=== PATIENT | male | born 1955 | race Caucasian/White ===

== ENCOUNTER 2018-06-26 08:13 | Inpatient (IN) | payer OTHER ==
[~2018-06-26] VITALS: Ht 182.9 cm; Wt 109.0 kg
[2018-06-26] MEDS ORDERED: SOD CHLORIDE 0.9% 500 ML IV STA (08:44)
[2018-06-26] MEDS ORDERED: KETOROLAC 15 MG INJ IV STA (08:44)
--- NOTE | 2018-06-26 08:55 | ERD ---
ER Documentation Chief Complaint Chief Complaint Right leg pain,redness, swelling, oozing x 1 week HPI This is a 62-year-old man with a history of chronic right lower leg ulceration presenting with increased pain, swelling, redness to the right lateral leg despite using cephalexin x10 days. He states he also has a history of right lower extremity DVT and uses rivaroxaban daily for anticoagulation. Patient denies fevers or chills, no chest pain or shortness of breath, no vomiting or diarrhea, no recent trauma ROS All systems reviewed and are negative except as per history of present illness. Medications Home Meds Reported Medications Metformin Hcl* (Metformin Hcl*) 500 Mg Tablet, 500 MG PO WITH BREAKFAST DINNE, #60 TAB 06/26/18 Hydrochlorothiazide* (Hydrochlorothiazide*) 12.5 Mg Tablet, 12.5 MG PO DAILY, #30 TAB 06/26/18 Rivaroxaban* (Xarelto*) 20 Mg Tablet, 20 MG PO WITH DINNER, TAB 06/26/18 Cephalexin* (Cephalexin*) 500 Mg Capsule, 500 MG PO BID, #28 CAP 06/26/18 Allergies Allergies: Coded Allergies: No Known Allergy (Unverified , 06/26/18) PMhx/Soc Obesity, hypertension, diabetes mellitus, right lower extremity DVT, right lower extremity ulcer FmHx Family History: No diabetes Physical Exam Vitals Vital Signs Date Temp Pulse Resp B/P (MAP) Pulse Ox O2 O2 Flow FiO2 Time Delivery Rate 06/26/18 80 16 112/76 99 Room Air 10:45 (88) 06/26/18 97.8 75 18 125/78 95 08:14 (94) Physical Exam GENERAL: Well-developed, well-nourished, well-hydrated, in no apparent distress, looks nontoxic in appearance CARDIAC: Regular rate and rhythm, no murmurs rubs or gallops LUNGS: Clear bilaterally no wheezing crackles or stridor ABDOMEN: Soft nontender, protuberant, no rigidity or rebound SKIN: Warm and dry to touch, large suppurative ulceration to the right lateral lower extremity with surrounding induration and erythema EXTREMITIES: No clubbing cyanosis, bilateral lower extremity edema worse on the right leg compared to the left, chronic erythematous skin changes to the right lower extremity with large suppurative ulceration to the right lateral leg Result Diagram: 5/13 06/26/18 0913 Results 24 hrs Laboratory Tests Test 06/26/18 09:13 White Blood Count 7.9 10^3/ul Red Blood Count 4.98 10^6/ul Hemoglobin 14.0 g/dl Hematocrit 42.7 % Mean Corpuscular Volume 85.7 fl Mean Corpuscular Hemoglobin 28.1 pg Mean Corpuscular Hemoglobin Concent 32.8 g/dl Red Cell Distribution Width 13.4 % Platelet Count 217 10^3/UL Mean Platelet Volume 9.6 fl Immature Granulocytes % 0.800 % Neutrophils % 70.1 % Lymphocytes % 18.7 % Monocytes % 7.6 % Eosinophils % 1.9 % Basophils % 0.9 % Nucleated Red Blood Cells % 0.0 /100WBC Immature Granulocytes # 0.060 10^3/ul Neutrophils # 5.5 10^3/ul Lymphocytes # 1.5 10^3/ul Monocytes # 0.6 10^3/ul Eosinophils # 0.2 10^3/ul Basophils # 0.1 10^3/ul Nucleated Red Blood Cells # 0.0 10^3/ul Prothrombin Time 21.8 Sec Prothrombin Time Ratio 1.7 INR International Normalized Ratio 1.89 Activated Partial Thromboplast Time 40.3 Sec Sodium Level 142 mmol/L Potassium Level 4.0 mmol/L Chloride Level 106 mmol/L Carbon Dioxide Level 24 mmol/L Anion Gap 12 Blood Urea Nitrogen 36 mg/dl Creatinine 1.28 mg/dl Est Glomerular Filtrat Rate mL/min 57 mL/min Glucose Level 160 mg/dl Calcium Level 9.8 mg/dl Total Bilirubin 0.4 mg/dl Direct Bilirubin 0.00 mg/dl Indirect Bilirubin 0.4 mg/dl Aspartate Amino Transf (AST/SGOT) 23 IU/L Alanine Aminotransferase (ALT/SGPT) 30 IU/L Alkaline Phosphatase 75 IU/L Total Protein 7.7 g/dl Albumin 4.5 g/dl Globulin 3.20 g/dl Albumin/Globulin Ratio 1.40 Lipase 138 U/L Current Medications Medications Dose Sig/Miquel Start Time Status Last (Trade) Ordered Route PRN Stop Time Admin Dose Reason Admin Vancomycin 250 ml @ ONCE ONCE 06/26/18 06/26/18 HCl 125 mls/hr IVPB 09:00 10:30 06/26/18 10:59 Piperacillin 100 ml @ ONCE ONCE 06/26/18 DC 06/26/18 Sod/ 200 mls/hr IVPB 09:00 09:22 Tazobactam 06/26/18 09:29 Sod Sodium 500 ml @ Q1H STAT 06/26/18 DC 06/26/18 Chloride 500 mls/hr IV 08:44 09:22 06/26/18 09:43 Ketorolac 15 mg ONCE STAT 06/26/18 DC 06/26/18 Tromethamine IV 08:44 09:22 (Toradol) 06/26/18 08:48 Procedures/MDM IV line was established patient was placed on purification director rhythm strip revealed a sinus rhythm at about 80 bpm with upright P and T waves. Patient was afebrile X-ray right tib/Fib 2V Interpreted by me: Bones: No fracture Joints: No dislocation Foreign body: None Chest X-ray 1V Interpreted by me: Soft Tissue: No acute abnormalities Bones: No acute abnormalities Mediastinum/Cardiac Silhouette/Lungs: No acute abnormalities I administered 500 cc normal saline IV, Toradol 15 mg IV, vancomycin 1 g IV, Zosyn 3.375 g IV CBC and electrolytes were normal, liver functions CBC was normal, electrolytes revealed a BUN/creatinine of 36/1.3, liver function tests were normal, coagulation profile was therapeutic Patient will be admitted to [facility] for continued medical management and IV antibiotics. Further evaluations/imaging deferred to admitting team Patient admitted to [facility] for continued IV antibiotics Departure Diagnosis: Primary Impression: Ulcer of right leg Non-pressure ulcer stage: unspecified non-pressure ulcer stage Qualified Codes: L97.919 - Non-pressure chronic ulcer of unspecified part of right lower leg with unspecified severity Condition: ROBERT Zamorano MD June 26, 2018 08:55
[2018-06-26] MEDS ORDERED: PIPER-TAZO 3.375 GM IV (PMX) 100 ML IVPB ONE (09:00)
[2018-06-26] MEDS ORDERED: VANCOMYCIN 1 GM (PMX) 250 ML IVPB ONE (09:00)
[2018-06-26] MEDS ORDERED: RIVA20TA5 PO (09:43)
[2018-06-26] MEDS ORDERED: CEPH500C PO (09:43)
[2018-06-26] MEDS ORDERED: HYDR12.58 PO (09:44)
[2018-06-26] MEDS ORDERED: METF500T24 PO (09:45)
--- NOTE | 2018-06-26 15:14 | CONS ---
Assessment/Plan Assessment/Plan Hospital Course (Demo Recall) 1. RLE cellulitis: -abx iv -elevate -local wound care 2. RLE pain: -pain mgt 3. Diabetes: -glucose optimization 4. Obesity: bmi 32 -diet and exercise optimization -encourage weight loss 5. Homelessness: -ss consult Thank you. Patient seen and examined in collaboration with Dr. Darrell Ledezma. Consultation Date/Type/Reason Admit Date/Time Date of Consultation: June 26, 2018 Type of Consult surgical Reason for Consultation rle cellulitis Date/Time of Note DATE: 06/26/18 TIME: 15:05 Hx of Present Illness Matthieu Park is a 62 yo man with pmh of diabtese, right lower extremity dvt, currently on anticoagulation, who presented with complaints of right lower extremity pain, swelling, discoloration. Associated symptoms include erythema, some drainage an limitation in rom due to pain. Reportedly he was given taking oral abx but rle has not improved. He denies fevers, chills, congested cough, numbness, tingling of extremity. Notably, he reports that he has recently become homeless and has been living in his car. General surgery was asked to evaluate. 12 point ros was reviewed and is negative except as stated in hpi. Past Medical History as above Home Meds Reported Medications Metformin Hcl* (Metformin Hcl*) 500 Mg Tablet, 500 MG PO WITH BREAKFAST DINNE, #60 TAB 06/26/18 Hydrochlorothiazide* (Hydrochlorothiazide*) 12.5 Mg Tablet, 12.5 MG PO DAILY, #30 TAB 06/26/18 Rivaroxaban* (Xarelto*) 20 Mg Tablet, 20 MG PO WITH DINNER, TAB 06/26/18 Cephalexin* (Cephalexin*) 500 Mg Capsule, 500 MG PO BID, #28 CAP 06/26/18 Allergies: Coded Allergies: No Known Allergy (Unverified , 06/26/18) Past Surgical History Past Surgical Hx: no surgical history Family History Significant Family History: no pertinent family hx Social History Alcohol Use: none Smoking Status: Never smoker Drug Use: none Exam/Review of Systems Exam Vitals Vital Signs Date Temp Pulse Resp B/P (MAP) Pulse Ox O2 O2 Flow FiO2 Time Delivery Rate 06/26/18 78 16 133/85 99 Room Air 15:00 (101) 06/26/18 97.8 08:14 Constitutional: alert, oriented, well developed Psych: nl mood/affect; No anxiety Eyes: nl conjunctiva, EOMI, nl lids, nl sclera ENMT: nl external ears & nose, nl lips & teeth, nl nasal mucosa & septum, mucos a pink and moist Neck: supple, non-tender; No jvd Respiratory: normal air movement; No congested cough Cardiovascular: regular rate and rhythm, nl pulses Gastrointestinal: soft, non-tender; No distended Musculoskeletal: nl extremities to inspection, nl gait and stance Extremities: normal pulses, other (rle: edema, discoloration, erythema, 2 open areas, tenderness) Neurological: nl mental status, nl speech, nl strength Skin: No rash or lesions Results Result Diagram: 06/26/1891206/26/18912 Results 24hrs Laboratory Tests Test 06/26/18 09:13 White Blood Count 7.9 Red Blood Count 4.98 Hemoglobin 14.0 Hematocrit 42.7 Mean Corpuscular Volume 85.7 Mean Corpuscular Hemoglobin 28.1 L Mean Corpuscular Hemoglobin Concent 32.8 Red Cell Distribution Width 13.4 Platelet Count 217 Mean Platelet Volume 9.6 Immature Granulocytes % 0.800 H Neutrophils % 70.1 Lymphocytes % 18.7 Monocytes % 7.6 Eosinophils % 1.9 Basophils % 0.9 Nucleated Red Blood Cells % 0.0 Immature Granulocytes # 0.060 H Neutrophils # 5.5 Lymphocytes # 1.5 Monocytes # 0.6 Eosinophils # 0.2 Basophils # 0.1 Nucleated Red Blood Cells # 0.0 Prothrombin Time 21.8 H Prothrombin Time Ratio 1.7 INR International Normalized Ratio 1.89 Activated Partial Thromboplast Time 40.3 H Sodium Level 142 Potassium Level 4.0 Chloride Level 106 Carbon Dioxide Level 24 Anion Gap 12 Blood Urea Nitrogen 36 H Creatinine 1.28 H Est Glomerular Filtrat Rate mL/min 57 L Glucose Level 160 Calcium Level 9.8 Total Bilirubin 0.4 Direct Bilirubin 0.00 Indirect Bilirubin 0.4 Aspartate Amino Transf (AST/SGOT) 23 Alanine Aminotransferase (ALT/SGPT) 30 Alkaline Phosphatase 75 Total Protein 7.7 Albumin 4.5 Globulin 3.20 Albumin/Globulin Ratio 1.40 Lipase 138 ZAY GASCA NP June 26, 2018 15:14
[2018-06-26 16:30] VITALS: BP 138/68; PULSE 60; RESP 17
[2018-06-26] MEDS ORDERED: ACETAMINOPHEN 325 MG TAB PO PRN (16:30)
[2018-06-26] MEDS ORDERED: VANCOMYCIN IV PER PHARMACY XX SCH (16:30)
[2018-06-26] MEDS ORDERED: NACL 0.9% 3 ML SYG IV SCH (16:30)
[2018-06-26] MEDS ORDERED: ONDANSETRON 4 MG INJ IV PRN (16:30)
[2018-06-26] MEDS ORDERED: DOCUSATE SODIUM 100 MG CAP PO PRN (16:30)
[2018-06-26] MEDS ORDERED: HYDROCODONE/APAP (5/325) TAB PO PRN (16:30)
[2018-06-26] MEDS ORDERED: ZOLPIDEM 5 MG TAB PO PRN (16:30)
[2018-06-26] MEDS ORDERED: PIPER-TAZO 3.375 GM IV (PMX) 100 ML IVPB SCH (17:00)
[2018-06-26] MEDS ORDERED: VANCOMYCIN 1 GM 250 ML IVPB ONE (17:00)
--- NOTE | 2018-06-26 17:05 | HP ---
Date/Time of Note Date/Time of Note DATE: 06/26/18 TIME: 17:00 Assessment/Plan VTE Prophylaxis Pharmacological prophylaxis: rivaroxaban Lines/Catheters IV [facility] Assessment/Plan Hospital Course 1. Right lower extremity cellulitis Patient with history of phimosis in this extremity, diagnosed 1 year ago and has been on Xarelto since with no improvement in baseline swelling Patient now reports progressive erythema and swelling Broad-spectrum antibiotics with vancomycin and Zosyn ID and wound care consultations obtained Resume home Xarelto X-ray with no evidence of fracture Follow-up on ultrasound 2. 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 Prophylaxis: On Xarelto Result Diagram: 06/26/1813 06/26/18 0913 Results 24hrs Laboratory Tests Test 06/26/18 09:13 White Blood Count 7.9 Red Blood Count 4.98 Hemoglobin 14.0 Hematocrit 42.7 Mean Corpuscular Volume 85.7 Mean Corpuscular Hemoglobin 28.1 L Mean Corpuscular Hemoglobin Concent 32.8 Red Cell Distribution Width 13.4 Platelet Count 217 Mean Platelet Volume 9.6 Immature Granulocytes % 0.800 H Neutrophils % 70.1 Lymphocytes % 18.7 Monocytes % 7.6 Eosinophils % 1.9 Basophils % 0.9 Nucleated Red Blood Cells % 0.0 Immature Granulocytes # 0.060 H Neutrophils # 5.5 Lymphocytes # 1.5 Monocytes # 0.6 Eosinophils # 0.2 Basophils # 0.1 Nucleated Red Blood Cells # 0.0 Prothrombin Time 21.8 H Prothrombin Time Ratio 1.7 INR International Normalized Ratio 1.89 Activated Partial Thromboplast Time 40.3 H Sodium Level 142 Potassium Level 4.0 Chloride Level 106 Carbon Dioxide Level 24 Anion Gap 12 Blood Urea Nitrogen 36 H Creatinine 1.28 H Est Glomerular Filtrat Rate mL/min 57 L Glucose Level 160 Calcium Level 9.8 Total Bilirubin 0.4 Direct Bilirubin 0.00 Indirect Bilirubin 0.4 Aspartate Amino Transf (AST/SGOT) 23 Alanine Aminotransferase (ALT/SGPT) 30 Alkaline Phosphatase 75 Total Protein 7.7 Albumin 4.5 Globulin 3.20 Albumin/Globulin Ratio 1.40 Lipase 138 HPI/ROS Admit Date/Time Admit Date/Time June 26, 2018 Hx of Present Illness Patient is a 62-year-old male with history of diabetes as well as right lower extremity thrombosis diagnosed 1 year ago and has been on Xarelto for the past year. Patient is also currently homeless and lives in his car. Patient p resents with worsening swelling and erythema in his right lower extremity as well as abrasion. Patient reports compliance with his Xarelto and states that he continues to have swelling at baseline and his right lower extremity. Patient has no other complaints at this time. ROS Constitutional: no complaints, improved Eyes: no complaints ENT: no complaints Respiratory: no complaints Cardiovascular: no complaints Gastrointestinal: no complaints Genitourinary: no complaints Musculoskeletal: no complaints Skin: erythema Neurologic: no complaints Endocrine: no complaints Lymphatic: no complaints Psychological: no complaints, nl mood/affect Immunologic: no complaints PMH/Family/Social Past Medical History Diabetes, right lower extremity thrombosis Medications Current Medications IV Flush (NS 3 ml) 3 ml PER PROTOCOL IV ; Start 06/26/18 at 16:30 Ondansetron HCl (Zofran Inj) 4 mg Q6H PRN IV NAUSEA/VOMITING; Start 06/26/18 at 16:30 Acetaminophen (Tylenol Tab) 650 mg Q6H PRN PO .PAIN 1-3 OR TEMP; Start 06/26/18 at 16:30 Acetaminophen/ Hydrocodone Bitart ([place] (5/325)) 1 tab Q6H PRN PO .MOD PAIN 4- 6; Start 06/26/18 at 16:30 Morphine Sulfate (morphine) 2 mg Q4H PRN IV .SEVERE PAIN 7-10; Start 06/26/18 at 16:30 Docusate Sodium (Colace) 100 mg Q12H PRN PO .CONSTIPATION; Start 06/26/18 at 16 :30 Zolpidem Tartrate (Ambien) 5 mg QHS PRN PO .INSOMNIA; Start 06/26/18 at 16:30 Hydrochlorothiazide (Hydrochlorothiazide) 12.5 mg DAILY@0600 PO ; Start 06/27/18 at 06:00 Rivaroxaban (Xarelto) 20 mg WITH DINNER PO ; Start 06/26/18 at 18:05 Diagnostic Test (Pha) (Accu-Chek) 1 ea 02 XX ; Start 06/27/18 at 02:00 Insulin Glargine (Lantus) 14 units DAILY@2000 SC ; Start 06/26/18 at 20:00 Insulin Aspart (Novolog Insulin Pen) NOVOLOG *MILD* ALGORITHM WITH MEALS BEDTIME SC ; Start 06/26/18 at 18:05 Vancomycin HCl (Vanco Iv Per Pharmacy) VANCOMYCIN PER PHARMACY PER PROTOCOL XX ; Start 06/26/18 at 16:30 Piperacillin Sod/ Tazobactam Sod 100 ml @ 200 mls/hr Q6 IVPB ; Start 06/26/18 at 17:00 Vancomycin HCl 250 ml @ 125 mls/hr ONCE ONCE IVPB ; Start 06/26/18 at 17:00; Stop 06/26/18 at 18:59 Vancomycin HCl 250 ml @ 125 mls/hr Q12H IVPB ; Start 06/27/18 at 05:00 Coded Allergies: No Known Allergy (Unverified , 06/26/18) Past Surgical History Past Surgical Hx: no surgical history Family History Significant Family History: no pertinent family hx Social History Alcohol Use: none Smoking Status: Never smoker Drug Use: none Exam/Review of Systems Vital Signs Vitals Vital Signs Date Temp Pulse Resp B/P (MAP) Pulse Ox O2 O2 Flow FiO2 Time Delivery Rate 06/26/18 78 16 133/85 99 Room Air 15:00 (101) 06/26/18 97.8 08:14 Exam Constitutional: alert, oriented Respiratory: clear to auscultation Cardiovascular: regular rate and rhythm Gastrointestinal: soft; No distended Musculoskeletal: other (Right lower extremity with severe erythema, swelling and laceration) SULEIMAN VÁZQUEZ June 26, 2018 17:05
[2018-06-26] MEDS: morphine 2 MG INJ IV PRN (17:11)
[2018-06-26] MEDS: INSULIN ASPART [NOVOLOG] 3 ML PEN SC SCH ×2 (18:05→20:21)
[2018-06-26 18:26] VITALS: Ht 182.9 cm; Wt 109.0 kg
[2018-06-26] MEDS: RIVAROXABAN 20 MG TABLET PO SCH (18:59)
[2018-06-26 20:00] VITALS: BP 120/64; PULSE 63; RESP 18
[2018-06-26] MEDS: CEFTRIAXONE 1 GM/50 ML (PMX) 50 ML IVPB SCH (20:06)
--- NOTE | 2018-06-26 20:08 | CONS ---
DATE OF ADMISSION: 06/26/2018 DATE OF CONSULTATION: 06/26/2018 REQUESTING PHYSICIAN: Dr. Suleiman Munoz Thank you, Dr. Munoz, for this consultation HISTORY OF PRESENT ILLNESS: This is a very pleasant, obese, elderly white man with a history of diabetes and chronic bilateral lower extremity venous stasis, right lower extremity chronic cellulitis. The patient was admitted with worsening pain, swelling and erythema of his right lower extremity. Per report, he is homeless and lives in his car. He denies fevers, chills, nausea, vomiting, diarrhea. No chest pain. No shortness of breath. Temperature on admission 97.8, pulse 75, respirations 18, blood pressure 125/78, saturation 95 on room air. WBC 7.9, H and H 14 and 42.7, platelets 217. No shift, no bands. Normal lytes. BUN 36, creatinine 1.28. Chest x-ray on admission revealed no CHF, bilateral atelectasis and scarring. X-ray of right lower extremity revealed no bone lesions or evidence of fracture, moderate osteoarthritis of the ankle. THE PATIENT HAS NO ALLERGIES. He was started on vanco and Zosyn. PAST MEDICAL HISTORY: As per History of Present Illness. SOCIAL HISTORY: The patient denies smoking, alcohol, illicits. REVIEW OF SYSTEMS: As per history. PHYSICAL EXAMINATION: GENERAL: This is obese, well-developed, elderly man who is alert, in no distress. HEENT: Head atraumatic, normocephalic. Sclerae anicteric. Buccal mucosa pink. NECK: Supple. CHEST: Rise symmetrical. Breath sounds clear. HEART: S1, S2. ABDOMEN: Obese, soft. Bowel tones present. EXTREMITIES: With bilateral lower extremity chronic discoloration below knees. Right lower extremity with significant edema, erythema, some old crusting and foul odor. DIAGNOSTIC IMPRESSION: A 62-year-old man admitted with [id number] right lower extremity cellulitis. The patient with bilateral lower extremity venous stasis. PLAN: We are going to change Zosyn to cefepime, add Silvadene topical to right lower extremity. Order venous ultrasound and arterial study and consider podiatry evaluation. We will also do an MRSA surveillance and try to obtain wound culture if able. Discussed with Dr. eJff who is covering for Dr. Soliz. Dictated By: NERA ISMAIL-REN ELIZALDE/NTS Conf#: [id number] DID#: [id number] CC: SULEIMAN MUNOZ MD;*EndCC* MTDD
[2018-06-26] MEDS: SILVER SULFADIAZINE 1% 25 GM CR TOP SCH (20:22)
[2018-06-26] MEDS: INSULIN GLARGINE [LANTus] (100 UNITS/ML) SYG SC SCH (20:42)
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
[2018-06-27 01:51] VITALS: BP 116/67; PULSE 65; RESP 18
[2018-06-27] MEDS: ACCU-CHEK XX SCH (02:45)
[2018-06-27] MEDS: HYDROCHLOROTHIAZIDE 12.5 MG CAP PO SCH (05:17)
[2018-06-27] MEDS: VANCOMYCIN 1 GM 250 ML IVPB SCH ×2 (05:20→18:07)
[2018-06-27] MEDS: morphine 2 MG INJ IV PRN ×3 (05:35→22:14)
[2018-06-27] MEDS: INSULIN ASPART [NOVOLOG] 3 ML PEN SC SCH ×4 (07:50→20:43)
[2018-06-27 08:00] VITALS: BP 118/71; PULSE 56; RESP 18
[2018-06-27] MEDS ORDERED: DAKINS 0.0125%(1/40) 473 ML SOLUTION TP SCH (09:00)
--- NOTE | 2018-06-27 13:48 | PN ---
Date/Time of Note Date/Time of Note DATE: 06/27/18 TIME: 13:46 Assessment/Plan Lines/Catheters IV Catheter Type (from Nrs): Peripheral IV Flores in Place (from Nrs): No Assessment/Plan Chief Complaint/Hosp Course 1. RLE cellulitis: -abx iv -elevate -local wound care -podiatry on board, will defer to podiatry at this time. will sign off. Thank you for allowing us to participate in the care of this patient. 2. RLE pain: -pain mgt 3. Diabetes: -glucose optimization 4. Obesity: bmi 32 -diet and exercise optimization -encourage weight loss 5. Homelessness: -ss consult Thank you. Patient seen and examined in collaboration with Dr. Darrell Ledezma. Subjective 24 Hr Interval Summary No fevers, chills, sob, congested cough, cp, palpitations, mitchell, dizziness, n/v/d/dysuria. Exam/Review of Systems Vital Signs Vitals Vital Signs Date Temp Pulse Resp B/P (MAP) Pulse Ox O2 O2 Flow FiO2 Time Delivery Rate 06/27/18 97.9 56 18 118/71 94 Room Air 08:00 (87) Intake and Output 06/26/18 06/26/18 06/27/18 1515:00 23:00 07:00 IntakeIntake Total 850 ml 450 ml 320 ml BalanceBalance 850 ml 450 ml 320 ml Exam Free Text/Dictation Constitutional: alert, oriented, well developed Psych: nl mood/affect; No anxiety Eyes: nl conjunctiva, EOMI, nl lids, nl sclera ENMT: nl external ears & nose, nl lips & teeth, nl nasal mucosa & septum, mucosa pink and moist Neck: supple, non-tender; No jvd Respiratory: normal air movement; No congested cough Cardiovascular: regular rate and rhythm, nl pulses Gastrointestinal: soft, non-tender; No distended Musculoskeletal: nl extremities to inspection, nl gait and stance Extremities: normal pulses, other (rle: edema (min improvement), discoloration, erythema, 2 open areas, tenderness) Neurological: nl mental status, nl speech, nl strength Skin: No rash or lesions Results Result Diagram: 06/27/18 0609 06/27/18 0609 ZAY GASCA NP June 27, 2018 13:48
[2018-06-27 14:00] VITALS: BP 102/53; PULSE 62; RESP 17
--- NOTE | 2018-06-27 16:27 | CONS ---
Assessment/Plan Assessment/Plan Hospital Course (Demo Recall) Alert feels okay looks comfortable no fevers overnight WBC 6.3 no shift no bands BUN 26 creatinine 1.12 Antimicrobials: Vancomycin and Rocephin Microbiology: Cultures pending PHYSICAL EXAMINATION: GENERAL: This is obese, well-developed, elderly man who is alert, in no distress. HEENT: Head atraumatic, normocephalic. Sclerae anicteric. Buccal mucosa pink. NECK: Supple. CHEST: Rise symmetrical. Breath sounds clear. HEART: S1, S2. ABDOMEN: Obese, soft. Bowel tones present. EXTREMITIES: With bilateral lower extremity chronic discoloration below knees. Right lower extremity [place] wrapped Assessment: 1. Right lower extremity acute on chronic cellulitis 2. Bilateral lower extremities chronic venous stasis 3. Diabetes 4. Homelessness Plan: Remains stable, continue present care and antibiotics, follow podiatry recommendations Consultation Date/Type/Reason Admit Date/Time June 26, 2018 at 10:23 Initial Consult Date 06/26/18 Type of Consult id Date/Time of Note DATE: 06/27/18 TIME: 16:27 Exam/Review of Systems Exam Vitals Vital Signs Date Temp Pulse Resp B/P (MAP) Pulse Ox O2 O2 Flow FiO2 Time Delivery Rate 06/27/18 97.9 62 17 102/53 94 Room Air 14:00 (69) Intake and Output 06/26/18 06/26/18 06/27/18 1515:00 23:00 07:00 IntakeIntake Total 850 ml 450 ml 320 ml BalanceBalance 850 ml 450 ml 320 ml Results Result Diagram: 06/27/18 0609 06/27/18 0609 Results 24hrs Laboratory Tests Test 06/26/18 17:54 06/26/18 20:12 06/26/18 20:38 06/27/18 02:06 Bedside Glucose 109 232 H 120 Erythrocyte 32 H Sedimentation Rate C-Reactive Protein 1.5 H Procalcitonin 0.07 Test 06/27/18 06:09 06/27/18 07:45 06/27/18 12:24 White Blood Count 6.3 # Red Blood Count 3.96 #L Hemoglobin 11.3 L Hematocrit 34.7 L Mean Corpuscular 87.6 Volume Mean Corpuscular 28.5 L Hemoglobin Mean Corpuscular 32.6 Hemoglobin Concent Red Cell 13.2 Distribution Width Platelet Count 173 # Mean Platelet Volume 9.5 Immature 1.000 H Granulocytes % Neutrophils % 63.3 Lymphocytes % 20.8 Monocytes % 11.4 H Eosinophils % 2.7 Basophils % 0.8 Nucleated Red Blood 0.0 Cells % Immature 0.060 H Granulocytes # Neutrophils # 4.0 Lymphocytes # 1.3 Monocytes # 0.7 Eosinophils # 0.2 Basophils # 0.1 Nucleated Red Blood 0.0 Cells # Sodium Level 141 Potassium Level 4.0 Chloride Level 111 H Carbon Dioxide Level 26 Anion Gap 4 #L Blood Urea Nitrogen 26 H Creatinine 1.12 Est Glomerular > 60 Filtrat Rate mL/min Glucose Level 122 Hemoglobin A1c 6.6 H Calcium Level 8.6 Phosphorus Level 3.7 Magnesium Level 2.0 Bedside Glucose 141 170 Medications Medication Current Medications IV Flush (NS 3 ml) 3 ml PER PROTOCOL IV ; Start 06/26/18 at 16:30 Ondansetron HCl (Zofran Inj) 4 mg Q6H PRN IV NAUSEA/VOMITING; Start 06/26/18 at 16:30 Acetaminophen (Tylenol Tab) 650 mg Q6H PRN PO .PAIN 1-3 OR TEMP; Start 06/26/18 at 16:30 Acetaminophen/ Hydrocodone Bitart ([place] (5/325)) 1 tab Q6H PRN PO .MOD PAIN 4- 6; Start 06/26/18 at 16:30 Morphine Sulfate (morphine) 2 mg Q4H PRN IV .SEVERE PAIN 7-10 Last administered on 06/27/18at 05:35; Admin Dose 2 MG; Start 06/26/18 at 16:30 Docusate Sodium (Colace) 100 mg Q12H PRN PO .CONSTIPATION; Start 06/26/18 at 16:30 Zolpidem Tartrate (Ambien) 5 mg QHS PRN PO .INSOMNIA; Start 06/26/18 at 16:30 Hydrochlorothiazide (Hydrochlorothiazide) 12.5 mg DAILY@0600 PO Last administered on 06/27/18at 05:17; Admin Dose 12.5 MG; Start 06/27/18 at 06:00 Rivaroxaban (Xarelto) 20 mg WITH DINNER PO Last administered on 06/26/18at 18:59; Admin Dose 20 MG; Start 06/26/18 at 18:05 Diagnostic Test (Pha) (Accu-Chek) 1 02 XX Last administered on 06/27/18 02:45; Admin Dose 1 EA; Start 06/27/18 at 02:00 Insulin Glargine (Lantus) 14 units DAILY@2000 SC Last administered on 06/26/18 20:42; Admin Dose 14 UNITS; Start 06/26/18 at 20:00 Insulin Aspart (Novolog Insulin Pen) NOVOLOG *MILD* ALGORITHM WITH MEALS BEDTIME SC Last administered on 06/27/18 12:27; Admin Dose 1 UNIT; Start 06/26/18 at 18:05 Vancomycin HCl (Vanco Iv Per Pharmacy) VANCOMYCIN PER PHARMACY PER PROTOCOL XX ; Start 06/26/18 at 16:30 Vancomycin HCl 250 ml @ 125 mls/hr Q12H IVPB Last administered on 06/27/18 05:20; Admin Dose 125 MLS/HR; Start 06/27/18 at 05:00 Ceftriaxone Sodium 50 ml @ 100 mls/hr Q24H IVPB Last administered on 06/26/18 20:06; Admin Dose 100 MLS/HR; Start 06/26/18 at 17:30 Silver Sulfadiazine (Thermazene 1% 25 Gm) 1 applic TID TOP Last administered on 06/26/18 20:22; Admin Dose 1 APPLIC; Start 06/26/18 at 21:00 Sodium Hypochlorite (Dakins Diluted (40)) 1 applic DAILY TP ; Start 06/27/18 at 09:00 GREGORY BAPTISTE NP June 27, 2018 16:27
[2018-06-27] MEDS: SILVER SULFADIAZINE 1% 25 GM CR TOP SCH ×3 (16:58→20:44)
[2018-06-27] MEDS: DAKINS 0.0125%(1/40) 473 ML SOLUTION TP SCH (16:58)
[2018-06-27] MEDS: CEFTRIAXONE 1 GM/50 ML (PMX) 50 ML IVPB SCH (18:06)
[2018-06-27] MEDS: RIVAROXABAN 20 MG TABLET PO SCH (18:07)
--- NOTE | 2018-06-27 19:03 | PN ---
Date/Time of Note Date/Time of Note DATE: 06/27/18 TIME: 19:01 Assessment/Plan VTE Prophylaxis Risk score (from Nsg)>0 risk: 7 Pharmacological prophylaxis: rivaroxaban Lines/Catheters IV Catheter Type (from Nrsg): Peripheral IV Urinary Cath still in place: No Assessment/Plan Hospital Course 1. Right lower extremity cellulitis Patient with history of thrombosis in this extremity, diagnosed 1 year ago and has been on Xarelto since with no improvement in baseline swelling Patient now reports progressive erythema and swelling Broad-spectrum antibiotics with vancomycin and Zosyn ID and wound care consultations Continue home Xarelto X-ray with no evidence of fracture Ultrasound of the extremity shows a possible chronic deep venous thrombus involving the right femoral vein and right popliteal vein Vascular surgery consultation obtained for evaluation of persistent venous thrombosis 2. Diabetes-sugars currently stable Hold home metformin Schedule Lantus and sliding scale A1c at 6.6 3. 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 Prophylaxis: On Xarelto Result Diagram: 06/27/18 0609 06/27/18 0609 Results 24hrs Laboratory Tests Test 06/26/18 20:12 06/26/18 20:38 06/27/18 02:06 06/27/18 06:09 Bedside Glucose 232 H 120 Erythrocyte 32 H Sedimentation Rate C-Reactive Protein 1.5 H Procalcitonin 0.07 White Blood Count 6.3 # Red Blood Count 3.96 #L Hemoglobin 11.3 L Hematocrit 34.7 L Mean Corpuscular 87.6 Volume Mean Corpuscular 28.5 L Hemoglobin Mean Corpuscular 32.6 Hemoglobin Concent Red Cell 13.2 Distribution Width Platelet Count 173 # Mean Platelet Volume 9.5 Immature 1.000 H Granulocytes % Neutrophils % 63.3 Lymphocytes % 20.8 Monocytes % 11.4 H Eosinophils % 2.7 Basophils % 0.8 Nucleated Red Blood 0.0 Cells % Immature 0.060 H Granulocytes # Neutrophils # 4.0 Lymphocytes # 1.3 Monocytes # 0.7 Eosinophils # 0.2 Basophils # 0.1 Nucleated Red Blood 0.0 Cells # Sodium Level 141 Potassium Level 4.0 Chloride Level 111 H Carbon Dioxide Level 26 Anion Gap 4 #L Blood Urea Nitrogen 26 H Creatinine 1.12 Est Glomerular > 60 Filtrat Rate mL/min Glucose Level 122 Hemoglobin A1c 6.6 H Calcium Level 8.6 Phosphorus Level 3.7 Magnesium Level 2.0 Test 06/27/18 07:45 06/27/18 12:24 06/27/18 16:57 Bedside Glucose 141 170 100 Subjective 24 Hr Interval Summary Constitutional: no complaints Exam/Review of Systems Exam Vitals Vital Signs Date Temp Pulse Resp B/P (MAP) Pulse Ox O2 O2 Flow FiO2 Time Delivery Rate 06/27/18 97.9 62 17 102/53 94 Room Air 14:00 (69) Intake and Output 06/26/18 06/26/18 06/27/18 1515:00 23:00 07:00 IntakeIntake Total 850 ml 450 ml 320 ml BalanceBalance 850 ml 450 ml 320 ml Constitutional: alert, oriented Respiratory: clear to auscultation Cardiovascular: regular rate and rhythm Gastrointestinal: soft; No distended Musculoskeletal: No nl extremities to inspection Results Results 24hrs Laboratory Tests Test 06/26/18 20:12 06/26/18 20:38 06/27/18 02:06 06/27/18 06:09 Bedside Glucose 232 H 120 Erythrocyte 32 H Sedimentation Rate C-Reactive Protein 1.5 H Procalcitonin 0.07 White Blood Count 6.3 # Red Blood Count 3.96 #L Hemoglobin 11.3 L Hematocrit 34.7 L Mean Corpuscular 87.6 Volume Mean Corpuscular 28.5 L Hemoglobin Mean Corpuscular 32.6 Hemoglobin Concent Red Cell 13.2 Distribution Width Platelet Count 173 # Mean Platelet Volume 9.5 Immature 1.000 H Granulocytes % Neutrophils % 63.3 Lymphocytes % 20.8 Monocytes % 11.4 H Eosinophils % 2.7 Basophils % 0.8 Nucleated Red Blood 0.0 Cells % Immature 0.060 H Granulocytes # Neutrophils # 4.0 Lymphocytes # 1.3 Monocytes # 0.7 Eosinophils # 0.2 Basophils # 0.1 Nucleated Red Blood 0.0 Cells # Sodium Level 141 Potassium Level 4.0 Chloride Level 111 H Carbon Dioxide Level 26 Anion Gap 4 #L Blood Urea Nitrogen 26 H Creatinine 1.12 Est Glomerular > 60 Filtrat Rate mL/min Glucose Level 122 Hemoglobin A1c 6.6 H Calcium Level 8.6 Phosphorus Level 3.7 Magnesium Level 2.0 Test 06/27/18 07:45 06/27/18 12:24 06/27/18 16:57 Bedside Glucose 141 170 100 Medications Medication Current Medications IV Flush (NS 3 ml) 3 ml PER PROTOCOL IV ; Start 06/26/18 at 16:30 Ondansetron HCl (Zofran Inj) 4 mg Q6H PRN IV NAUSEA/VOMITING; Start 06/26/18 at 16:30 Acetaminophen (Tylenol Tab) 650 mg Q6H PRN PO .PAIN 1-3 OR TEMP; Start 06/26/18 at 16:30 Acetaminophen/ Hydrocodone Bitart ([place] (5/325)) 1 tab Q6H PRN PO .MOD PAIN 4- 6; Start 06/26/18 at 16:30 Morphine Sulfate (morphine) 2 mg Q4H PRN IV .SEVERE PAIN 7-10 Last administered on 06/27/18at 18:14; Admin Dose 2 MG; Start 06/26/18 at 16:30 Docusate Sodium (Colace) 100 mg Q12H PRN PO .CONSTIPATION; Start 06/26/18 at 16:30 Zolpidem Tartrate (Ambien) 5 mg QHS PRN PO .INSOMNIA; Start 06/26/18 at 16:30 Hydrochlorothiazide (Hydrochlorothiazide) 12.5 mg DAILY@0600 PO Last administered on 06/27/18 05:17; Admin Dose 12.5 MG; Start 06/27/18 at 06:00 Rivaroxaban (Xarelto) 20 mg WITH DINNER PO Last administered on 06/27/18 18:07; Admin Dose 20 MG; Start 06/26/18 at 18:05 Diagnostic Test (Pha) (Accu-Chek) 1 ea 02 XX Last administered on 06/27/18at 02:45; Admin Dose 1 EA; Start 06/27/18 at 02:00 Insulin Glargine (Lantus) 14 units DAILY@2000 SC Last administered on 06/26/18 20:42; Admin Dose 14 UNITS; Start 06/26/18 at 20:00 Insulin Aspart (Novolog Insulin Pen) NOVOLOG *MILD* ALGORITHM WITH MEALS BEDTIME SC Last administered on 06/27/18 12:27; Admin Dose 1 UNIT; Start 06/26/18 at 18:05 Vancomycin HCl (Vanco Iv Per Pharmacy) VANCOMYCIN PER PHARMACY PER PROTOCOL XX ; Start 06/26/18 at 16:30 Vancomycin HCl 250 ml @ 125 mls/hr Q12H IVPB Last administered on 5/23/19at 18:07; Admin Dose 125 MLS/HR; Start 06/27/18 at 05:00 Ceftriaxone Sodium 50 ml @ 100 mls/hr Q24H IVPB Last administered on 06/27/18at 18:06; Admin Dose 100 MLS/HR; Start 06/26/18 at 17:30 Silver Sulfadiazine (Thermazene 1% 25 Gm) 1 applic TID TOP Last administered on 06/27/18at 18:15; Admin Dose 1 APPLIC; Start 06/26/18 at 21:00 Sodium Hypochlorite (Dakins Diluted ()) 1 applic DAILY TP Last administered on 06/27/18at 16:58; Admin Dose 1 APPLIC; Start 06/27/18 at 09:00 Miscellaneous Information (*Rx Drug Level Order Reminder*) VANCOMYCIN TROUGH AT 0400 0400 ONCE XX ; Start 06/28/18 at 04:00; Stop 06/28/18 at 04:01 SULEIMAN VÁZQUEZ June 27, 2018 19:03
[2018-06-27] MEDS: INSULIN GLARGINE [LANTus] (100 UNITS/ML) SYG SC SCH (20:42)
[2018-06-27 20:46] VITALS: BP 133/65; PULSE 63; RESP 16
[2018-06-28] MEDS: ACCU-CHEK XX SCH (02:12)
[2018-06-28 02:41] VITALS: BP 98/55; PULSE 55; RESP 16
[2018-06-28] MEDS: morphine 2 MG INJ IV PRN ×3 (04:39→19:01)
[2018-06-28] MEDS: VANCOMYCIN 1 GM 250 ML IVPB SCH ×2 (05:01→17:37)
[2018-06-28] MEDS: HYDROCHLOROTHIAZIDE 12.5 MG CAP PO SCH (06:00)
[2018-06-28 07:50] VITALS: BP 109/59; PULSE 53; RESP 16
[2018-06-28] MEDS: INSULIN ASPART [NOVOLOG] 3 ML PEN SC SCH ×4 (07:51→21:00)
[2018-06-28] MEDS: SILVER SULFADIAZINE 1% 25 GM CR TOP SCH ×3 (07:55→21:15)
[2018-06-28] MEDS: DAKINS 0.0125%(1/40) 473 ML SOLUTION TP SCH (07:56)
[2018-06-28 14:07] VITALS: BP 144/84; PULSE 52; RESP 16
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
--- NOTE | 2018-06-28 14:59 | CONS ---
Assessment/Plan Assessment/Plan Hospital Course (Demo Recall) No acute changes, patient looks comfortable, no fevers Antimicrobials: Vancomycin and Rocephin Microbiology: Cultures pending PHYSICAL EXAMINATION: GENERAL: This is obese, well-developed, elderly man who is alert, in no distress. HEENT: Head atraumatic, normocephalic. Sclerae anicteric. Buccal mucosa pink. NECK: Supple. CHEST: Rise symmetrical. Breath sounds clear. HEART: S1, S2. ABDOMEN: Obese, soft. Bowel tones present. EXTREMITIES: With bilateral lower extremity chronic discoloration below knees. Right lower extremity [place] wrapped Assessment: 1. Right lower extremity acute on chronic cellulitis 2. Bilateral lower extremities chronic venous stasis 3. Diabetes 4. Homelessness Plan: Remains stable, continue present care and antibiotics, vascular surgery and podiatry recommendations noted, continue compression dressings Consultation Date/Type/Reason Admit Date/Time June 26, 2018 at 10:23 Initial Consult Date 06/26/18 Type of Consult id Date/Time of Note DATE: 06/28/18 TIME: 14:58 Exam/Review of Systems Exam Vitals Vital Signs Date Temp Pulse Resp B/P (MAP) Pulse Ox O2 O2 Flow FiO2 Time Delivery Rate 06/28/18 97.9 52 16 144/84 97 Room Air 14:07 (104) Intake and Output 06/27/18 06/27/18 06/28/18 1515:00 23:00 07:00 IntakeIntake Total 1070 ml 900 ml BalanceBalance 1070 ml 900 ml Results Result Diagram: 06/27/18 0609 06/28/18 0405 Results 24hrs Laboratory Tests Test 06/27/18 16:57 06/27/18 20:39 06/28/18 02:15 06/28/18 04:05 Bedside Glucose 100 234 H 168 Blood Urea Nitrogen 23 H Creatinine 1.15 Vancomycin Level 12.1 Trough Test 06/28/18 07:50 06/28/18 12:03 Bedside Glucose 129 158 Medications Medication Current Medications IV Flush (NS 3 ml) 3 ml PER PROTOCOL IV ; Start 06/26/18 at 16:30 Ondansetron HCl (Zofran Inj) 4 mg Q6H PRN IV NAUSEA/VOMITING; Start 06/26/18 at 16:30 Acetaminophen (Tylenol Tab) 650 mg Q6H PRN PO .PAIN 1-3 OR TEMP; Start 06/26/18 at 16:30 Acetaminophen/ Hydrocodone Bitart ([place] (5/325)) 1 tab Q6H PRN PO .MOD PAIN 4- 6; Start 06/26/18 at 16:30 Morphine Sulfate (morphine) 2 mg Q4H PRN IV .SEVERE PAIN 7-10 Last administered on 06/28/18 13:12; Admin Dose 2 MG; Start 06/26/18 at 16:30 Docusate Sodium (Colace) 100 mg Q12H PRN PO .CONSTIPATION; Start 06/26/18 at 16 :30 Zolpidem Tartrate (Ambien) 5 mg QHS PRN PO .INSOMNIA; Start 06/26/18 at 16:30 Hydrochlorothiazide (Hydrochlorothiazide) 12.5 mg DAILY@0600 PO Last administered on 06/28/18 06:00; Admin Dose 12.5 MG; Start 06/27/18 at 06:00 Rivaroxaban (Xarelto) 20 mg WITH DINNER PO Last administered on 06/27/18 18:07; Admin Dose 20 MG; Start 06/26/18 at 18:05 Diagnostic Test (Pha) (Accu-Chek) 1 ea 02 XX Last administered on 06/28/18 02:12; Admin Dose 1 EA; Start 06/27/18 at 02:00 Insulin Glargine (Lantus) 14 units DAILY@2000 SC Last administered on 06/27/18 20:42; Admin Dose 14 UNITS; Start 06/26/18 at 20:00 Insulin Aspart (Novolog Insulin Pen) NOVOLOG *MILD* ALGORITHM WITH MEALS BEDTIME SC Last administered on 06/28/18 12:06; Admin Dose 1 UNIT; Start 06/26/18 at 18:05 Vancomycin HCl (Vanco Iv Per Pharmacy) VANCOMYCIN PER PHARMACY PER PROTOCOL XX ; Start 06/26/18 at 16:30 Vancomycin HCl 250 ml @ 125 mls/hr Q12H IVPB Last administered on 06/28/18 05:01; Admin Dose 125 MLS/HR; Start 06/27/18 at 05:00 Ceftriaxone Sodium 50 ml @ 100 mls/hr Q24H IVPB Last administered on 06/27/18at 18:06; Admin Dose 100 MLS/HR; Start 06/26/18 at 17:30 Silver Sulfadiazine (Thermazene 1% 25 Gm) 1 applic TID TOP Last administered on 06/28/18at 12:08; Admin Dose 1 APPLIC; Start 06/26/18 at 21:00 Sodium Hypochlorite (Dakins Diluted ()) 1 applic DAILY TP Last administered on 06/28/18at 07:56; Admin Dose 1 APPLIC; Start 06/27/18 at 09:00 GREGORY BAPTISTE NP June 28, 2018 14:58
--- NOTE | 2018-06-28 16:33 | PN ---
Date/Time of Note Date/Time of Note DATE: 06/28/18 TIME: 16:26 Assessment/Plan VTE Prophylaxis Risk score (from Nsg)>0 risk: 8 SCD applied (from Ns): No SCD contraindicated: other (PAD) Pharmacological prophylaxis: other (xarelto) Lines/Catheters IV Catheter Type (from Nrs): Peripheral IV Urinary Cath still in place: No Assessment/Plan Hospital Course Assessment and plan 1. Right lower extremity cellulitis - ID consult is following. - Continue antibiotics. - Podiatry consult is following 2. History of thrombosis roughly 1 year ago on right lower extremity. - Patient was placed on Xarelto again. - Vascular surgeon is following. - Follow-up with recommendations 3. Diabetes. - Continue on insulin regimen. 4. History of homelessness. - director of social work is following. - Patient reports that he wants to go back to his car after being discharged. - Continues supportive care. Disposition and plan. Continue wound care. Continue antibiotics. Plan for follow-up at wound care center upon discharge. Will consult with catalytic case operator for discharge planning. Discussed plan of care with Dr. Robles Result Diagram: 06/27/18 0609 06/28/18 0405 Results 24hrs Laboratory Tests Test 06/27/18 16:57 06/27/18 20:39 06/28/18 02:15 06/28/18 04:05 Bedside Glucose 100 234 H 168 Blood Urea Nitrogen 23 H Creatinine 1.15 Vancomycin Level 12.1 Trough Test 06/28/18 07:50 06/28/18 12:03 Bedside Glucose 129 158 Subjective 24 Hr Interval Summary Free Text/Dictation still reports pain on RLE Exam/Review of Systems Exam Vitals Vital Signs Date Temp Pulse Resp B/P (MAP) Pulse Ox O2 O2 Flow FiO2 Time Delivery Rate 06/28/18 97.9 52 16 144/84 97 Room Air 14:07 (104) Intake and Output 06/27/18 06/27/18 06/28/18 1515:00 23:00 07:00 IntakeIntake Total 1070 ml 900 ml BalanceBalance 1070 ml 900 ml Constitutional: alert, oriented Psych: nl mood/affect Head: normocephalic Neck: supple, non-tender Respiratory: clear to auscultation Cardiovascular: other (regular rate ) Gastrointestinal: soft, non-tender Musculoskeletal: swelling (BLE, more on RLE ) Skin: other (ulceration RLE with dressing in place ) Results Results 24hrs Laboratory Tests Test 06/27/18 16:57 06/27/18 20:39 06/28/18 02:15 06/28/18 04:05 Bedside Glucose 100 234 H 168 Blood Urea Nitrogen 23 H Creatinine 1.15 Vancomycin Level 12.1 Trough Test 06/28/18 07:50 06/28/18 12:03 Bedside Glucose 129 158 Medications Medication Current Medications IV Flush (NS 3 ml) 3 ml PER PROTOCOL IV ; Start 06/26/18 at 16:30 Ondansetron HCl (Zofran Inj) 4 mg Q6H PRN IV NAUSEA/VOMITING; Start 06/26/18 at 16:30 Acetaminophen (Tylenol Tab) 650 mg Q6H PRN PO .PAIN 1-3 OR TEMP; Start 06/26/18 at 16:30 Acetaminophen/ Hydrocodone Bitart ([place] (5/325)) 1 tab Q6H PRN PO .MOD PAIN 4- 6; Start 06/26/18 at 16:30 Morphine Sulfate (morphine) 2 mg Q4H PRN IV .SEVERE PAIN 7-10 Last administered on 06/28/18at 13:12; Admin Dose 2 MG; Start 06/26/18 at 16:30 Docusate Sodium (Colace) 100 mg Q12H PRN PO .CONSTIPATION; Start 06/26/18 at 16:30 Zolpidem Tartrate (Ambien) 5 mg QHS PRN PO .INSOMNIA; Start 06/26/18 at 16:30 Hydrochlorothiazide (Hydrochlorothiazide) 12.5 mg DAILY@0600 PO Last administered on 06/28/18at 06:00; Admin Dose 12.5 MG; Start 06/27/18 at 06:00 Rivaroxaban (Xarelto) 20 mg WITH DINNER PO Last administered on 06/27/18at 18:07; Admin Dose 20 MG; Start 06/26/18 at 18:05 Diagnostic Test (Pha) (Accu-Chek) 1 ea 02 XX Last administered on 06/28/18at 02:12; Admin Dose 1 EA; Start 06/27/18 at 02:00 Insulin Glargine (Lantus) 14 units DAILY@2000 SC Last administered on 06/27/18at 20:42; Admin Dose 14 UNITS; Start 06/26/18 at 20:00 Insulin Aspart (Novolog Insulin Pen) NOVOLOG *MILD* ALGORITHM WITH MEALS BEDTIME SC Last administered on 06/28/18at 12:06; Admin Dose 1 UNIT; Start 06/26/18 at 18:05 Vancomycin HCl (Vanco Iv Per Pharmacy) VANCOMYCIN PER PHARMACY PER PROTOCOL XX ; Start 06/26/18 at 16:30 Vancomycin HCl 250 ml @ 125 mls/hr Q12H IVPB Last administered on 06/28/18at 05:01; Admin Dose 125 MLS/HR; Start 06/27/18 at 05:00 Ceftriaxone Sodium 50 ml @ 100 mls/hr Q24H IVPB Last administered on 06/27/18at 18:06; Admin Dose 100 MLS/HR; Start 06/26/18 at 17:30 Silver Sulfadiazine (Thermazene 1% 25 Gm) 1 applic TID TOP Last administered on 06/28/18at 12:08; Admin Dose 1 APPLIC; Start 06/26/18 at 21:00 Sodium Hypochlorite (Dakins Diluted (/40)) 1 applic DAILY TP Last administered on 06/28/18at 07:56; Admin Dose 1 APPLIC; Start 06/27/18 at 09:00 ESTELA ESCOTO NP June 28, 2018 16:33
[2018-06-28] MEDS: CEFTRIAXONE 1 GM/50 ML (PMX) 50 ML IVPB SCH (17:37)
[2018-06-28] MEDS: RIVAROXABAN 20 MG TABLET PO SCH (17:37)
[2018-06-28] MEDS: INSULIN GLARGINE [LANTus] (100 UNITS/ML) SYG SC SCH (19:59)
[2018-06-28 20:00] VITALS: BP 125/79; PULSE 55; RESP 18
[2018-06-29 02:00] VITALS: BP 111/60; PULSE 68; RESP 18
[2018-06-29] MEDS: ACCU-CHEK XX SCH (02:00)
[2018-06-29] MEDS: VANCOMYCIN 1 GM 250 ML IVPB SCH ×2 (05:30→17:24)
[2018-06-29] MEDS: HYDROCHLOROTHIAZIDE 12.5 MG CAP PO SCH (05:37)
[2018-06-29] MEDS: morphine 2 MG INJ IV PRN ×3 (05:37→21:40)
[2018-06-29 05:42] VITALS: BP 132/75; PULSE 65
[2018-06-29 07:35] VITALS: BP 126/75; PULSE 56; RESP 16
[2018-06-29] MEDS: INSULIN ASPART [NOVOLOG] 3 ML PEN SC SCH ×4 (08:00→21:00)
[2018-06-29] MEDS: SILVER SULFADIAZINE 1% 25 GM CR TOP SCH ×3 (08:56→21:44)
[2018-06-29] MEDS: DAKINS 0.0125%(1/40) 473 ML SOLUTION TP SCH (08:56)
--- NOTE | 2018-06-29 14:06 | CONS ---
Assessment/Plan Assessment/Plan Hospital Course (Demo Recall) ID PROGRESS NOTE CURRENT ABX: DAY # 4=>Ceftriaxone --> Change to Ertapenem today + Vanco IV 06/29/18 1055 06/29/18 1055 24H INTERVAL SUMMARY * A/A/O -- good historian, no fevers, VSS, NAD, reports improvement in RLEXT edema * We discussed PO ABX -- He failed PO Keflex as Enterobacter develops resistance to ALL CEPHALOSPORINS despite "In vitro" sensitivity -- "In-Vivo" will not work against Enterobacter * He can have either Cipro or Levaquin PO for Enterobacter IMAGING * 06/26/18 CXR: IMPRESSION: 1. No congestive heart failure. 2. Vague increased density at the lung bases may all be due to atelectasis and scarring. Basilar infiltrates felt to be less likely cannot be excluded. * 06/26/18 R-ankle/foot XR: Generalized soft tissue swelling. No bone lesions or evidence of fracture. Moderate osteoarthritis of the ankle. * 06/26/18 RLEXT US: Possibly chronic deep venous thrombus involving the right femoral vein and right popliteal vein. MICRO/OTHER * 06/26/18 (-)MRSA Nares * 06/26/18 Wound Cx WOUND CULTURE Final Organism 1 ENTEROBACTER CLOACAE QUANTITY SCANT GROWTH Organism 2 COAGULASE NEGATIVE STAPH QUANTITY 1+ Organism 3 CORYNEBACTERIUM SPECIES QUANTITY 3+ RE: CORYNEBACTERIUM SPECIE Clinical susceptibiltiy testing standard for this organism have not been established. However, this organism has demonstrated in vitro growth inhibition to the following chemotherapeutic agents listed as susceptible. E CLOACAE E CLOACAE COAG NEG M.I.C. RX M.I.C. RX M.I.C. RX --------- --- --------- --- --------- --- CEFAZOLIN R CEFEPIME <=1 S CEFOTAXIME R CIPROFLOXACIN <=0.25 S 2 I CLINDAMYCIN >=8 R DOXYCYCLINE S ERYTHROMYCIN >=8 R GENTAMICIN <=1 S LEVOFLOXACIN <=0.12 S 2 I MEROPENEM 0.047 S OXACILLIN >=4 R PENICILLIN-G >=0.5 R RIFAMPIN <=0.5 S VANCOMYCIN <=0.5 S TOBRAMYCIN <=1 S TRIMETHOPRIM/SULFAMETHOXAZOLE <=20 S <=10 S PIPERACILLIN/TAZOBACTAM >=128 R CORYN SPS Zone Size RX --------- --- * AMPICILLIN S * AMPICILLIN/SULBACTAM S * CEFAZOLIN S * CEFOTAXIME S * CEFUROXIME S * CIPROFLOXACIN R * CLINDAMYCIN R * ERYTHROMYCIN R * PENICILLIN S * VANCOMYCIN S PHYSICAL EXAMINATION: GENERAL: VSS, NAD, HEENT: AT, NC, NECK: WNL CHEST: Equal chest rise bilaterally without dyspnea on observation ABD: Soft, ND EXTREMITIES: Warm, dry SKIN: No rash, no diaphoresis ID ASSESSMENT 62 yo M admit with: SIRS w/ESR 32, CRP 1.5 R lower extremity cellulitis Right lower extremity venous ulceration Right lower extremity DVT R lower extremity lymphedema DM2 with peripheral neuropathy HTN (?)MRSA Nares ABX ALLERGIES: NKDA INVASIVES: PIV CURRENT ABX: DAY # 4=Ceftriaxone --> Change to Ertapenem today + Vanco IV ID RECOMMENDATIONS/PLAN: 1. Organism 1 ENTEROBACTER CLOACAE develops resistance immediately to Cephalosporins which are not recommended - hence, will change to Ertapenem. 2. Continue IV ABX while in house. 3. When cleared for DC home - may DC home of the following ABX * Levaquin 500mg po daily x 14 days = PO ABX of choice for Enterobacter [place] * Doxycycline 100mg po daily x 14 days = Will cover staph + possibly will cover opportunistic corynebacterium * NOTE: Doxy is costly -- he says his insurance should pay; however if it doesn't a reasonable alternative to Doxy is Bactrim DS 1 tab po BID x 14 days . Consultation Date/Type/Reason Admit Date/Time June 26, 2018 at 10:23 Initial Consult Date 06/26/18 Date/Time of Note DATE: 06/29/18 TIME: 14:05 Exam/Review of Systems Exam Vitals Vital Signs Date Temp Pulse Resp B/P (MAP) Pulse Ox O2 O2 Flow FiO2 Time Delivery Rate 06/29/18 97.7 56 16 126/75 97 Room Air 07:35 (92) Intake and Output 06/28/18 06/28/18 06/29/18 1414:59 22:59 06:59 IntakeIntake Total 910 ml 600 ml BalanceBalance 910 ml 600 ml Results Result Diagram: 06/29/18 1055 06/29/18 1055 Results 24hrs Laboratory Tests Test 06/28/18 17:35 06/28/18 19:56 06/28/18 21:12 06/29/18 08:24 Bedside Glucose 129 199 141 116 Test 06/29/18 10:55 06/29/18 12:09 White Blood Count 6.1 Red Blood Count 4.57 L Hemoglobin 13.0 L Hematocrit 39.6 L Mean Corpuscular 86.7 Volume Mean Corpuscular 28.4 L Hemoglobin Mean Corpuscular 32.8 Hemoglobin Concent Red Cell 13.3 Distribution Width Platelet Count 204 Mean Platelet Volume 9.7 Immature 1.200 H Granulocytes % Neutrophils % 57.9 Lymphocytes % 28.2 Monocytes % 8.6 Eosinophils % 2.8 Basophils % 1.3 Nucleated Red Blood 0.0 Cells % Immature 0.070 H Granulocytes # Neutrophils # 3.5 Lymphocytes # 1.7 Monocytes # 0.5 Eosinophils # 0.2 Basophils # 0.1 Nucleated Red Blood 0.0 Cells # Sodium Level 141 Potassium Level 3.9 Chloride Level 105 Carbon Dioxide Level 28 Anion Gap 8 Blood Urea Nitrogen 24 H Creatinine 1.16 Est Glomerular > 60 Filtrat Rate mL/min Glucose Level 138 Calcium Level 9.7 Bedside Glucose 128 Medications Medication Current Medications IV Flush (NS 3 ml) 3 ml PER PROTOCOL IV ; Start 06/26/18 at 16:30 Ondansetron HCl (Zofran Inj) 4 mg Q6H PRN IV NAUSEA/VOMITING; Start 06/26/18 at 16:30 Acetaminophen (Tylenol Tab) 650 mg Q6H PRN PO .PAIN 1-3 OR TEMP; Start 06/26/18 at 16:30 Acetaminophen/ Hydrocodone Bitart ([place] (5/325)) 1 tab Q6H PRN PO .MOD PAIN 4- 6; Start 06/26/18 at 16:30 Morphine Sulfate (morphine) 2 mg Q4H PRN IV .SEVERE PAIN 7-10 Last administered on 06/29/18 05:37; Admin Dose 2 MG; Start 06/26/18 at 16:30 Docusate Sodium (Colace) 100 mg Q12H PRN PO .CONSTIPATION; Start 06/26/18 at 16:30 Zolpidem Tartrate (Ambien) 5 mg QHS PRN PO .INSOMNIA; Start 06/26/18 at 16:30 Hydrochlorothiazide (Hydrochlorothiazide) 12.5 mg DAILY@0600 PO Last administered on 06/29/18 05:37; Admin Dose 12.5 MG; Start 06/27/18 at 06:00 Rivaroxaban (Xarelto) 20 mg WITH DINNER PO Last administered on 06/28/18 17:37; Admin Dose 20 MG; Start 06/26/18 at 18:05 Diagnostic Test (Pha) (Accu-Chek) 1 ea 02 XX Last administered on 06/28/18 02:12; Admin Dose 1 EA; Start 06/27/18 at 02:00 Insulin Glargine (Lantus) 14 units DAILY@2000 SC Last administered on 06/28/18 19:59; Admin Dose 14 UNITS; Start 06/26/18 at 20:00 Insulin Aspart (Novolog Insulin Pen) NOVOLOG *MILD* ALGORITHM WITH MEALS BEDTI ME SC Last administered on 06/28/18 12:06; Admin Dose 1 UNIT; Start 06/26/18 at 18:05 Vancomycin HCl (Vanco Iv Per Pharmacy) VANCOMYCIN PER PHARMACY PER PROTOCOL XX ; Start 06/26/18 at 16:30 Vancomycin HCl 250 ml @ 125 mls/hr Q12H IVPB Last administered on 06/29/18 05:30; Admin Dose 125 MLS/HR; Start 06/27/18 at 05:00 Ceftriaxone Sodium 50 ml @ 100 mls/hr Q24H IVPB Last administered on 06/28/18 17:37; Admin Dose 100 MLS/HR; Start 06/26/18 at 17:30 Silver Sulfadiazine (Thermazene 1% 25 Gm) 1 applic TID TOP Last administered on 06/29/18 12:11; Admin Dose 1 APPLIC; Start 06/26/18 at 21:00 Sodium Hypochlorite (Dakins Diluted ()) 1 applic DAILY TP Last administered on 06/29/18at 08:56; Admin Dose 1 APPLIC; Start 06/27/18 at 09:00 VINICIUS IBRAHIM NP June 29, 2018 14:06
[2018-06-29 14:15] VITALS: BP 134/79; PULSE 57; RESP 16
[2018-06-29] MEDS ORDERED: ERTAPENEM SODIUM 0.5 GM in SOD CHLORIDE 0.9% 100 ML IVPB SCH (16:00)
[2018-06-29] MEDS: ERTAPENEM SODIUM 1 GM in SOD CHLORIDE 0.9% 100 ML IVPB SCH (16:02)
--- NOTE | 2018-06-29 16:38 | PN ---
Date/Time of Note Date/Time of Note DATE: 06/29/18 TIME: 16:34 Assessment/Plan VTE Prophylaxis Risk score (from [facility])>0 risk: 7 SCD applied (from [facility]): No SCD contraindicated: other (wound lower extremity) Pharmacological prophylaxis: rivaroxaban Lines/Catheters IV Catheter Type (from [facility]): Peripheral IV Urinary Cath still in place: No Assessment/Plan Hospital Course Assessment and plan 1. Right lower extremity cellulitis - ID consult is following. - culture showing: Organism 1 ENTEROBACTER CLOACAE QUANTITY SCANT GROWTH Organism 2 COAGULASE NEGATIVE STAPH QUANTITY 1+ Organism 3 CORYNEBACTERIUM SPECIES QUANTITY 3+ - Continue antibiotics. - Podiatry consult is following 2. History of thrombosis roughly 1 year ago on right lower extremity. - Patient was placed on Xarelto again. - Vascular surgeon is following. - Follow-up with recommendations 3. Diabetes. - Continue on insulin regimen. 4. History of homelessness. - social science teacher is following. -Patient would like to reconsider possible alf options. Will follow up social science teacher - Continues supportive care. Disposition and plan. Continue ABX regimen. Will follow up social science teacher and lining caser for d/c planning. Will need appropriate resources prior to d/c Discussed plan of care with Dr. Robles Result Diagram: 06/29/18 1055 06/29/18 1055 Results 24hrs Laboratory Tests Test 06/28/18 17:35 06/28/18 19:56 06/28/18 21:12 06/29/18 08:24 Bedside Glucose 129 199 141 116 Test 06/29/18 10:55 06/29/18 12:09 White Blood Count 6.1 Red Blood Count 4.57 L Hemoglobin 13.0 L Hematocrit 39.6 L Mean Corpuscular 86.7 Volume Mean Corpuscular 28.4 L Hemoglobin Mean Corpuscular 32.8 Hemoglobin Concent Red Cell 13.3 Distribution Width Platelet Count 204 Mean Platelet Volume 9.7 Immature 1.200 H Granulocytes % Neutrophils % 57.9 Lymphocytes % 28.2 Monocytes % 8.6 Eosinophils % 2.8 Basophils % 1.3 Nucleated Red Blood 0.0 Cells % Immature 0.070 H Granulocytes # Neutrophils # 3.5 Lymphocytes # 1.7 Monocytes # 0.5 Eosinophils # 0.2 Basophils # 0.1 Nucleated Red Blood 0.0 Cells # Sodium Level 141 Potassium Level 3.9 Chloride Level 105 Carbon Dioxide Level 28 Anion Gap 8 Blood Urea Nitrogen 24 H Creatinine 1.16 Est Glomerular > 60 Filtrat Rate mL/min Glucose Level 138 Calcium Level 9.7 Bedside Glucose 128 Subjective 24 Hr Interval Summary Free Text/Dictation no s/s of distress. comfortable at present . Exam/Review of Systems Exam Vitals Vital Signs Date Temp Pulse Resp B/P (MAP) Pulse Ox O2 O2 Flow FiO2 Time Delivery Rate 06/29/18 97.5 57 16 134/79 96 Room Air 14:15 (97) Intake and Output 06/28/18 06/28/18 06/29/18 1515:00 23:00 07:00 IntakeIntake Total 910 ml 600 ml BalanceBalance 910 ml 600 ml Exam Constitutional: alert, oriented Psych: nl mood/affect Head: normocephalic Neck: supple, non-tender Respiratory: clear to auscultation Cardiovascular: other (regular rate ) Gastrointestinal: soft, non-tender Musculoskeletal: swelling (BLE, more on RLE ) Skin: other (ulceration RLE with dressing in place ) Results Results 24hrs Laboratory Tests Test 06/28/18 17:35 06/28/18 19:56 06/28/18 21:12 06/29/18 08:24 Bedside Glucose 129 199 141 116 Test 06/29/18 10:55 06/29/18 12:09 White Blood Count 6.1 Red Blood Count 4.57 L Hemoglobin 13.0 L Hematocrit 39.6 L Mean Corpuscular 86.7 Volume Mean Corpuscular 28.4 L Hemoglobin Mean Corpuscular 32.8 Hemoglobin Concent Red Cell 13.3 Distribution Width Platelet Count 204 Mean Platelet Volume 9.7 Immature 1.200 H Granulocytes % Neutrophils % 57.9 Lymphocytes % 28.2 Monocytes % 8.6 Eosinophils % 2.8 Basophils % 1.3 Nucleated Red Blood 0.0 Cells % Immature 0.070 H Granulocytes # Neutrophils # 3.5 Lymphocytes # 1.7 Monocytes # 0.5 Eosinophils # 0.2 Basophils # 0.1 Nucleated Red Blood 0.0 Cells # Sodium Level 141 Potassium Level 3.9 Chloride Level 105 Carbon Dioxide Level 28 Anion Gap 8 Blood Urea Nitrogen 24 H Creatinine 1.16 Est Glomerular > 60 Filtrat Rate mL/min Glucose Level 138 Calcium Level 9.7 Bedside Glucose 128 Medications Medication Current Medications IV Flush (NS 3 ml) 3 ml PER PROTOCOL IV ; Start 06/26/18 at 16:30 Ondansetron HCl (Zofran Inj) 4 mg Q6H PRN IV NAUSEA/VOMITING; Start 06/26/18 at 16:30 Acetaminophen (Tylenol Tab) 650 mg Q6H PRN PO .PAIN 1-3 OR TEMP; Start 06/26/18 at 16:30 Acetaminophen/ Hydrocodone Bitart ([place] (5/325)) 1 tab Q6H PRN PO .MOD PAIN 4- 6; Start 06/26/18 at 16:30 Morphine Sulfate (morphine) 2 mg Q4H PRN IV .SEVERE PAIN 7-10 Last administered on 06/29/18at 16:15; Admin Dose 2 MG; Start 06/26/18 at 16:30 Docusate Sodium (Colace) 100 mg Q12H PRN PO .CONSTIPATION; Start 06/26/18 at 16:30 Zolpidem Tartrate (Ambien) 5 mg QHS PRN PO .INSOMNIA; Start 06/26/18 at 16:30 Hydrochlorothiazide (Hydrochlorothiazide) 12.5 mg DAILY@0600 PO Last administ ered on 06/29/18at 05:37; Admin Dose 12.5 MG; Start 06/27/18 at 06:00 Rivaroxaban (Xarelto) 20 mg WITH DINNER PO Last administered on 06/28/18 17:37; Admin Dose 20 MG; Start 06/26/18 at 18:05 Diagnostic Test (Pha) (Accu-Chek) 1 ea 02 XX Last administered on 06/28/18at 02:12; Admin Dose 1 EA; Start 06/27/18 at 02:00 Insulin Glargine (Lantus) 14 units DAILY@2000 SC Last administered on 06/28/18at 19:59; Admin Dose 14 UNITS; Start 06/26/18 at 20:00 Insulin Aspart (Novolog Insulin Pen) NOVOLOG *MILD* ALGORITHM WITH MEALS BEDTIME SC Last administered on 06/28/18 12:06; Admin Dose 1 UNIT; Start 06/26/18 at 18:05 Vancomycin HCl (Vanco Iv Per Pharmacy) VANCOMYCIN PER PHARMACY PER PROTOCOL XX ; Start 06/26/18 at 16:30 Vancomycin HCl 250 ml @ 125 mls/hr Q12H IVPB Last administered on 06/29/18 05:30; Admin Dose 125 MLS/HR; Start 06/27/18 at 05:00 Silver Sulfadiazine (Thermazene 1% 25 Gm) 1 applic TID TOP Last administered on 06/29/18 12:11; Admin Dose 1 APPLIC; Start 06/26/18 at 21:00 Sodium Hypochlorite (Dakins Diluted (40)) 1 applic DAILY TP Last administered on 06/29/18 08:56; Admin Dose 1 APPLIC; Start 06/27/18 at 09:00 Ertapenem 1 gm/ Sodium Chloride 100 ml @ 200 mls/hr Q24H IVPB Last administered on 06/29/18 16:02; Admin Dose 200 MLS/HR; Start 06/29/18 at 16:00 ESTELA ESCOTO NP June 29, 2018 16:38
[2018-06-29] MEDS: RIVAROXABAN 20 MG TABLET PO SCH (17:25)
[2018-06-29 19:58] VITALS: BP 122/79; PULSE 58; RESP 17
[2018-06-29] MEDS: INSULIN GLARGINE [LANTus] (100 UNITS/ML) SYG SC SCH (20:22)
[2018-06-30] MEDS: ACCU-CHEK XX SCH (02:00)
[2018-06-30 02:18] VITALS: BP 126/77; PULSE 58; RESP 18
[2018-06-30] MEDS: HYDROCHLOROTHIAZIDE 12.5 MG CAP PO SCH (05:25)
[2018-06-30] MEDS: VANCOMYCIN 1 GM 250 ML IVPB SCH ×2 (05:54→17:29)
[2018-06-30] MEDS: morphine 2 MG INJ IV PRN ×2 (06:58→18:26)
[2018-06-30 07:34] VITALS: BP 129/74; PULSE 54; RESP 16
[2018-06-30] MEDS: INSULIN ASPART [NOVOLOG] 3 ML PEN SC SCH ×4 (08:00→20:47)
[2018-06-30] MEDS: SILVER SULFADIAZINE 1% 25 GM CR TOP SCH ×3 (09:00→20:52)
[2018-06-30] MEDS: DAKINS 0.0125%(1/40) 473 ML SOLUTION TP SCH (09:00)
--- NOTE | 2018-06-30 14:00 | CONS ---
Assessment/Plan Assessment/Plan Assessment/Plan (Daily) R lower extremity cellulitis Right lower extremity venous ulceration Right lower extremity DVT R lower extremity lymphedema DM2 with peripheral neuropathy Plan Wound cultures showing e.cloacae, staph coag neg, corynebacterium. Emphasized to patient to continue compression therapy and elevation of the right lower extremity. Instructions on dressing changes provided. Continue with IV abx per ID recommendations. Patient can likely continue with PO abx for 7-10 days. Positive findings of chronic deep venous thrombus involving the right femoral vein and right popliteal vein. Continue with anticoagulation. Patient may weight bear as tolerated. Consultation Date/Type/Reason Admit Date/Time June 26, 2018 at 10:23 Initial Consult Date 06/26/18 Date/Time of Note DATE: 06/30/18 TIME: 13:59 24 HR Interval Summary Free Text/Dictation No acute events overnight. Exam/Review of Systems Exam Vitals Vital Signs Date Temp Pulse Resp B/P (MAP) Pulse Ox O2 O2 Flow FiO2 Time Delivery Rate 06/30/18 97.8 54 16 129/74 95 Room Air 07:34 (92) Intake and Output 06/29/18 06/29/18 06/30/18 1515:00 23:00 07:00 IntakeIntake Total 910 ml 750 ml 400 ml BalanceBalance 910 ml 750 ml 400 ml Exam DP/PT and popliteal pulses palpable Absent protective sensations. Cobblestoning noted to the right lower extremity Diffuse erythema to the right lower extremity Right lateral leg ulceration partial thickness in nature 5 x 1.3 x 0.1cm granular no probing to bone, no purulence noted, surrounding erythema 2+ pitting edema Pain on palpation to the right lower extremity calf Muscle strength 5/5 in all compartments of the foot Results Result Diagram: 06/29/18 1055 06/29/18 1055 Results 24hrs Laboratory Tests Test 06/29/18 17:23 06/29/18 20:20 06/29/18 21:38 06/30/18 08:05 Bedside Glucose 122 180 141 117 Test 06/30/18 12:24 Bedside Glucose 122 Medications Medication Current Medications IV Flush (NS 3 ml) 3 ml PER PROTOCOL IV ; Start 06/26/18 at 16:30 Ondansetron HCl (Zofran Inj) 4 mg Q6H PRN IV NAUSEA/VOMITING; Start 06/26/18 at 16:30 Acetaminophen (Tylenol Tab) 650 mg Q6H PRN PO .PAIN 1-3 OR TEMP; Start 06/26/18 at 16:30 Acetaminophen/ Hydrocodone Bitart ([place] (5/325)) 1 tab Q6H PRN PO .MOD PAIN 4-6; Start 06/26/18 at 16:30 Morphine Sulfate (morphine) 2 mg Q4H PRN IV .SEVERE PAIN 7-10 Last administered on 06/30/18at 06:58; Admin Dose 2 MG; Start 06/26/18 at 16:30 Docusate Sodium (Colace) 100 mg Q12H PRN PO .CONSTIPATION; Start 06/26/18 at 16:30 Zolpidem Tartrate (Ambien) 5 mg QHS PRN PO .INSOMNIA; Start 06/26/18 at 16:30 Hydrochlorothiazide (Hydrochlorothiazide) 12.5 mg DAILY@0600 PO Last administered on 06/30/18at 05:25; Admin Dose 12.5 MG; Start 06/27/18 at 06:00 Rivaroxaban (Xarelto) 20 mg WITH DINNER PO Last administered on 06/29/18at 17:25; Admin Dose 20 MG; Start 06/26/18 at 18:05 Diagnostic Test (Pha) (Accu-Chek) 1 ea 02 XX Last administered on 06/28/18at 02:12; Admin Dose 1 EA; Start 06/27/18 at 02:00 Insulin Glargine (Lantus) 14 units DAILY@2000 SC Last administered on 06/29/18at 20:22; Admin Dose 14 UNITS; Start 06/26/18 at 20:00 Insulin Aspart (Novolog Insulin Pen) NOVOLOG *MILD* ALGORITHM WITH MEALS BEDTIME SC Last administered on 06/28/18at 12:06; Admin Dose 1 UNIT; Start 06/26/18 at 18:05 Vancomycin HCl (Vanco Iv Per Pharmacy) VANCOMYCIN PER PHARMACY PER PROTOCOL XX ; Start 06/26/18 at 16:30 Vancomycin HCl 250 ml @ 125 mls/hr Q12H IVPB Last administered on 06/30/18at 05:54; Admin Dose 125 MLS/HR; Start 06/27/18 at 05:00 Silver Sulfadiazine (Thermazene 1% 25 Gm) 1 applic TID TOP Last administered on 06/29/18 21:44; Admin Dose 1 APPLIC; Start 06/26/18 at 21:00 Sodium Hypochlorite (Dakins Diluted ()) 1 applic DAILY TP Last administered on 06/29/18at 08:56; Admin Dose 1 APPLIC; Start 06/27/18 at 09:00 Ertapenem 1 gm/ Sodium Chloride 100 ml @ 200 mls/hr Q24H IVPB Last administered on 06/29/18 16:02; Admin Dose 200 MLS/HR; Start 06/29/18 at 16:00 KELLI TREADWELL DPM June 30, 2018 14:00
[2018-06-30 14:25] VITALS: BP 115/70; PULSE 55; RESP 16
--- NOTE | 2018-06-30 15:04 | PN ---
Date/Time of Note Date/Time of Note DATE: 06/30/18 TIME: 15:00 Assessment/Plan VTE Prophylaxis Risk score (from [facility])>0 risk: 7 SCD applied (from [facility]): No SCD contraindicated: other (wound rle ) Pharmacological prophylaxis: rivaroxaban Lines/Catheters [facility] (from [facility] Peripheral IV Urinary Cath still in place: No Assessment/Plan Hospital Course Assessment and plan 1. Right lower extremity cellulitis - ID consult is following. - culture showing: Organism 1 ENTEROBACTER CLOACAE QUANTITY SCANT GROWTH Organism 2 COAGULASE NEGATIVE STAPH QUANTITY 1+ Organism 3 CORYNEBACTERIUM SPECIES QUANTITY 3+ - Continue antibiotics. - Podiatry consult is following - continue wound care per podiatry 2. History of thrombosis roughly 1 year ago on right lower extremity. - Patient was placed on Xarelto again. - Vascular surgeon is following. - Follow-up with recommendations 3. Diabetes. - Continue on insulin regimen. 4. History of homelessness. - social service assistant is following. -Patient would like to reconsider possible nursing home options. Will follow up social service assistant - Continues supportive care. Disposition and plan. Continue ABX regimen. Spoke with patient after he stated he spoke with social service assistant. Patient states he wants to find nursing home near [place]. Will f/u supervisor case loading. Discussed plan of care with Dr. Robles Result Diagram: 06/29/18 1055 06/29/18 1055 Results 24hrs Laboratory Tests Test 06/29/18 17:23 06/29/18 20:20 06/29/18 21:38 06/30/18 08:05 Bedside Glucose 122 180 141 117 Test 06/30/18 12:24 Bedside Glucose 122 Subjective 24 Hr Interval Summary Free Text/Dictation no s/s of distress. comfortable at present Exam/Review of Systems Exam Vitals Vital Signs Date Temp Pulse Resp B/P (MAP) Pulse Ox O2 O2 Flow FiO2 Time Delivery Rate 06/30/18 97.8 55 16 115/70 95 Room Air 14:25 (85) Intake and Output 06/29/18 06/29/18 06/30/18 1515:00 23:00 07:00 IntakeIntake Total 910 ml 750 ml 400 ml BalanceBalance 910 ml 750 ml 400 ml Exam Constitutional: alert, oriented Psych: nl mood/affect Head: normocephalic Neck: supple, non-tender Respiratory: clear to auscultation Cardiovascular: other (regular rate ) Gastrointestinal: soft, non-tender Musculoskeletal: swelling (BLE, more on RLE ) Skin: other (ulceration RLE with dressing in place ) Results Results 24hrs Laboratory Tests Test 06/29/18 17:23 06/29/18 20:20 06/29/18 21:38 06/30/18 08:05 Bedside Glucose 122 180 141 117 Test 06/30/18 12:24 Bedside Glucose 122 Medications Medication Current Medications IV Flush (NS 3 ml) 3 ml PER PROTOCOL IV ; Start 06/26/18 at 16:30 Ondansetron HCl (Zofran Inj) 4 mg Q6H PRN IV NAUSEA/VOMITING; Start 06/26/18 at 16:30 Acetaminophen (Tylenol Tab) 650 mg Q6H PRN PO .PAIN 1-3 OR TEMP; Start 06/26/18 at 16:30 Acetaminophen/ Hydrocodone Bitart ([place] (5/325)) 1 tab Q6H PRN PO .MOD PAIN 4- 6; Start 06/26/18 at 16:30 Morphine Sulfate (morphine) 2 mg Q4H PRN IV .SEVERE PAIN 7-10 Last administered on 06/30/18at 06:58; Admin Dose 2 MG; Start 06/26/18 at 16:30 Docusate Sodium (Colace) 100 mg Q12H PRN PO .CONSTIPATION; Start 06/26/18 at 16:30 Zolpidem Tartrate (Ambien) 5 mg QHS PRN PO .INSOMNIA; Start 06/26/18 at 16:30 Hydrochlorothiazide (Hydrochlorothiazide) 12.5 mg DAILY@0600 PO Last administered on 06/30/18at 05:25; Admin Dose 12.5 MG; Start 06/27/18 at 06:00 Rivaroxaban (Xarelto) 20 mg WITH DINNER PO Last administered on 06/29/18at 17:25; Admin Dose 20 MG; Start 06/26/18 at 18:05 Diagnostic Test (Pha) (Accu-Chek) 1 ea 02 XX Last administered on 06/28/18at 02:12; Admin Dose 1 EA; Start 06/27/18 at 02:00 Insulin Glargine (Lantus) 14 units DAILY@2000 SC Last administered on 06/29/18 20:22; Admin Dose 14 UNITS; Start 06/26/18 at 20:00 Insulin Aspart (Novolog Insulin Pen) NOVOLOG *MILD* ALGORITHM WITH MEALS BEDTIME SC Last administered on 06/28/18 12:06; Admin Dose 1 UNIT; Start 06/26/18 at 18:05 Vancomycin HCl (Vanco Iv Per Pharmacy) VANCOMYCIN PER PHARMACY PER PROTOCOL XX ; Start 06/26/18 at 16:30 Vancomycin HCl 250 ml @ 125 mls/hr Q12H IVPB Last administered on 06/30/18 05:54; Admin Dose 125 MLS/HR; Start 06/27/18 at 05:00 Silver Sulfadiazine (Thermazene 1% 25 Gm) 1 applic TID TOP Last administered on 06/29/18 21:44; Admin Dose 1 APPLIC; Start 06/26/18 at 21:00 Sodium Hypochlorite (Dakins Diluted (1/40)) 1 applic DAILY TP Last administered on 06/29/18 08:56; Admin Dose 1 APPLIC; Start 06/27/18 at 09:00 Ertapenem 1 gm/ Sodium Chloride 100 ml @ 200 mls/hr Q24H IVPB Last administered on 06/29/18 16:02; Admin Dose 200 MLS/HR; Start 06/29/18 at 16:00 ESTELA ESCOTO NP June 30, 2018 15:04
[2018-06-30] MEDS: ERTAPENEM SODIUM 1 GM in SOD CHLORIDE 0.9% 100 ML IVPB SCH (15:57)
[2018-06-30] MEDS: RIVAROXABAN 20 MG TABLET PO SCH (17:28)
--- NOTE | 2018-06-30 18:42 | CONS ---
Assessment/Plan Assessment/Plan Hospital Course (Demo Recall) ID PROGRESS NOTE CURRENT ABX: DAY # 4=>Ertapnem + Vanco IV 24H INTERVAL SUMMARY * No fevers, VSS, NAD - doing well, no complaints * We discussed PO ABX -- He failed PO Keflex as Enterobacter develops resistance to ALL CEPHALOSPORINS despite "In vitro" sensitivity -- "In-Vivo" will not work against Enterobacter * He can have either Cipro or Levaquin PO for Enterobacter IMAGING * 06/26/18 CXR: IMPRESSION: 1. No congestive heart failure. 2. Vague increased density at the lung bases may all be due to atelectasis and scarring. Basilar infiltrates felt to be less likely cannot be excluded. * 06/26/18 R-ankle/foot XR: Generalized soft tissue swelling. No bone lesions or evidence of fracture. Moderate osteoarthritis of the ankle. * 06/26/18 RLEXT US: Possibly chronic deep venous thrombus involving the right femoral vein and right popliteal vein. MICRO/OTHER * 06/26/18 (-)MRSA Nares * 06/26/18 Wound Cx WOUND CULTURE Final Organism 1 ENTEROBACTER CLOACAE QUANTITY SCANT GROWTH Organism 2 COAGULASE NEGATIVE STAPH QUANTITY 1+ Organism 3 CORYNEBACTERIUM SPECIES QUANTITY 3+ RE: CORYNEBACTERIUM SPECIE Clinical susceptibiltiy testing standard for this organism have not been established. However, this organism has demonstrated in vitro growth inhibition to the following chemotherapeutic agents listed as susceptible. E CLOACAE E CLOACAE COAG NEG M.I.C. RX M.I.C. RX M.I.C. RX --------- --- --------- --- --------- --- CEFAZOLIN R CEFEPIME <=1 S CEFOTAXIME R CIPROFLOXACIN <=0.25 S 2 I CLINDAMYCIN >=8 R DOXYCYCLINE S ERYTHROMYCIN >=8 R GENTAMICIN <=1 S LEVOFLOXACIN <=0.12 S 2 I MEROPENEM 0.047 S OXACILLIN >=4 R PENICILLIN-G >=0.5 R RIFAMPIN <=0.5 S VANCOMYCIN <=0.5 S TOBRAMYCIN <=1 S TRIMETHOPRIM/SULFAMETHOXAZOLE <=20 S <=10 S PIPERACILLIN/TAZOBACTAM >=128 R CORYN SPS Zone Size RX --------- --- * AMPICILLIN S * AMPICILLIN/SULBACTAM S * CEFAZOLIN S * CEFOTAXIME S * CEFUROXIME S * CIPROFLOXACIN R * CLINDAMYCIN R * ERYTHROMYCIN R * PENICILLIN S * VANCOMYCIN S PHYSICAL EXAMINATION: GENERAL: VSS, NAD, HEENT: AT, NC, NECK: WNL CHEST: Equal chest rise bilaterally without dyspnea on observation ABD: Soft, ND EXTREMITIES: Warm, dry SKIN: No rash, no diaphoresis ID ASSESSMENT 62 yo M admit with: SIRS w/ESR 32, CRP 1.5 R lower extremity cellulitis Right lower extremity venous ulceration Right lower extremity DVT R lower extremity lymphedema DM2 with peripheral neuropathy HTN (?)MRSA Nares ABX ALLERGIES: NKDA INVASIVES: PIV CURRENT ABX: DAY # 4=Ertapnem + Vanco IV ID RECOMMENDATIONS/PLAN: 1. Organism 1 ENTEROBACTER CLOACAE develops resistance immediately to Cephalosporins which are not recommended - hence, will change to Ertapenem. 2. Continue IV ABX while in house. 3. May DC home of the following ABX x14 days = RATIONALE -- He spent 4 days on Ceftriaxone that does not cover Enterobacter & failed Keflex Tx prior * Levaquin 750 mg po daily x 10-14 days = PO ABX of choice for Enterobacter Clo[place]ae * Doxycycline 100mg po daily x 10-14 days = Will cover staph + possibly will cover opportunistic corynebacterium * NOTE: Doxy is costly -- he says his insurance should pay; however if it doesn't a reasonable alternative to Doxy is Bactrim DS 1 tab po BID x 14 days . Consultation Date/Type/Reason Admit Date/Time June 26, 2018 at 10:23 Initial Consult Date 06/26/18 Date/Time of Note DATE: 06/30/18 TIME: 18:39 Exam/Review of Systems Exam Vitals Vital Signs Date Temp Pulse Resp B/P (MAP) Pulse Ox O2 O2 Flow FiO2 Time Delivery Rate 06/30/18 97.8 55 16 115/70 95 Room Air 14:25 (85) Intake and Output 06/29/18 06/29/18 06/30/18 1515:00 23:00 07:00 IntakeIntake Total 910 ml 750 ml 400 ml BalanceBalance 910 ml 750 ml 400 ml Results Result Diagram: 06/29/18 1055 06/29/18 1055 Results 24hrs Laboratory Tests Test 06/29/18 20:20 06/29/18 21:38 06/30/18 08:05 06/30/18 12:24 Bedside Glucose 180 141 117 122 Test 06/30/18 17:28 Bedside Glucose 124 Medications Medication Current Medications IV Flush (NS 3 ml) 3 ml PER PROTOCOL IV ; Start 06/26/18 at 16:30 Ondansetron HCl (Zofran Inj) 4 mg Q6H PRN IV NAUSEA/VOMITING; Start 06/26/18 at 16:30 Acetaminophen (Tylenol Tab) 650 mg Q6H PRN PO .PAIN 1-3 OR TEMP; Start 06/26/18 at 16:30 Acetaminophen/ Hydrocodone Bitart ([place] (5/325)) 1 tab Q6H PRN PO .MOD PAIN 4- 6; Start 06/26/18 at 16:30 Morphine Sulfate (morphine) 2 mg Q4H PRN IV .SEVERE PAIN 7-10 Last administered on 06/30/18at 18:26; Admin Dose 2 MG; Start 06/26/18 at 16:30 Docusate Sodium (Colace) 100 mg Q12H PRN PO .CONSTIPATION; Start 06/26/18 at 16:30 Zolpidem Tartrate (Ambien) 5 mg QHS PRN PO .INSOMNIA; Start 06/26/18 at 16:30 Hydrochlorothiazide (Hydrochlorothiazide) 12.5 mg DAILY@0600 PO Last administered on 06/30/18at 05:25; Admin Dose 12.5 MG; Start 06/27/18 at 06:00 Rivaroxaban (Xarelto) 20 mg WITH DINNER PO Last administered on 06/30/18at 17:28; Admin Dose 20 MG; Start 06/26/18 at 18:05 Diagnostic Test (Pha) (Accu-Chek) 1 ea 02 XX Last administered on 06/28/18at 02:12; Admin Dose 1 EA; Start 06/27/18 at 02:00 Insulin Glargine (Lantus) 14 units DAILY@2000 SC Last administered on 06/29/18 20:22; Admin Dose 14 UNITS; Start 06/26/18 at 20:00 Insulin Aspart (Novolog Insulin Pen) NOVOLOG *MILD* ALGORITHM WITH MEALS BEDTIME SC Last administered on 06/28/18 12:06; Admin Dose 1 UNIT; Start 06/26/18 at 18:05 Vancomycin HCl (Vanco Iv Per Pharmacy) VANCOMYCIN PER PHARMACY PER PROTOCOL XX ; Start 06/26/18 at 16:30 Vancomycin HCl 250 ml @ 125 mls/hr Q12H IVPB Last administered on 06/30/18 17:29; Admin Dose 125 MLS/HR; Start 06/27/18 at 05:00 Silver Sulfadiazine (Thermazene 1% 25 Gm) 1 applic TID TOP Last administered on 06/29/18 21:44; Admin Dose 1 APPLIC; Start 06/26/18 at 21:00 Sodium Hypochlorite (Dakins Diluted ()) 1 applic DAILY TP Last administered on 06/29/18 08:56; Admin Dose 1 APPLIC; Start 06/27/18 at 09:00 Ertapenem 1 gm/ Sodium Chloride 100 ml @ 200 mls/hr Q24H IVPB Last administered on 06/30/18 15:57; Admin Dose 200 MLS/HR; Start 06/29/18 at 16:00 VINICIUS IBRAHIM NP June 30, 2018 18:42
[2018-06-30 20:00] VITALS: BP 124/80; PULSE 61; RESP 18
[2018-06-30] MEDS: INSULIN GLARGINE [LANTus] (100 UNITS/ML) SYG SC SCH (20:46)
[2018-07-01] MEDS: ACCU-CHEK XX SCH (01:58)
[2018-07-01 02:00] VITALS: BP 127/69; PULSE 61; RESP 19
[2018-07-01] MEDS: VANCOMYCIN 1 GM 250 ML IVPB SCH ×2 (05:04→17:25)
[2018-07-01] MEDS: HYDROCHLOROTHIAZIDE 12.5 MG CAP PO SCH (06:02)
[2018-07-01 08:00] VITALS: BP 136/87; PULSE 57; RESP 17
[2018-07-01] MEDS: INSULIN ASPART [NOVOLOG] 3 ML PEN SC SCH ×4 (08:00→20:44)
[2018-07-01] MEDS: morphine 2 MG INJ IV PRN ×3 (08:25→20:37)
[2018-07-01] MEDS: SILVER SULFADIAZINE 1% 25 GM CR TOP SCH ×3 (13:00→20:44)
[2018-07-01] MEDS: DAKINS 0.0125%(1/40) 473 ML SOLUTION TP SCH (13:42)
[2018-07-01 14:00] VITALS: BP 137/90; PULSE 72; RESP 18
--- NOTE | 2018-07-01 15:02 | PN ---
Date/Time of Note Date/Time of Note DATE: 07/01/18 TIME: 15:01 Assessment/Plan VTE Prophylaxis Risk score (from Ns)>0 risk: 7 SCD applied (from Ns): No SCD contraindicated: other Pharmacological prophylaxis: rivaroxaban Lines/Catheters IV [facility] Type [facility]from [facility]): Peripheral IV Urinary Cath still in place: No Assessment/Plan Hospital Course SUBJECTIVE: Lying in bed comfortably. No acute distress. OBJECTIVE: Vital signs-see below PHYSICAL EXAM: Constitutional: Adequately built,not in acute distress. HEENT: Head atraumatic and normocephalic. Eyes: Extraocular muscles intact. Anicteric sclerae. Pupils equal bilaterally, reactive to light. NECK: Supple without lymph node. CHEST: Clear and good breath sounds equally. No wheezing. No rhonchi. HEART: S1, S2. Regular rate and rhythm. ABDOMEN: Soft/non tender with no rebound tenderness. Bowel sounds were present. EXTREMITIES:RLE wound wrapped with [place] bandage. No oozing noted outside. With chronic venous stasis changes/hyperpigmentation bilateral lower extremities. No cyanosis, clubbing or edema. NEUROLOGIC: Alert and oriented x3. No focal deficit. No sensory deficit. PSYCHOSOCIAL: No signs of depression. INTEGUMENTARY: No open wounds. ASSESSMENT AND PLAN:62 yo homeless M w/DMII,htn, chronic DVT of right lower extremity, here with right lower extremity ulceration started off as blisters. Right lower extremity chronic venous stasis ulcers. -Appreciate podiatry follow-up. Continue wound care as directed. -Needs total 2 weeks antibiotic preferably p.o. doxycycline/Levaquin per ID History of DVT diagnosed 1 year ago RLE -As per vascular, recommended to continue anticoagulation in light of severe venous stasis. DMII -Basal/bolus insulin -Recommend metformin on discharge. Homelessness -toll transmission worker following Obesity with BMI 32.6. -Weight reduction advised DVT prophylaxis: On Xarelto. Disposition: Overall, patient is medically stable for discharge with continuation of Xarelto, p.o. doxycycline and Levaquin for a total 2 weeks duration. Patient to follow-up with [facility] wound clinic regularly. Patient is also homeless for his mental health social worker is finding appropriate [facility] placement. Patient was seen in collaboration with Dr. Doran. Result Diagram: 07/01/1847 07/01/18546 Results 24hrs Laboratory Tests Test 06/30/18 17:28 06/30/18 20:43 07/01/18 01:57 07/01/18 05:47 Bedside Glucose 124 253 H 138 White Blood Count 7.9 # Red Blood Count 5.07 Hemoglobin 14.5 Hematocrit 43.9 Mean Corpuscular 86.6 Volume Mean Corpuscular 28.6 L Hemoglobin Mean Corpuscular 33.0 Hemoglobin Concent Red Cell 13.2 Distribution Width Platelet Count 237 Mean Platelet Volume 9.7 Immature 1.400 H Granulocytes % Neutrophils % 59.2 Lymphocytes % 27.3 Monocytes % 8.6 Eosinophils % 2.5 Basophils % 1.0 Nucleated Red Blood 0.0 Cells % Immature 0.110 H Granulocytes # Neutrophils # 4.7 Lymphocytes # 2.2 Monocytes # 0.7 Eosinophils # 0.2 Basophils # 0.1 Nucleated Red Blood 0.0 Cells # Sodium Level 141 Potassium Level 4.3 Chloride Level 108 Carbon Dioxide Level 25 Anion Gap 8 Blood Urea Nitrogen 34 H Creatinine 1.19 Est Glomerular > 60 Filtrat Rate mL/min Glucose Level 133 Calcium Level 9.9 Test 07/01/18 08:18 07/01/18 12:16 Bedside Glucose 126 111 Exam/Review of Systems Exam Vitals Vital Signs Date Temp Pulse Resp B/P (MAP) Pulse Ox O2 O2 Flow FiO2 Time Delivery Rate 07/01/18 97.7 57 17 136/87 95 Room Air 08:00 (103) Intake and Output 06/30/18 06/30/18 07/01/18 1515:00 23:00 07:00 IntakeIntake Total 700 ml 750 ml 480 ml BalanceBalance 700 ml 750 ml 480 ml Results Results 24hrs Laboratory Tests Test 06/30/18 17:28 06/30/18 20:43 07/01/18 01:57 07/01/18 05:47 Bedside Glucose 124 253 H 138 White Blood Count 7.9 # Red Blood Count 5.07 Hemoglobin 14.5 Hematocrit 43.9 Mean Corpuscular 86.6 Volume Mean Corpuscular 28.6 L Hemoglobin Mean Corpuscular 33.0 Hemoglobin Concent Red Cell 13.2 Distribution Width Platelet Count 237 Mean Platelet Volume 9.7 Immature 1.400 H Granulocytes % Neutrophils % 59.2 Lymphocytes % 27.3 Monocytes % 8.6 Eosinophils % 2.5 Basophils % 1.0 Nucleated Red Blood 0.0 Cells % Immature 0.110 H Granulocytes # Neutrophils # 4.7 Lymphocytes # 2.2 Monocytes # 0.7 Eosinophils # 0.2 Basophils # 0.1 Nucleated Red Blood 0.0 Cells # Sodium Level 141 Potassium Level 4.3 Chloride Level 108 Carbon Dioxide Level 25 Anion Gap 8 Blood Urea Nitrogen 34 H Creatinine 1.19 Est Glomerular > 60 Filtrat Rate mL/min Glucose Level 133 Calcium Level 9.9 Test 07/01/18 08:18 07/01/18 12:16 Bedside Glucose 126 111 Medications Medication Current Medications IV Flush (NS 3 ml) 3 ml PER PROTOCOL IV ; Start 06/26/18 at 16:30 Ondansetron HCl (Zofran Inj) 4 mg Q6H PRN IV NAUSEA/VOMITING; Start 06/26/18 at 16:30 Acetaminophen (Tylenol Tab) 650 mg Q6H PRN PO .PAIN 1-3 OR TEMP; Start 06/26/18 at 16:30 Acetaminophen/ Hydrocodone Bitart ([place] (5/325)) 1 tab Q6H PRN PO .MOD PAIN 4- 6; Start 06/26/18 at 16:30 Morphine Sulfate (morphine) 2 mg Q4H PRN IV .SEVERE PAIN 7-10 Last administered on 07/01/18at 13:47; Admin Dose 2 MG; Start 06/26/18 at 16:30 Docusate Sodium (Colace) 100 mg Q12H PRN PO .CONSTIPATION; Start 06/26/18 at 16:30 Zolpidem Tartrate (Ambien) 5 mg QHS PRN PO .INSOMNIA; Start 06/26/18 at 16:30 Hydrochlorothiazide (Hydrochlorothiazide) 12.5 mg DAILY@0600 PO Last admini stered on 07/01/18at 06:02; Admin Dose 12.5 MG; Start 06/27/18 at 06:00 Rivaroxaban (Xarelto) 20 mg WITH DINNER PO Last administered on 06/30/18at 17:28; Admin Dose 20 MG; Start 06/26/18 at 18:05 Diagnostic Test (Pha) (Accu-Chek) 1 ea 02 XX Last administered on 07/01/18at 01:58; Admin Dose 1 EA; Start 06/27/18 at 02:00 Insulin Glargine (Lantus) 14 units DAILY@2000 SC Last administered on 06/30/18at 20:46; Admin Dose 14 UNITS; Start 06/26/18 at 20:00 Insulin Aspart (Novolog Insulin Pen) NOVOLOG *MILD* ALGORITHM WITH MEALS BEDTIME SC Last administered on 06/30/18at 20:47; Admin Dose 2 UNIT; Start 06/26/18 at 18:05 Vancomycin HCl (Vanco Iv Per Pharmacy) VANCOMYCIN PER PHARMACY PER PROTOCOL XX ; Start 06/26/18 at 16:30 Vancomycin HCl 250 ml @ 125 mls/hr Q12H IVPB Last administered on 07/01/18 05:04; Admin Dose 125 MLS/HR; Start 06/27/18 at 05:00 Silver Sulfadiazine (Thermazene 1% 25 Gm) 1 applic TID TOP Last administered on 07/01/18at 13:42; Admin Dose 1 APPLIC; Start 06/26/18 at 21:00 Sodium Hypochlorite (Dakins Diluted (40)) 1 applic DAILY TP Last administered on 07/01/18 13:42; Admin Dose 1 APPLIC; Start 06/27/18 at 09:00 Ertapenem 1 gm/ Sodium Chloride 100 ml @ 200 mls/hr Q24H IVPB Last administered on 06/30/18at 15:57; Admin Dose 200 MLS/HR; Start 06/29/18 at 16:00 Miscellaneous Information (*Rx Drug Level Order Reminder*) VANCO TROUGH @ 1,600 1600 ONCE XX ; Start 07/02/18 at 16:00; Stop 07/02/18 at 16:01 MARIALUISA JIANG NP July 01, 2018 15:02
[2018-07-01] MEDS: ERTAPENEM SODIUM 1 GM in SOD CHLORIDE 0.9% 100 ML IVPB SCH (15:54)
--- NOTE | 2018-07-01 16:51 | CONS ---
Assessment/Plan Assessment/Plan Hospital Course (Demo Recall) ID PROGRESS NOTE CURRENT ABX: DAY # 5=>Ertapnem + Vanco IV 24H INTERVAL SUMMARY * CLINICALLY MUCH IMPROVED == CONSIDER DC HOME -- CM is looking for housing as he is homeless * No fevers, VSS, NAD - doing well, no complaints * We discussed PO ABX YESTERDAY -- He failed PO Keflex as Enterobacter develops resistance to ALL CEPHALOSPORINS despite "In vitro" sensitivity -- "In-Vivo" will not work against Enterobacter * He can have either Cipro or Levaquin PO for Enterobacter IMAGING * 06/26/18 CXR: IMPRESSION: 1. No congestive heart failure. 2. Vague increased density at the lung bases may all be due to atelectasis and scarring. Basilar infiltrates felt to be less likely cannot be excluded. * 06/26/18 R-ankle/foot XR: Generalized soft tissue swelling. No bone lesions or evidence of fracture. Moderate osteoarthritis of the ankle. * 06/26/18 RLEXT US: Possibly chronic deep venous thrombus involving the right femoral vein and right popliteal vein. MICRO/OTHER * 06/26/18 (-)MRSA Nares * 06/26/18 Wound Cx WOUND CULTURE Final Organism 1 ENTEROBACTER CLOACAE QUANTITY SCANT GROWTH Organism 2 COAGULASE NEGATIVE STAPH QUANTITY 1+ Organism 3 CORYNEBACTERIUM SPECIES QUANTITY 3+ RE: CORYNEBACTERIUM SPECIE Clinical susceptibiltiy testing standard for this organism have not been established. However, this organism has demonstrated in vitro growth inhibition to the following chemotherapeutic agents listed as susceptible. E CLOACAE E CLOACAE COAG NEG M.I.C. RX M.I.C. RX M.I.C. RX --------- --- --------- --- --------- --- CEFAZOLIN R CEFEPIME <=1 S CEFOTAXIME R CIPROFLOXACIN <=0.25 S 2 I CLINDAMYCIN >=8 R DOXYCYCLINE S ERYTHROMYCIN >=8 R GENTAMICIN <=1 S LEVOFLOXACIN <=0.12 S 2 I MEROPENEM 0.047 S OXACILLIN >=4 R PENICILLIN-G >=0.5 R RIFAMPIN <=0.5 S VANCOMYCIN <=0.5 S TOBRAMYCIN <=1 S TRIMETHOPRIM/SULFAMETHOXAZOLE <=20 S <=10 S PIPERACILLIN/TAZOBACTAM >=128 R CORYN SPS Zone Size RX --------- --- * AMPICILLIN S * AMPICILLIN/SULBACTAM S * CEFAZOLIN S * CEFOTAXIME S * CEFUROXIME S * CIPROFLOXACIN R * CLINDAMYCIN R * ERYTHROMYCIN R * PENICILLIN S * VANCOMYCIN S PHYSICAL EXAMINATION: GENERAL: VSS, NAD, HEENT: AT, NC, NECK: WNL CHEST: Equal chest rise bilaterally without dyspnea on observation ABD: Soft, ND EXTREMITIES: Warm, dry SKIN: No rash, no diaphoresis ID ASSESSMENT 62 yo M admit with: SIRS w/ESR 32, CRP 1.5 R lower extremity cellulitis Right lower extremity venous ulceration Right lower extremity DVT R lower extremity lymphedema DM2 with peripheral neuropathy HTN (?)MRSA Nares ABX ALLERGIES: NKDA INVASIVES: PIV CURRENT ABX: DAY # 5=Ertapnem + Vanco IV ID RECOMMENDATIONS/PLAN: 1. Organism 1 ENTEROBACTER CLOACAE develops resistance immediately to Cephalosp orins which are not recommended - hence, changed to Ertapenem. 2. Continue IV ABX while in house -- CM is looking for housing as he is homeless 3. May DC home of the following ABX x14 days = RATIONALE -- He spent 4 days on Ceftriaxone that does not cover Enterobacter & failed Keflex Tx prior * Levaquin 750 mg po daily x 10-14 days = PO ABX of choice for Enterobacter [place] * Doxycycline 100mg po daily x 10-14 days = Will cover staph + possibly will cover opportunistic corynebacterium * NOTE: Doxy is costly -- he says his insurance should pay; however if it doesn't a reasonable alternative to Doxy is Bactrim DS 1 tab po BID x 14 days . Consultation Date/Type/Reason Admit Date/Time June 26, 2018 at 10:23 Initial Consult Date 06/26/18 Date/Time of Note DATE: 07/01/18 TIME: 16:49 Exam/Review of Systems Exam Vitals Vital Signs Date Temp Pulse Resp B/P (MAP) Pulse Ox O2 O2 Flow FiO2 Time Delivery Rate 07/01/18 97.8 72 18 137/90 95 Room Air 14:00 (106) Intake and Output 06/30/18 06/30/18 07/01/18 1515:00 23:00 07:00 IntakeIntake Total 700 ml 750 ml 480 ml BalanceBalance 700 ml 750 ml 480 ml Results Result Diagram: 07/01/18 0547 07/01/18 0547 Results 24hrs Laboratory Tests Test 06/30/18 17:28 06/30/18 20:43 07/01/18 01:57 07/01/18 05:47 Bedside Glucose 124 253 H 138 White Blood Count 7.9 # Red Blood Count 5.07 Hemoglobin 14.5 Hematocrit 43.9 Mean Corpuscular 86.6 Volume Mean Corpuscular 28.6 L Hemoglobin Mean Corpuscular 33.0 Hemoglobin Concent Red Cell 13.2 Distribution Width Platelet Count 237 Mean Platelet Volume 9.7 Immature 1.400 H Granulocytes % Neutrophils % 59.2 Lymphocytes % 27.3 Monocytes % 8.6 Eosinophils % 2.5 Basophils % 1.0 Nucleated Red Blood 0.0 Cells % Immature 0.110 H Granulocytes # Neutrophils # 4.7 Lymphocytes # 2.2 Monocytes # 0.7 Eosinophils # 0.2 Basophils # 0.1 Nucleated Red Blood 0.0 Cells # Sodium Level 141 Potassium Level 4.3 Chloride Level 108 Carbon Dioxide Level 25 Anion Gap 8 Blood Urea Nitrogen 34 H Creatinine 1.19 Est Glomerular > 60 Filtrat Rate mL/min Glucose Level 133 Calcium Level 9.9 Test 07/01/18 08:18 07/01/18 12:16 Bedside Glucose 126 111 Medications Medication Current Medications IV Flush (NS 3 ml) 3 ml PER PROTOCOL IV ; Start 06/26/18 at 16:30 Ondansetron HCl (Zofran Inj) 4 mg Q6H PRN IV NAUSEA/VOMITING; Start 06/26/18 at 16:30 Acetaminophen (Tylenol Tab) 650 mg Q6H PRN PO .PAIN 1-3 OR TEMP; Start 06/26/18 at 16:30 Acetaminophen/ Hydrocodone Bitart ([place] (5/325)) 1 tab Q6H PRN PO .MOD PAIN 4- 6; Start 06/26/18 at 16:30 Morphine Sulfate (morphine) 2 mg Q4H PRN IV .SEVERE PAIN 7-10 Last administered on 07/01/18 13:47; Admin Dose 2 MG; Start 06/26/18 at 16:30 Docusate Sodium (Colace) 100 mg Q12H PRN PO .CONSTIPATION; Start 06/26/18 at 16:30 Zolpidem Tartrate (Ambien) 5 mg QHS PRN PO .INSOMNIA; Start 06/26/18 at 16:30 Hydrochlorothiazide (Hydrochlorothiazide) 12.5 mg DAILY@0600 PO Last administered on 07/01/18 06:02; Admin Dose 12.5 MG; Start 06/27/18 at 06:00 Rivaroxaban (Xarelto) 20 mg WITH DINNER PO Last administered on 06/30/18 17:28; Admin Dose 20 MG; Start 06/26/18 at 18:05 Diagnostic Test (Pha) (Accu-Chek) 1 ea 02 XX Last administered on 07/01/18 01:58; Admin Dose 1 EA; Start 06/27/18 at 02:00 Insulin Glargine (Lantus) 14 units DAILY@2000 SC Last administered on 06/30/18 20:46; Admin Dose 14 UNITS; Start 06/26/18 at 20:00 Insulin Aspart (Novolog Insulin Pen) NOVOLOG *MILD* ALGORITHM WITH MEALS BEDTIME SC Last administered on 06/30/18 20:47; Admin Dose 2 UNIT; Start 06/26/18 at 18:05 Vancomycin HCl (Vanco Iv Per Pharmacy) VANCOMYCIN PER PHARMACY PER PROTOCOL XX ; Start 06/26/18 at 16:30 Vancomycin HCl 250 ml @ 125 mls/hr Q12H IVPB Last administered on 07/01/18 05:04; Admin Dose 125 MLS/HR; Start 06/27/18 at 05:00 Silver Sulfadiazine (Thermazene 1% 25 Gm) 1 applic TID TOP Last administered on 07/01/18 13:42; Admin Dose 1 APPLIC; Start 06/26/18 at 21:00 Sodium Hypochlorite (Dakins Diluted (40)) 1 applic DAILY TP Last administered on 07/01/18 13:42; Admin Dose 1 APPLIC; Start 06/27/18 at 09:00 Ertapenem 1 gm/ Sodium Chloride 100 ml @ 200 mls/hr Q24H IVPB Last administered on 07/01/18at 15:54; Admin Dose 200 MLS/HR; Start 06/29/18 at 16:00 Miscellaneous Information (*Rx Drug Level Order Reminder*) VANCO TROUGH @ 1,600 1600 ONCE XX ; Start 07/02/18 at 16:00; Stop 07/02/18 at 16:01 VINICIUS IBRAHIM NP July 01, 2018 16:51
[2018-07-01] MEDS: RIVAROXABAN 20 MG TABLET PO SCH (17:24)
[2018-07-01 20:37] VITALS: BP 129/81; PULSE 59; RESP 16
[2018-07-01] MEDS: INSULIN GLARGINE [LANTus] (100 UNITS/ML) SYG SC SCH (20:44)
[2018-07-02] MEDS: ACCU-CHEK XX SCH (02:00)
[2018-07-02 02:34] VITALS: BP 117/85; PULSE 54; RESP 18
[2018-07-02] MEDS: VANCOMYCIN 1 GM 250 ML IVPB SCH ×2 (04:33→17:00)
[2018-07-02] MEDS: HYDROCHLOROTHIAZIDE 12.5 MG CAP PO SCH (06:02)
[2018-07-02 07:50] VITALS: BP 122/80; PULSE 55; RESP 18
[2018-07-02] MEDS: INSULIN ASPART [NOVOLOG] 3 ML PEN SC SCH ×3 (08:00→17:32)
[2018-07-02] MEDS: SILVER SULFADIAZINE 1% 25 GM CR TOP SCH ×2 (09:00→13:00)
[2018-07-02] MEDS: DAKINS 0.0125%(1/40) 473 ML SOLUTION TP SCH (09:00)
[2018-07-02] MEDS: morphine 2 MG INJ IV PRN (12:46)
[2018-07-02] MEDS ORDERED: LEVO750T25 PO (13:41)
[2018-07-02] MEDS ORDERED: DOXY100T20 PO (13:41)
--- NOTE | 2018-07-02 13:43 | PDOCDIS ---
Discharge Instructions CONDITION [id number] Patient Condition: [id number] Stable HOME CARE INSTRUCTIONS: Patricia Your diet recommendation is: [id number] Carbiohydrate controlled/low-cholesterol diet FOLLOW UP/APPOINTMENTS Follow-up Plan Follow-up with amputation prevention clinic Center for regular wound care. follow up With primary care physician in 1 week MARIALUISA JIANG NP July 02, 2018 13:43
--- NOTE | 2018-07-02 13:52 | DS ---
Date/Time of Note Date/Time of Note DATE: 07/02/18 TIME: 13:51 Discharge Summary Admission/Discharge Info Admit Date/Time June 26, 2018 at 10:23 Discharge Date/Time Discharge Diagnosis Right lower extremity chronic venous stasis ulcers. History of DVT diagnosed 1 year ago RLE DMII Homelessness Obesity with BMI 32.6. Patient Condition: Stable Consults [facility] Course 62 yo homeless M w/DMII,htn, chronic DVT of right lower extremity, here with right lower extremity ulceration started off as blisters. Patient was being followed by [facility] desk. He was continued on anticoagulation in light of history of DVT as well as chronic venous stasis ulcers which are recurrent. Patient was continued on appropriate antimicrobials. His wound culture grew polymicrobial's. Patient did not have any evidence of sepsis. He was continued on basal/bolus insulin for underlying diabetes. Patient was also homeless for which recuperative center was recommended at [place] for which patient was not receptive to it. He decided to get discharged back to his car. Patient is alert oriented, has decision making capacity. He is well aware of his situation. Patient to follow-up with amputation prevention clinic for wound care. Patient was recommended to continue with Levaquin and doxycycline for total 14 days. Approximately 60-minute was spent on coordinating the discharge on this patient. Patient was seen in collaboration with Dr. Doran. Home Meds Active Scripts Doxycycline Hyclate* (Doxycycline Hyclate*) 100 Mg Tablet., 100 MG PO BID, #28 TAB If co-pay for doxycycline is high/insurance does not pay, substitute with Bactrim DS 1 tab twice daily x14 days Prov:MARIALUISA JIANG NP 07/02/18 Levofloxacin* (Levaquin*) 750 Mg Tablet, 750 MG PO DAILY, #14 TAB Prov:MARIALUISA JIANG V. SANITARIAN AIDE 07/02/18 Reported Medications Metformin Hcl* (Metformin Hcl*) 500 Mg Tablet, 500 MG PO WITH BREAKFAST DINNE, #60 TAB 06/26/18 Hydrochlorothiazide* (Hydrochlorothiazide*) 12.5 Mg Tablet, 12.5 MG PO DAILY, #30 TAB 06/26/18 Rivaroxaban* (Xarelto*) 20 Mg Tablet, 20 MG PO WITH DINNER, TAB 06/26/18 Discontinued Reported Medications Cephalexin* (Cephalexin*) 500 Mg Capsule, 500 MG PO BID, #28 CAP 06/26/18 Follow-up Plan Follow-up with amputation prevention clinic Center for regular wound care. follow up With primary care physician in 1 week Primary Care Provider Not On Staff Doctor Pending Labs Laboratory Tests Test 07/01/18 17:27 07/01/18 20:40 07/02/18 05:07 07/02/18 08:07 Bedside 127 150 121 Glucose mg/dL (70-220) mg/dL (70-220) mg/dL (70-220) White Blood 6.8 Count 10^3/ul (4.8-1 0.8) Red Blood 5.02 Count 10^6/ul (4.70- 6.10) Hemoglobin 14.3 g/dl (14.0-18. 0) Hematocrit 43.6 % (42.0-52.0) Mean 86.9 Corpuscular fl (82.0-101.0 Volume ) Mean 28.5 Corpuscular pg (29.0-33.0) Hemoglobin Mean 32.8 Corpuscular g/dl (32.0-37. Hemoglobin Conc 0) ent Red Cell 13.3 Distribution % (11.5-14.5) Width Platelet Count 213 10^3/UL (140-4 15) Mean Platelet 9.7 Volume fl (7.4-10.4) Immature 1.600 Granulocytes % % (0.001-0.429 ) Neutrophils % 52.0 % (39.0-77.0) Lymphocytes % 32.9 % (15.0-51.0) Monocytes % 9.0 % (0.0-11.0) Eosinophils % 3.2 % (0.0-7.0) Basophils % 1.3 % (0.0-2.0) Nucleated Red 0.0 Blood Cells % /100WBC (0.0-0 .0) Immature 0.110 Granulocytes # 10^3/ul (0.0-0 .031) Neutrophils # 3.5 10^3/ul (1.6-7 .5) Lymphocytes # 2.2 10^3/ul (0.8-2 .9) Monocytes # 0.6 10^3/ul (0.3-0 .9) Eosinophils # 0.2 10^3/ul (0.0-0 .5) Basophils # 0.1 10^3/ul (0.0-0 .1) Nucleated Red 0.0 Blood Cells # 10^3/ul (0.0-0 .0) Sodium Level 141 mmol/L (135-14 4) Potassium 4.0 Level mmol/L (3.5-5. 1) Chloride Level 108 mmol/L (97-110 ) Carbon Dioxide 24 Level mmol/L (21-31) Anion Gap 9 (5-13) Blood Urea 33 Nitrogen mg/dl (7-20) Creatinine 1.21 mg/dl (0.61-1. 24) Est Glomerular > 60 Filtrat mL/min (>60) Rate mL/min Glucose Level 128 mg/dl (70-220) Calcium Level 9.4 mg/dl (8.4-10. 2) MARIALUISA JIANG NP July 02, 2018 13:52
[2018-07-02 14:17] VITALS: BP 137/81; PULSE 59; RESP 16
--- NOTE | 2018-07-02 14:21 | CONS ---
Assessment/Plan Assessment/Plan Hospital Course (Demo Recall) Patient is alert feels good denies pain, no fevers overnight Antimicrobials: Vancomycin and Invanz Microbiology: Wound cultures grew Enterobacter and coag negative staph species PHYSICAL EXAMINATION: GENERAL: This is obese, well-developed, elderly man who is alert, in no distress. HEENT: Head atraumatic, normocephalic. Sclerae anicteric. Buccal mucosa pink. NECK: Supple. CHEST: Rise symmetrical. Breath sounds clear. HEART: S1, S2. ABDOMEN: Obese, soft. Bowel tones present. EXTREMITIES: With bilateral lower extremity chronic discoloration below knees. Right lower extremity [place] wrapped Assessment: 1. Right lower extremity acute on chronic cellulitis 2. Bilateral lower extremities chronic venous stasis 3. Diabetes 4. Homelessness Plan: Patient is doing much better, pending discharge on oral levofloxacin and doxycycline. Patient to follow with [facility] outpatient Consultation Date/Type/Reason Admit Date/Time June 26, 2018 at 10:23 Initial Consult Date 06/26/18 Type of Consult id Date/Time of Note DATE: 07/02/18 TIME: 14:19 Exam/Review of Systems Exam Vitals Vital Signs Date Temp Pulse Resp B/P (MAP) Pulse Ox O2 O2 Flow FiO2 Time Delivery Rate 07/02/18 98.4 59 16 137/81 95 Room Air 14:17 (99) Intake and Output 07/01/18 07/01/18 07/02/18 1515:00 23:00 07:00 IntakeIntake Total 1090 ml 520 ml BalanceBalance 1090 ml 520 ml Results Result Diagram: 07/02/18 0507 07/02/18 0507 Results 24hrs Laboratory Tests Test 07/01/18 17:27 07/01/18 20:40 07/02/18 05:07 07/02/18 08:07 Bedside Glucose 127 150 121 White Blood Count 6.8 Red Blood Count 5.02 Hemoglobin 14.3 Hematocrit 43.6 Mean Corpuscular 86.9 Volume Mean Corpuscular 28.5 L Hemoglobin Mean Corpuscular 32.8 Hemoglobin Concent Red Cell 13.3 Distribution Width Platelet Count 213 Mean Platelet Volume 9.7 Immature 1.600 H Granulocytes % Neutrophils % 52.0 Lymphocytes % 32.9 Monocytes % 9.0 Eosinophils % 3.2 Basophils % 1.3 Nucleated Red Blood 0.0 Cells % Immature 0.110 H Granulocytes # Neutrophils # 3.5 Lymphocytes # 2.2 Monocytes # 0.6 Eosinophils # 0.2 Basophils # 0.1 Nucleated Red Blood 0.0 Cells # Sodium Level 141 Potassium Level 4.0 Chloride Level 108 Carbon Dioxide Level 24 Anion Gap 9 Blood Urea Nitrogen 33 H Creatinine 1.21 Est Glomerular > 60 Filtrat Rate mL/min Glucose Level 128 Calcium Level 9.4 Medications Medication Current Medications IV Flush (NS 3 ml) 3 ml PER PROTOCOL IV ; Start 06/26/18 at 16:30 Ondansetron HCl (Zofran Inj) 4 mg Q6H PRN IV NAUSEA/VOMITING; Start 06/26/18 at 16:30 Acetaminophen (Tylenol Tab) 650 mg Q6H PRN PO .PAIN 1-3 OR TEMP; Start 06/26/18 at 16:30 Acetaminophen/ Hydrocodone Bitart ([place] (5/325)) 1 tab Q6H PRN PO .MOD PAIN 4- 6; Start 06/26/18 at 16:30 Morphine Sulfate (morphine) 2 mg Q4H PRN IV .SEVERE PAIN 7-10 Last administered on 07/02/18at 12:46; Admin Dose 2 MG; Start 06/26/18 at 16:30 Docusate Sodium (Colace) 100 mg Q12H PRN PO .CONSTIPATION; Start 06/26/18 at 16:30 Zolpidem Tartrate (Ambien) 5 mg QHS PRN PO .INSOMNIA; Start 06/26/18 at 16:30 Hydrochlorothiazide (Hydrochlorothiazide) 12.5 mg DAILY@0600 PO Last administered on 07/02/18at 06:02; Admin Dose 12.5 MG; Start 06/27/18 at 06:00 Rivaroxaban (Xarelto) 20 mg WITH DINNER PO Last administered on 07/01/18at 17:24; Admin Dose 20 MG; Start 06/26/18 at 18:05 Diagnostic Test (Pha) (Accu-Chek) 1 ea 02 XX Last administered on 07/01/18at 01:58; Admin Dose 1 EA; Start 06/27/18 at 02:00 Insulin Glargine (Lantus) 14 units DAILY@2000 SC Last administered on 07/01/18at 20:44; Admin Dose 14 UNITS; Start 06/26/18 at 20:00 Insulin Aspart (Novolog Insulin Pen) NOVOLOG *MILD* ALGORITHM WITH MEALS BEDTIME SC Last administered on 06/30/18at 20:47; Admin Dose 2 UNIT; Start 06/26/18 at 18:05 Vancomycin HCl (Vanco Iv Per Pharmacy) VANCOMYCIN PER PHARMACY PER PROTOCOL XX ; Start 06/26/18 at 16:30 Vancomycin HCl 250 ml @ 125 mls/hr Q12H IVPB Last administered on 07/02/18at 04:33; Admin Dose 125 MLS/HR; Start 06/27/18 at 05:00 Silver Sulfadiazine (Thermazene 1% 25 Gm) 1 applic TID TOP Last administered on 07/01/18at 20:44; Admin Dose 1 APPLIC; Start 06/26/18 at 21:00 Sodium Hypochlorite (Dakins Diluted ()) 1 applic DAILY TP Last administered on 07/01/18at 13:42; Admin Dose 1 APPLIC; Start 06/27/18 at 09:00 Ertapenem 1 gm/ Sodium Chloride 100 ml @ 200 mls/hr Q24H IVPB Last administered on 07/01/18at 15:54; Admin Dose 200 MLS/HR; Start 06/29/18 at 16:00 Miscellaneous Information (*Rx Drug Level Order Reminder*) VANCO TROUGH @ 1,600 1600 ONCE XX ; Start 07/02/18 at 16:00; Stop 07/02/18 at 16:01 GREGORY BAPTISTE NP July 02, 2018 14:21
[2018-07-02] MEDS: ERTAPENEM SODIUM 1 GM in SOD CHLORIDE 0.9% 100 ML IVPB SCH (15:59)
[2018-07-02] MEDS: RIVAROXABAN 20 MG TABLET PO SCH (17:32)
== END 2018-07-02 18:27 | disposition home or self-care (01) | DRG 300 ==
LOC: E/R 08:13 → PP2 10:23
PROVIDERS: ADMIT Internal Medicine; ATTEND Internal Medicine
DX: I87.2 Venous insufficiency (chronic) (peripheral) (principal); L03.115 Cellulitis of right lower limb; E11.42 Type 2 diabetes mellitus with diabetic polyneuropathy; Z59.0 Homelessness; E66.9 Obesity, unspecified; Z68.32 Body mass index [BMI] 32.0-32.9, adult; I10 Essential (primary) hypertension; I89.0 Lymphedema, not elsewhere classified; Z86.718 Personal history of other venous thrombosis and embolism; Z79.01 Long term (current) use of anticoagulants; Z79.84 Long term (current) use of oral hypoglycemic drugs
CPT/HCPCS: 36415; 71045; 73590; 80048; 80053; 80202; 82565; 82962; 83036; 83690; 83735; 84100; 84145; 84520; 85025; 85610; 85651; 85730; 86140; 87070; 87081; 93971; 96365; 96375; J0696; J1335; J1815; J1885; J2270; J2543; J3370; J7040

== ENCOUNTER 2018-07-20 06:38 | Inpatient (IN) | payer OTHER ==
[~2018-07-20] VITALS: Ht 182.9 cm; Wt 112.3 kg
[~2018-07-20 06:38] MED LIST: DOXY100T20 PO; HYDR12.58 PO; LEVO750T25 PO; METF500T24 PO; RIVA20TA5 PO
[2018-07-20] MEDS ORDERED: morphine 4 MG/ML VIAL IV STA (07:16)
[2018-07-20] MEDS ORDERED: PIPER-TAZO 3.375 GM IV (PMX) 100 ML IVPB STA (07:16)
[2018-07-20] MEDS ORDERED: SOD CHLORIDE 0.9% 500 ML IV STA (07:16)
[2018-07-20] MEDS ORDERED: ONDANSETRON 4 MG INJ IV STA ×2 (07:16→08:00)
[2018-07-20] MEDS ORDERED: VANCOMYCIN 1 GM (PMX) 250 ML IVPB ONE (07:30)
--- NOTE | 2018-07-20 07:39 | ERD ---
ER Documentation Chief Complaint Chief Complaint rt leg swelling /cellulitis HPI This 62-year-old male with a history of [id number] diabetes mellitus on metformin as well as Xarelto which the patient states he has been taking for the past several months due to a deep vein thrombosis in his right lower extremity. The patient indicates that he had been seen and evaluated for a venous stasis ulcer that have become infected on June 28, 2018 roughly 3 weeks ago. The patient had been sent home on Bactrim and Levaquin which she completed several days ago. The patient indicates however that he is been having a tactile fever with shaking and chills. He states that the right lower extremity has become significantly painful, 8 out of 10 in intensity. He does notice that there is been increased weeping and swelling of his right lower extremity. He has been compliant with all of his medications including his Xarelto. When he had been hospital admission he had been seen by the vascular surgeon Dr. Friedman. He is scheduled to follow-up with Dr. Garcia's clinic next week but the patient phoned and spoke with the medical unit secretary indicated he should come to the emergency department to be further evaluated given the worsening of his symptoms. The patient indicates that he unfortunately has recently become homeless and is living in his car making it difficult for him to elevate his leg. He denies any chest pain. He has no shortness of breath at rest or exertion. ROS All systems reviewed and are negative except as per history of present illness. Medications Home Meds Active Scripts Doxycycline Hyclate* (Doxycycline Hyclate*) 100 Mg Tablet., 100 MG PO BID, #28 TAB If co-pay for doxycycline is high/insurance does not pay, substitute with Bactrim DS 1 tab twice daily x14 days Prov:MARIALUISA JIANG NP 07/02/18 Levofloxacin* (Levaquin*) 750 Mg Tablet, 750 MG PO DAILY, #14 TAB Prov:MARIALUISA JIANG NP 07/02/18 Reported Medications Metformin Hcl* (Metformin Hcl*) 500 Mg Tablet, 500 MG PO WITH BREAKFAST DINNE, #60 TAB 06/26/18 Hydrochlorothiazide* (Hydrochlorothiazide*) 12.5 Mg Tablet, 12.5 MG PO DAILY, #30 TAB 06/26/18 Rivaroxaban* (Xarelto*) 20 Mg Tablet, 20 MG PO WITH DINNER, TAB 06/26/18 Allergies Allergies: Coded Allergies: No Known Allergy (Unverified , 06/26/18) PMhx/Soc History of Surgery: Yes (Craniotomy) Anesthesia Reaction: No Hx Neurological Disorder: No Hx Respiratory Disorders: No Hx Cardiac Disorders: Yes (HTN, DVT) Hx Psychiatric Problems: No Hx Miscellaneous Medical Probl: No Hx Alcohol Use: No Hx Substance Use: No Hx Tobacco Use: No Smoking Status: Never smoker Physical Exam Vitals Vital Signs Date Temp Pulse Resp B/P (MAP) Pulse Ox O2 O2 Flow FiO2 Time Delivery Rate 07/20/18 98.2 55 16 144/90 95 Room Air 09:00 (108) 07/20/18 98.4 60 16 138/85 99 Room Air 07:00 (102) 07/20/18 98.1 62 18 141/64 98 06:41 (89) Physical Exam Constitutional:Well-developed. Well-nourished. HEENT:Normocephalic. Atraumatic.Pupils were equal round reactive to light. Moist mucous membranes. Respiratory: Not using accessory muscles of respiration.Lungs were clear to auscultation bilaterally. No rhonchi. No rales. No wheezing. Cardiovascular: Regular rate regular rhythm.No murmurs. No rubs were appreciated.S1, S2 normal. Distal pulses are palpable 2+ bilaterally. Muscle skeletal: Full range of motion of both the upper and lower extremities bilaterally.Normal muscle tone.No assymetrical calf tenderness or swelling. Skin: No petechia, no purpura. Significant erythema edema and hyperpigmentation of the right lower extremity, with weeping ulcers, tenderness. No subcutaneous emphysema pain not out of proportion to physical exam. NEURO: Patient was alert, awake, orientated x3.No facial droop. Gait observed and normal with no ataxia.Speech had regular rate and rhythm. No focal neurologi alessio deficits. Result Diagram: 07/20/18 0734 07/20/18 0734 Results 24 hrs Laboratory Tests Test 07/20/18 07:34 07/20/18 09:03 White Blood Count 5.4 10^3/ul Red Blood Count 4.45 10^6/ul Hemoglobin 12.4 g/dl Hematocrit 38.9 % Mean Corpuscular Volume 87.4 fl Mean Corpuscular Hemoglobin 27.9 pg Mean Corpuscular Hemoglobin Concent 31.9 g/dl Red Cell Distribution Width 13.5 % Platelet Count 176 10^3/UL Mean Platelet Volume 9.1 fl Immature Granulocytes % 1.300 % Neutrophils % 57.2 % Lymphocytes % 27.2 % Monocytes % 10.8 % Eosinophils % 2.8 % Basophils % 0.7 % Nucleated Red Blood Cells % 0.0 /100WBC Immature Granulocytes # 0.070 10^3/ul Neutrophils # 3.1 10^3/ul Lymphocytes # 1.5 10^3/ul Monocytes # 0.6 10^3/ul Eosinophils # 0.2 10^3/ul Basophils # 0.0 10^3/ul Nucleated Red Blood Cells # 0.0 10^3/ul Prothrombin Time 18.9 Sec Prothrombin Time Ratio 1.5 INR International Normalized Ratio 1.57 Activated Partial Thromboplast Time 36.4 Sec Sodium Level 143 mmol/L Potassium Level 4.0 mmol/L Chloride Level 109 mmol/L Carbon Dioxide Level 27 mmol/L Anion Gap 7 Blood Urea Nitrogen 22 mg/dl Creatinine 1.24 mg/dl Est Glomerular Filtrat Rate mL/min 59 mL/min Glucose Level 114 mg/dl Calcium Level 8.8 mg/dl Total Bilirubin 0.4 mg/dl Direct Bilirubin 0.00 mg/dl Indirect Bilirubin 0.4 mg/dl Aspartate Amino Transf (AST/SGOT) 20 IU/L Alanine Aminotransferase (ALT/SGPT) 23 IU/L Alkaline Phosphatase 64 IU/L Troponin I < 0.012 ng/ml Total Protein 7.0 g/dl Albumin 3.8 g/dl Globulin 3.20 g/dl Albumin/Globulin Ratio 1.18 Urine Color YELLOW Urine Clarity CLEAR Urine pH 5.0 Urine Specific [place] 1.015 Urine Ketones NEGATIVE mg/dL Urine Nitrite NEGATIVE mg/dL Urine Bilirubin NEGATIVE mg/dL Urine Urobilinogen NEGATIVE mg/dL Urine Leukocyte Esterase NEGATIVE Ana/ul Urine Microscopic RBC 2 /HPF Urine Microscopic WBC 0 /HPF Urine Hemoglobin 1+ mg/dL Urine Glucose NEGATIVE mg/dL Urine Total Protein NEGATIVE mg/dl Current Medications Medications Dose Sig/Miquel Start Time Status Last (Trade) Ordered Route PRN Stop Time Admin Dose Reason Admin Sodium 500 ml @ Q1H STAT 07/20/18 DC 07/20/18 Chloride 500 mls/hr IV 07:16 07:23 07/20/18 08:15 Morphine 4 mg ONCE STAT 07/20/18 DC 07/20/18 Sulfate IV 07:16 07:22 (morphine) 07/20/18 07:18 Ondansetron 4 mg ONCE STAT 07/20/18 DC 07/20/18 HCl (Zofran IV 07:16 07:22 Inj) 07/20/18 07:18 Piperacillin 100 ml @ ONCE STAT 07/20/18 DC 07/20/18 Sod/ 200 mls/hr IVPB 07:16 07:46 Tazobactam 07/20/18 07:45 Sod Vancomycin 250 ml @ ONCE ONCE 07/20/18 DC 07/20/18 HCl 125 mls/hr IVPB 07:30 08:23 07/20/18 09:29 1 mg ONCE STAT 07/20/18 DC 07/20/18 Hydromorphone IV 08:00 08:23 HCl 07/20/18 08:02 (Dilaudid) Ondansetron 4 mg ONCE STAT 07/20/18 DC 07/20/18 HCl (Zofran IV 08:00 08:23 Inj) 07/20/18 08:02 Ondansetron 4 mg BRIDGE ORDER 07/20/18 HCl (Zofran PRN IV 10:00 Inj) NAUSEA/VOMITI 07/21/18 09:59 NG 650 mg ER BRIDGE 07/20/18 Acetaminophen PRN PO 10:00 (Tylenol .MILD PAIN 07/21/18 09:59 Tab) 1-3 OR TEMP Procedures/MDM The patient presented to the emergency department with a spreading erythematous superficial infection of the skin and subcutaneous tissues. My differential diagnosis included but was not limited to necrotizing fasciitis, lymphangitis, thrombophlebitis, deep vein thrombosis, allergic reaction, neoplasm, gout or abscess. Predisposing factors of the progressive spread of erythema, warmth, pain and tenderness was considered such as lymphedema, tinea pedis, open wounds, prior trauma or surgery, pre-existing skin lesion (furuncle), retained foreign body, injection drug use or vascular or immune compromise. The patient was placed on antibiotics to cover Staphylococcus aureus, including resistant strains such as community-acquired methicillin-resistant S. aureus which included vancomycin and Zosyn. 12 Lead EKG tracing ordered and reviewed by myself showed: Sinus bradycardia 53 bpm and no arrhythmia. ND interval normal. QRS duration normal. No ST segment elevation No ST segment depression. No changes consistent with acute ischemia. I did repeat the venous duplex ultrasounds which was persistent with a deep vein thrombosis. The patient will be admitted to the hospitalist in serious condition I did feel stable to go to the medical surgical floor. Departure Diagnosis: Primary Impression: Venous stasis ulcer Venous stasis ulcer site: other part of lower leg Varicose vein presence: without varicose veins Laterality: right Non-pressure ulcer stage: with fat layer exposed Qualified Codes: I87.2 - Venous insufficiency (chronic) (peripheral); L97.812 - Non-pressure chronic ulcer of other part of right lower leg with fat layer exposed Additional Impressions: Cellulitis Site of cellulitis: extremity Site of cellulitis of extremity: lower extremity Laterality: right Qualified Codes: L03.115 - Cellulitis of right lower limb Deep vein thrombosis DVT location: lower extremity Affected thrombotic vein of extremity: popliteal Chronicity: chronic Laterality: right Qualified Codes: I82.531 - Chronic embolism and thrombosis of right popliteal vein Condition: Serious CHRISSIE PATINO MD Jul 20, 2018 07:39
[2018-07-20] MEDS ORDERED: HYDROmorphONE 1 MG/ML SYG IV STA (08:00)
[2018-07-20] MEDS ORDERED: ACETAMINOPHEN 325 MG TAB PO PRN ×2 (10:00→11:30)
[2018-07-20] MEDS ORDERED: ONDANSETRON 4 MG INJ IV PRN ×2 (10:00→11:30)
--- NOTE | 2018-07-20 11:10 | HP ---
Date/Time of Note Date/Time of Note DATE: 07/20/18 TIME: 11:10 Assessment/Plan VTE Prophylaxis Pharmacological prophylaxis: rivaroxaban Lines/Catheters IV [facility] Type [facility]from [facility] Saline Lock Assessment/Plan Hospital Course 62-year-old male with comorbidities including hypertension, diabetes mellitus type 2, obesity, infected right leg venous stasis ulcer, RLE DVT, and homelessness who came to the emergency room with chief complaint of right lower extremity edema, erythema, and weeping wounds, who will be admitted to inpatient setting for further treatment and evaluation. 1. Infected right lower extremity venous stasis ulcer. Continue antimicrobials including coverage for MRSA. Obtain podiatry and vascular surgery consult. Elevate the right lower extremity while resting. 2. DVT of the right mid to distal superficial femoral artery and popliteal veins. The patient already on Xarelto which will be continued. Vascular surgery consult will be obtained. 3. Diabetes mellitus type 2. Hemoglobin A1c from 06/27/2018 6.6. Continue the patient on metformin. 4. Hypertension. Resume antihypertensives. 5. Obesity. BMI more than 33 kg/m. Advised weight reduction. 6. Normocytic anemia. Most probably anemia of chronic disease. Monitor H&H closely. Plan: The patient will be admitted to inpatient medical surgical floor. The patient will be started on a carbohydrate controlled diet. . The patient will remain a full code. Activities will be as tolerated. The rest of the patient's management will be based on the clinical course, inputs from consultants, and the results of diagnostic studies. Based on the patient's clinical presentation, he most probably requires at least 2 midnights' stay for further management and evaluation of his clinical presentation. The patient was seen in collaboration with Dr. Zendejas. Result Diagram: 07/20/18 0734 07/20/18 0734 Results 24hrs Laboratory Tests Test 07/20/18 07:34 07/20/18 09:03 White Blood Count 5.4 # Red Blood Count 4.45 L Hemoglobin 12.4 L Hematocrit 38.9 L Mean Corpuscular Volume 87.4 Mean Corpuscular Hemoglobin 27.9 L Mean Corpuscular Hemoglobin Concent 31.9 L Red Cell Distribution Width 13.5 Platelet Count 176 Mean Platelet Volume 9.1 Immature Granulocytes % 1.300 H Neutrophils % 57.2 Lymphocytes % 27.2 Monocytes % 10.8 Eosinophils % 2.8 Basophils % 0.7 Nucleated Red Blood Cells % 0.0 Immature Granulocytes # 0.070 H Neutrophils # 3.1 Lymphocytes # 1.5 Monocytes # 0.6 Eosinophils # 0.2 Basophils # 0.0 Nucleated Red Blood Cells # 0.0 Prothrombin Time 18.9 H Prothrombin Time Ratio 1.5 INR International Normalized Ratio 1.57 Activated Partial Thromboplast Time 36.4 H Sodium Level 143 Potassium Level 4.0 Chloride Level 109 Carbon Dioxide Level 27 Anion Gap 7 Blood Urea Nitrogen 22 H Creatinine 1.24 Est Glomerular Filtrat Rate mL/min 59 L Glucose Level 114 Calcium Level 8.8 Total Bilirubin 0.4 Direct Bilirubin 0.00 Indirect Bilirubin 0.4 Aspartate Amino Transf (AST/SGOT) 20 Alanine Aminotransferase (ALT/SGPT) 23 Alkaline Phosphatase 64 Troponin I < 0.012 Total Protein 7.0 Albumin 3.8 Globulin 3.20 Albumin/Globulin Ratio 1.18 Urine Color YELLOW Urine Clarity CLEAR Urine pH 5.0 Urine Specific [place] 1.015 Urine Ketones NEGATIVE Urine Nitrite NEGATIVE Urine Bilirubin NEGATIVE Urine Urobilinogen NEGATIVE Urine Leukocyte Esterase NEGATIVE Urine Microscopic RBC 2 Urine Microscopic WBC 0 Urine Hemoglobin 1+ H Urine Glucose NEGATIVE Urine Total Protein NEGATIVE HPI/ROS Admit Date/Time Admit Date/Time Hx of Present Illness This is a 62-year-old male with a past medical history of hypertension, diabetes mellitus type 2, right lower extremity DVT, obesity, and right lower extremity infected venous stasis ulcer. The patient was discharged from [facility] on 07/02/2018 following treatment of infected right lower extremity wound. The patient finished 2 weeks of antimicrobial therapy as outpatient. The patient was supposed to follow-up with the amputation prevention center at [facility]. However, because of insurance reasons he was unable to make a follow-up appointment in a timely fa shion. Meanwhile, the patient started having problems with his right lower extremity including edema, redness, and weeping. Therefore, the patient came to the emergency room. The patient denied any fevers or chills. The patient is homeless and lives in a car. Therefore, he has not been able to keep his leg elevated for the recommended duration. In the emergency room, the patient was afebrile. The patient underwent a bilateral lower extremity venous Doppler study that was showing deep venous thrombosis involving the right mid to distal superficial femoral and popliteal veins. There was no evidence of any DVT involving the left lower extremity. The patient was given a single dose of IV vancomycin and Zosyn in the emergency room. ROS Constitutional: no complaints Eyes: no complaints ENT: no complaints Respiratory: no complaints Cardiovascular: no complaints Gastrointestinal: no complaints Genitourinary: no complaints Musculoskeletal: swelling (Left leg) Skin: skin lesions Neurologic: no complaints Endocrine: no complaints Lymphatic: lymphadema Psychological: no complaints Immunologic: no complaints PMH/Family/Social Past Medical History 1. Hypertension. 2. Diabetes mellitus type 2. 3. Right lower extremity DVT. 4. Obesity. 5. Right lower extremity venous stasis ulcer. Medications Current Medications Ondansetron HCl (Zofran Inj) 4 mg BRIDGE ORDER PRN IV NAUSEA/VOMITING; Start 07/20/18 at 10:00; Stop 07/21/18 at 09:59 Acetaminophen (Tylenol Tab) 650 mg ER BRIDGE PRN PO .MILD PAIN 1-3 OR TEMP; Start 07/20/18 at 10:00; Stop 07/21/18 at 09:59 Coded Allergies: No Known Allergy (Unverified , 07/20/18) Past Surgical History Past Surgical Hx: no surgical history Family History Significant Family History: diabetes Social History Patient is currently homeless and lives in his car. Alcohol Use: none Smoking Status: Never smoker Drug Use: none Exam/Review of Systems Vital Signs Vitals Vital Signs Date Temp Pulse Resp B/P (MAP) Pulse Ox O2 O2 Flow FiO2 Time Delivery Rate 07/20/18 98.8 58 13 132/83 95 Room Air 11:09 (99) Exam Exam General: Obese, 62 year-old male lying in bed in no apparent distress. HEENT: Normocephalic, atraumatic. Eyes: Anicteric sclerae, conjunctivae clear. ENT: Nasal septum midline, oral mucosa moist. Neck: Short and obese. Respiratory: Bilaterally diminished breath sounds. No use of accessory muscles of respiration. No adventitious breath sounds. Cardiovascular: S1, S2 heard. Regular rate and rhythm. Abdomen: Soft, nontender, and nondistended. Bowel sounds positive in all 4 quadrants. Genitourinary: Deferred. Extremities: No cyanosis, no clubbing. Right lower extremity erythema with dry scabs with areas of serous secretion. Right lower extremity edema. Neurologic: Cranial nerves II through XII grossly intact. The patient is awake, alert, and oriented. Additional Comments B/L LE Venous Doppler IMPRESSION: 1. Deep venous thrombosis involving the right mid to distal superficial femoral and popliteal veins. 2. No evidence of deep venous thrombosis involving the left lower extremity. 12-Lead EKG Sinus bradycardia. DILCIA ABREU NP Jul 20, 2018 11:10
[2018-07-20] MEDS ORDERED: NACL 0.9% 3 ML SYG IV SCH (11:30)
[2018-07-20] MEDS ORDERED: HYDROCODONE/APAP (5/325) TAB PO PRN (11:30)
[2018-07-20] MEDS ORDERED: GLUCAGON 1 MG INJ IM PRN (12:00)
[2018-07-20] MEDS ORDERED: DEXTROSE 50% 50 ML SYRINGE IV PRN ×2 (12:00)
[2018-07-20] MEDS ORDERED: GLUCOSE GEL 15 GRAM TUBE BUCCAL PRN (12:00)
[2018-07-20] MEDS ORDERED: GLUCOSE GEL 15 GRAM TUBE PO PRN ×2 (12:00)
[2018-07-20] MEDS ORDERED: VANCOMYCIN IV PER PHARMACY XX SCH (12:30)
[2018-07-20 13:27] VITALS: Ht 182.9 cm; Wt 112.3 kg
[2018-07-20 13:30] VITALS: BP 149/90; PULSE 53; RESP 18
[2018-07-20] MEDS ORDERED: VANCOMYCIN 1 GM 250 ML IVPB ONE (13:30)
[2018-07-20 14:10] VITALS: BP 142/79; PULSE 52; RESP 16
[2018-07-20] MEDS: VANCOMYCIN 1 GM 250 ML IVPB SCH (14:24)
--- NOTE | 2018-07-20 15:02 | CONS ---
DATE OF ADMISSION: 07/20/2018 DATE OF CONSULTATION: 07/20/2018 REASON FOR CONSULTATION: Antibiotic management. HISTORY OF PRESENT ILLNESS: The patient is a 62-year-old male who comes in with right leg swelling a nd cellulitis. His past problems include: 1. Non-insulin dependent diabetes mellitus, on metformin as well as Xarelto. He is taking that for: 2. Deep vein thrombosis of the right lower extremity. He has been seen and evaluated for venous sta sis ulcers that have become infected on 06/28/2018, approximately 3 weeks ago. He was sent home on B actrim and Levaquin, which he completed several days ago. He has been having fevers, tactile fevers, with shaking chills. He has increased weeping and swelling of the right lower extremity. He has be en compliant with all his medications. He was seen by Dr. Friedman in vascular consultation. However, he came to the emergency room because of worsening symptoms. He has recently become homeless, living in his car, making it difficult for him to elevate his legs. Denies any chest pain. He has no shor tness of breath at rest or exertion. PAST MEDICAL HISTORY: Status post craniotomy. The patient has a history of hypertension, DVTs as no daniel. FAMILY HISTORY: Noncontributory. SOCIAL HISTORY: He does not smoke, drink, or abuse drugs. ALLERGIES: NONE TO PENICILLIN, SULFA, OR FOODS. MEDICATIONS: Per chart. REVIEW OF SYSTEMS: Noncontributory. PHYSICAL EXAMINATION: GENERAL: He is a well-developed, well-nourished male who is awake, responsive, in no acute distress. VITAL SIGNS: Stable. He is afebrile. SKIN: Without generalized rash. HEENT: Within normal limits. NECK: Supple. LYMPH NODES: None palpable. CHEST: Decreased breath sounds at the bases. HEART: Without murmur or gallop. ABDOMEN: Soft, nontender, without organosplenomegaly or masses. EXTREMITIES: He has significant erythema and edema and hyperpigmentation of the right lower extremit y with weeping ulcers and tenderness. No subcutaneous emphysema. RECTAL AND GENITAL: Deferred. NEUROLOGIC: No focal neurological abnormality. The patient's white count is 5.4, H and H 12.4 and 38.9, platelet count 176,000. BUN and creatinine 22/1.24. Urine is negative for leukocyte esterase and nitrites. He has 57% neutrophils with a white count of 5.4. The patient was started on vancomycin and Zosyn because of his spreading erythematous infection of his skin and subcutaneous tissues. Predisposing factors include lymphedema, tinea pedi s, open wounds, prior trauma or surgery. The patient was started on, as noted, vancomycin and Zosyn. We will continue him on this regimen. I will dictate my findings to the hospitalist. Dictated By: RHETT SMITH MD, JD/CHRISTIAN Conf#: [id number] DID#: [id number]
[2018-07-20] MEDS: PIPER-TAZO 3.375 GM IV (PMX) 100 ML IVPB SCH (17:19)
[2018-07-20] MEDS: metFORMIN 500 MG TAB PO SCH (17:20)
[2018-07-20] MEDS: RIVAROXABAN 20 MG TABLET PO SCH (17:20)
[2018-07-20] MEDS: INSULIN ASPART [NOVOLOG] 3 ML PEN SC SCH ×2 (17:21→21:00)
[2018-07-20 20:00] VITALS: BP 138/82; PULSE 63; RESP 19
[2018-07-21] MEDS: PIPER-TAZO 3.375 GM IV (PMX) 100 ML IVPB SCH ×3 (00:24→12:56)
[2018-07-21] MEDS: VANCOMYCIN 1 GM 250 ML IVPB SCH ×2 (01:26→16:42)
[2018-07-21 02:00] VITALS: BP 113/62; PULSE 63; RESP 18
[2018-07-21 07:58] VITALS: BP 98/55; PULSE 59; RESP 16
[2018-07-21] MEDS: INSULIN ASPART [NOVOLOG] 3 ML PEN SC SCH ×4 (08:00→20:34)
[2018-07-21] MEDS: metFORMIN 500 MG TAB PO SCH ×2 (08:06→17:47)
[2018-07-21] MEDS: HYDROCHLOROTHIAZIDE 12.5 MG CAP PO SCH (08:07)
[2018-07-21] MEDS ORDERED: ENOXAPARIN 40 MG/0.4 ML SYG SC SCH (09:00)
--- NOTE | 2018-07-21 09:32 | CONS ---
DATE OF ADMISSION: 07/20/2018 DATE OF CONSULTATION: 07/21/2018 REASON FOR CONSULTATION: Right lower extremity cellulitis. HISTORY OF PRESENT ILLNESS: This is a 62-year-old gentleman who is admitted for right lower extremit y cellulitis. The patient with chronic venous insufficiency, prior hospitalization. The patient cur rently lives in his car, currently making it difficult for him to comply with recommendations such as limb elevation. The patient had been on Bactrim and Levaquin, but with persistent fevers and was ad mitted through the ER. PAST MEDICAL HISTORY: Status post craniotomy, hypertension, history of DVTs. FAMILY HISTORY: Noncontributory. SOCIAL HISTORY: Homeless. ALLERGIES: NONE. MEDICATIONS: Include Zosyn and Vancomycin. PHYSICAL EXAMINATION: VITAL SIGNS: Temperature 97.9, pulse 59, respiratory rate 16, blood pressure 98/55, pulse oximetry 9 4. GENERAL: The patient alert, oriented, in no acute distress. Regular respiration. EXTREMITIES: Right lower extremity with swelling, erythema several blisters ranging from 2 to 3 cm i n diameter with serous drainage, no signs of abscess. Lower half of the leg with a crusty appearing skin. 2+ DP, PT pulse. Multiple varicosities, mycotic nails. LABORATORIES: WBC 6.6, hemoglobin 11.5, hematocrit 36.3, platelets 184. Sed rate is 20. Sodium 144 , potassium 4.2, chloride 107, CO2 30, BUN 18, creatinine 1.25, venous ultrasound, deep venous thromb osis involving the right mid to distal superficial femoral and popliteal vein. ASSESSMENT: 1. Right lower extremity venous stasis from a DVT right mid to distal superficial femoral to poplite al veins. 2. Cellulitis. 3. Edema. 4. Pain, right lower extremity. 5. Xerosis. PLAN: Then patient is seen and evaluated. No fluid available for culture. The patient currently on vancomycin and Zosyn seen by infectious disease, topical recommendations and with Dakin's and Lidex. Nursing instructions given, initiate a sequential compression device and MARIA DE JESUS hose. The patient alisson l need long-term compression management. Dictated By: ROBERTO SANDS/CHRISTIAN Conf#: [id number] DID#: [id number] CC: NYA SAHU MD;*EndCC*
--- NOTE | 2018-07-21 10:07 | PN ---
Date/Time of Note Date/Time of Note DATE: 07/21/18 TIME: 10:03 Assessment/Plan VTE Prophylaxis Risk score (from Ns)>0 risk: 4 SCD applied (from Ns): No SCD contraindicated: other Pharmacological prophylaxis: rivaroxaban Lines/Catheters IV Catheter Type (from [facility], [place]): Saline Lock Assessment/Plan Hospital Course SUBJECTIVE: Denies any pain in the RLE. OBJECTIVE: Physical Exam General: Obese, 62 year-old male lying in bed in no apparent distress. HEENT: Normocephalic, atraumatic. Eyes: Anicteric sclerae, conjunctivae clear. ENT: Nasal septum midline, oral mucosa moist. Neck: Short and obese. Respiratory: Bilaterally diminished breath sounds. No use of accessory muscles of respiration. No adventitious breath sounds. Cardiovascular: S1, S2 heard. Regular rate and rhythm. Abdomen: Soft, nontender, and nondistended. Bowel sounds positive in all 4 quadrants. Genitourinary: Deferred. Extremities: No cyanosis, no clubbing. Right lower extremity erythema with dry scabs with areas of serous secretion. Right lower extremity edema. Neurologic: Cranial nerves II through XII grossly intact. The patient is awake, alert, and oriented. Labs & Vitals per chart ASSESSMENT & PLAN 62-year-old male with comorbidities including hypertension, diabetes mellitus type 2, obesity, infected right leg venous stasis ulcer, RLE DVT, and homelessn ess who came to the emergency room with chief complaint of right lower extremity edema, erythema, and weeping wounds, who was/cellulitis admitted to inpatient setting for further treatment and evaluation. 1. Infected right lower extremity venous stasis ulcer/cellulitis. Continue antimicrobials including coverage for MRSA. Podiatry following. Elevate the right lower extremity while resting. 2. DVT of the right mid to distal superficial femoral artery and popliteal veins. The patient already on Xarelto. The patient has history of chronic DVT of the RLE. 3. Diabetes mellitus type 2. Hemoglobin A1c 6.5. Continue the patient on metformin and SSI. 4. Hypertension. Continue antihypertensives. 5. Obesity. BMI more than 33 kg/m. Advised weight reduction. 6. Normocytic anemia. Most probably anemia of chronic disease. Monitor H&H closely. 7. Fluids, electrolytes, and nutrition. Carbohydrate controlled diet. 8. DVT prophylaxis. On factor Xa inhibitors. 9. Plan. Continue local wound care and compression dressings. Continue antimicrobials as per ID. Await clinical improvement. The patient was seen in collaboration with Dr. Zendejas. Result Diagram: 07/21/18 0518 07/21/18 0518 Results 24hrs Laboratory Tests Test 07/20/18 12:36 07/20/18 13:48 07/20/18 17:19 07/20/18 21:11 Erythrocyte 20 Sedimentation Rate Hemoglobin A1c 6.5 H Iron Level 45 Total Iron Binding 313 Capacity Percent Iron 14 L Saturation Ferritin 63.1 C-Reactive Protein 1.6 H B-Type Natriuretic 128 H Peptide Vitamin D 21.0 L 1,25-Dihydroxy Bedside Glucose 129 122 113 Test 07/21/18 05:18 07/21/18 08:04 White Blood Count 6.6 # Red Blood Count 4.03 L Hemoglobin 11.5 L Hematocrit 36.3 L Mean Corpuscular 90.1 Volume Mean Corpuscular 28.5 L Hemoglobin Mean Corpuscular 31.7 L Hemoglobin Concent Red Cell 13.5 Distribution Width Platelet Count 184 Mean Platelet Volume 9.5 Immature 0.800 H Granulocytes % Neutrophils % 59.5 Lymphocytes % 23.2 Monocytes % 13.3 H Eosinophils % 2.7 Basophils % 0.5 Nucleated Red Blood 0.0 Cells % Immature 0.050 H Granulocytes # Neutrophils # 3.9 Lymphocytes # 1.5 Monocytes # 0.9 Eosinophils # 0.2 Basophils # 0.0 Nucleated Red Blood 0.0 Cells # Erythrocyte 20 Sedimentation Rate Sodium Level 144 Potassium Level 4.2 Chloride Level 107 Carbon Dioxide Level 30 Anion Gap 7 Blood Urea Nitrogen 18 Creatinine 1.25 H Est Glomerular 58 L Filtrat Rate mL/min Glucose Level 121 Calcium Level 8.6 Phosphorus Level 4.1 Magnesium Level 2.1 Total Bilirubin 0.3 Direct Bilirubin 0.00 Indirect Bilirubin 0.3 Aspartate Amino 17 Transf (AST/SGOT) Alanine 29 Aminotransferase (AL T/SGPT) Alkaline Phosphatase 53 C-Reactive Protein 1.6 H Total Protein 6.2 Albumin 3.3 Globulin 2.90 Albumin/Globulin 1.13 Ratio Triglycerides Level 280 H Cholesterol Level 166 LDL Cholesterol, 82 Calculated HDL Cholesterol 28 L Cholesterol/HDL 5.9 Ratio Bedside Glucose 122 Exam/Review of Systems Exam Vitals Vital Signs Date Temp Pulse Resp B/P (MAP) Pulse Ox O2 O2 Flow FiO2 Time Delivery Rate 07/21/18 97.9 59 16 98/55 (83) 94 07:58 07/21/18 Room Air 02:00 Intake and Output 07/20/18 07/20/18 07/21/18 1515:00 23:00 07:00 IntakeIntake Total 1290 ml 1310 ml 570 ml BalanceBalance 1290 ml 1310 ml 570 ml Results Results 24hrs Laboratory Tests Test 07/20/18 12:36 07/20/18 13:48 07/20/18 17:19 07/20/18 21:11 Erythrocyte 20 Sedimentation Rate Hemoglobin A1c 6.5 H Iron Level 45 Total Iron Binding 313 Capacity Percent Iron 14 L Saturation Ferritin 63.1 C-Reactive Protein 1.6 H B-Type Natriuretic 128 H Peptide Vitamin D 21.0 L 1,25-Dihydroxy Bedside Glucose 129 122 113 Test 07/21/18 05:18 07/21/18 08:04 White Blood Count 6.6 # Red Blood Count 4.03 L Hemoglobin 11.5 L Hematocrit 36.3 L Mean Corpuscular 90.1 Volume Mean Corpuscular 28.5 L Hemoglobin Mean Corpuscular 31.7 L Hemoglobin Concent Red Cell 13.5 Distribution Width Platelet Count 184 Mean Platelet Volume 9.5 Immature 0.800 H Granulocytes % Neutrophils % 59.5 Lymphocytes % 23.2 Monocytes % 13.3 H Eosinophils % 2.7 Basophils % 0.5 Nucleated Red Blood 0.0 Cells % Immature 0.050 H Granulocytes # Neutrophils # 3.9 Lymphocytes # 1.5 Monocytes # 0.9 Eosinophils # 0.2 Basophils # 0.0 Nucleated Red Blood 0.0 Cells # Erythrocyte 20 Sedimentation Rate Sodium Level 144 Potassium Level 4.2 Chloride Level 107 Carbon Dioxide Level 30 Anion Gap 7 Blood Urea Nitrogen 18 Creatinine 1.25 H Est Glomerular 58 L Filtrat Rate mL/min Glucose Level 121 Calcium Level 8.6 Phosphorus Level 4.1 Magnesium Level 2.1 Total Bilirubin 0.3 Direct Bilirubin 0.00 Indirect Bilirubin 0.3 Aspartate Amino 17 Transf (AST/SGOT) Alanine 29 Aminotransferase (AL T/SGPT) Alkaline Phosphatase 53 C-Reactive Protein 1.6 H Total Protein 6.2 Albumin 3.3 Globulin 2.90 Albumin/Globulin 1.13 Ratio Triglycerides Level 280 H Cholesterol Level 166 LDL Cholesterol, 82 Calculated HDL Cholesterol 28 L Cholesterol/HDL 5.9 Ratio Bedside Glucose 122 Medications Medication Current Medications IV Flush (NS 3 ml) 3 ml PER PROTOCOL IV ; Start 07/20/18 at 11:30 Ondansetron HCl (Zofran Inj) 4 mg Q6H PRN IV NAUSEA/VOMITING; Start 07/20/18 at 11:30 Acetaminophen (Tylenol Tab) 650 mg Q6H PRN PO .PAIN 1-3 OR TEMP; Start 07/20/18 at 11:30 Acetaminophen/ Hydrocodone Bitart ([place] (5/325)) 1 tab Q6H PRN PO .PAIN 4-6; Start 07/20/18 at 11:30 Hydrochlorothiazide (Hydrochlorothiazide) 12.5 mg DAILY PO ; Start 07/21/18 at 09:00 Metformin HCl (Glucophage) 500 mg WITH BREAKFAST DINNE PO Last administered on 07/21/18at 08:06; Admin Dose 500 MG; Start 07/20/18 at 18:00 Rivaroxaban (Xarelto) 20 mg WITH DINNER PO Last administered on 07/20/18at 17:20; Admin Dose 20 MG; Start 07/20/18 at 18:00 Miscellaneous Information 1 ea NOTE XX ; Start 07/20/18 at 12:00 Glucose (Glutose) 15 gm Q15M PRN PO DECREASED GLUCOSE; Start 07/20/18 at 12:00 Glucose (Glutose) 22.5 gm Q15M PRN PO DECREASED GLUCOSE; Start 07/20/18 at 12:00 Dextrose (D50w Syringe) 25 ml Q15M PRN IV DECREASED GLUCOSE; Start 07/20/18 at 12:00 Dextrose (D50w Syringe) 50 ml Q15M PRN IV DECREASED GLUCOSE; Start 07/20/18 at 12:00 Glucagon (Glucagen) 1 mg Q15M PRN IM DECREASED GLUCOSE; Start 07/20/18 at 12:00 Glucose (Glutose) 15 gm Q15M PRN BUCCAL DECREASED GLUCOSE; Start 07/20/18 at 12:00 Piperacillin Sod/ Tazobactam Sod 100 ml @ 200 mls/hr Q6 IVPB Last administered on 07/21/18at 05:25; Admin Dose 200 MLS/HR; Start 07/20/18 at 18:00 Vancomycin HCl (Vanco Iv Per Pharmacy) VANCOMYCIN PER PHARMACY PER PROTOCOL XX ; Start 07/20/18 at 12:30 Insulin Aspart (Novolog Insulin Pen) NOVOLOG *MILD* ALGORITHM WITH MEALS BEDTIME SC ; Start 07/20/18 at 18:00 Vancomycin HCl 250 ml @ 125 mls/hr Q12H IVPB Last administered on 07/21/18at 01:26; Admin Dose 125 MLS/HR; Start 07/20/18 at 14:00 Fluocinonide (Lidex 0.05% Cr) 1 applic BID TOP ; Start 07/21/18 at 09:30 DILCIA ABREU NP Jul 21, 2018 10:06
[2018-07-21] MEDS: morphine 2 MG INJ IV PRN ×2 (11:15→16:41)
[2018-07-21] MEDS: FLUOCINONIDE 0.05% 15 GM CR TOP SCH ×2 (11:19→20:35)
[2018-07-21] MEDS ORDERED: morphine 2 MG INJ IV STA (11:25)
--- NOTE | 2018-07-21 13:18 | CONS ---
Assessment/Plan Assessment/Plan Hospital Course (Demo Recall) Patient is alert looks comfortable denies pain no fevers overnight vital signs stable WBC 6.6 no shift no bands BUN 18 creatinine 1.25 Antimicrobials: Zosyn, vancomycin Microbiology: Wound cultures previous admission grew Enterobacter and coag negative staph species PHYSICAL EXAMINATION: GENERAL: This is obese, well-developed, elderly man who is alert, in no distress. HEENT: Head atraumatic, normocephalic. Sclerae anicteric. Buccal mucosa pink. NECK: Supple. CHEST: Rise symmetrical. Breath sounds clear. HEART: S1, S2. ABDOMEN: Obese, soft. Bowel tones present. EXTREMITIES: Right lower extremity with edema and erythema, patient has a dressing below knee that is clean dry and intact Assessment: 1. Right lower extremity acute on chronic cellulitis 2. Bilateral lower extremities chronic venous stasis 3. Diabetes Plan: Stable, continue present care, change Zosyn to cefepime, management per podiatry Consultation Date/Type/Reason Admit Date/Time Jul 20, 2018 at 10:28 Initial Consult Date Type of Consult id Date/Time of Note DATE: 07/21/18 TIME: 13:16 Exam/Review of Systems Exam Vitals Vital Signs Date Temp Pulse Resp B/P (MAP) Pulse Ox O2 O2 Flow FiO2 Time Delivery Rate 07/21/18 97.9 59 16 98/55 (69) 94 07:58 07/21/18 Room Air 02:00 Intake and Output 07/20/18 07/20/18 07/21/18 1515:00 23:00 07:00 IntakeIntake Total 1290 ml 1310 ml 570 ml BalanceBalance 1290 ml 1310 ml 570 ml Results Result Diagram: 07/21/18 0518 07/21/18 0518 Results 24hrs Laboratory Tests Test 07/20/18 13:48 07/20/18 17:19 07/20/18 21:11 07/21/18 05:18 Bedside Glucose 129 122 113 White Blood Count 6.6 # Red Blood Count 4.03 L Hemoglobin 11.5 L Hematocrit 36.3 L Mean Corpuscular 90.1 Volume Mean Corpuscular 28.5 L Hemoglobin Mean Corpuscular 31.7 L Hemoglobin Concent Red Cell 13.5 Distribution Width Platelet Count 184 Mean Platelet Volume 9.5 Immature 0.800 H Granulocytes % Neutrophils % 59.5 Lymphocytes % 23.2 Monocytes % 13.3 H Eosinophils % 2.7 Basophils % 0.5 Nucleated Red Blood 0.0 Cells % Immature 0.050 H Granulocytes # Neutrophils # 3.9 Lymphocytes # 1.5 Monocytes # 0.9 Eosinophils # 0.2 Basophils # 0.0 Nucleated Red Blood 0.0 Cells # Erythrocyte 20 Sedimentation Rate Sodium Level 144 Potassium Level 4.2 Chloride Level 107 Carbon Dioxide Level 30 Anion Gap 7 Blood Urea Nitrogen 18 Creatinine 1.25 H Est Glomerular 58 L Filtrat Rate mL/min Glucose Level 121 Calcium Level 8.6 Phosphorus Level 4.1 Magnesium Level 2.1 Total Bilirubin 0.3 Direct Bilirubin 0.00 Indirect Bilirubin 0.3 Aspartate Amino 17 Transf (AST/SGOT) Alanine 29 Aminotransferase (AL T/SGPT) Alkaline Phosphatase 53 C-Reactive Protein 1.6 H Total Protein 6.2 Albumin 3.3 Globulin 2.90 Albumin/Globulin 1.13 Ratio Triglycerides Level 280 H Cholesterol Level 166 LDL Cholesterol, 82 Calculated HDL Cholesterol 28 L Cholesterol/HDL 5.9 Ratio Test 07/21/18 08:04 07/21/18 12:37 Bedside Glucose 122 102 Medications Medication Current Medications IV Flush (NS 3 ml) 3 ml PER PROTOCOL IV ; Start 07/20/18 at 11:30 Ondansetron HCl (Zofran Inj) 4 mg Q6H PRN IV NAUSEA/VOMITING; Start 07/20/18 at 11:30 Acetaminophen (Tylenol Tab) 650 mg Q6H PRN PO .PAIN 1-3 OR TEMP; Start 07/20/18 at 11:30 Acetaminophen/ Hydrocodone Bitart ([place] (5/325)) 1 tab Q6H PRN PO .PAIN 4-6; Start 07/20/18 at 11:30 Hydrochlorothiazide (Hydrochlorothiazide) 12.5 mg DAILY PO ; Start 07/21/18 at 09:00 Metformin HCl (Glucophage) 500 mg WITH BREAKFAST DINNE PO Last administered on 07/21/18at 08:06; Admin Dose 500 MG; Start 07/20/18 at 18:00 Rivaroxaban (Xarelto) 20 mg WITH DINNER PO Last administered on 07/20/18at 17:20; Admin Dose 20 MG; Start 07/20/18 at 18:00 Miscellaneous Information 1 ea NOTE XX ; Start 07/20/18 at 12:00 Glucose (Glutose) 15 gm Q15M PRN PO DECREASED GLUCOSE; Start 07/20/18 at 12:00 Glucose (Glutose) 22.5 gm Q15M PRN PO DECREASED GLUCOSE; Start 07/20/18 at 12:00 Dextrose (D50w Syringe) 25 ml Q15M PRN IV DECREASED GLUCOSE; Start 07/20/18 at 12:00 Dextrose (D50w Syringe) 50 ml Q15M PRN IV DECREASED GLUCOSE; Start 07/20/18 at 12:00 Glucagon (Glucagen) 1 mg Q15M PRN IM DECREASED GLUCOSE; Start 07/20/18 at 12:00 Glucose (Glutose) 15 gm Q15M PRN BUCCAL DECREASED GLUCOSE; Start 07/20/18 at 12:00 Piperacillin Sod/ Tazobactam Sod 100 ml @ 200 mls/hr Q6 IVPB Last administered on 07/21/18at 12:56; Admin Dose 200 MLS/HR; Start 07/20/18 at 18:00 Vancomycin HCl (Vanco Iv Per Pharmacy) VANCOMYCIN PER PHARMACY PER PROTOCOL XX ; Start 07/20/18 at 12:30 Insulin Aspart (Novolog Insulin Pen) NOVOLOG *MILD* ALGORITHM WITH MEALS BEDTIME SC ; Start 07/20/18 at 18:00 Vancomycin HCl 250 ml @ 125 mls/hr Q12H IVPB Last administered on 07/21/18at 01:26; Admin Dose 125 MLS/HR; Start 07/20/18 at 14:00 Fluocinonide (Lidex 0.05% Cr) 1 applic BID TOP Last administered on 07/21/18at 11:19; Admin Dose 1 APPLIC; Start 07/21/18 at 09:30 Morphine Sulfate (morphine) 2 mg Q4H PRN IV SEVERE PAIN LEVEL 7-10 Last administered on 07/21/18at 11:15; Admin Dose 2 MG; Start 07/21/18 at 11:00 Sodium Hypochlorite ([place] Diluted (40)) 1 applic BID TP ; Start 07/21/18 at 11:30 Miscellaneous Information (*Rx Drug Level Order Reminder*) VANCOMYCIN TROUGH AT 0100 0100 ONCE XX ; Start 07/22/18 at 01:00; Stop 07/22/18 at 01:01 GREGORY BAPTISTE NP Jul 21, 2018 13:18
[2018-07-21 14:42] VITALS: BP 120/74; PULSE 55; RESP 16
--- NOTE | 2018-07-21 15:18 | CONS ---
DATE OF ADMISSION: 07/20/2018 DATE OF CONSULTATION: 07/21/2018 REFERRING PHYSICIAN: Alex Scanlon, nurse practitioner. REASON FOR CONSULTATION: Right leg venous stasis ulceration, cellulitis and chronic postphlebitic sy ndrome. HISTORY OF PRESENT ILLNESS: This is a 62-year-old gentleman. He has hypertension. He has had a his tory of DVTs in the past in the right lower extremity, diabetes. He was here in the hospital about 3 weeks ago with the same problem and had edema and cellulitis and ulceration in the right lower extre mity, treated him with antibiotics and put him in to some multilayer compression. He was supposed to follow up with me in the wound center as an outpatient, but he is having issues with his insurance. He just became eligible for Medicare and he was switched to a plan that we do take in the wound cent er. So basically we have been trying to get him in for the last 2 weeks and fighting with insurance i ssues and he now has developed recurrent cellulitis and a lot of edema and pain in the right lower ex tremity. He has not been using any compression. He was taking p.o. antibiotics until a few days ago . He has right lower extremity deep venous thrombosis is a femoral popliteal DVT. He has been on Co umadin chronically for quite some time. He has continued to take it. The DVT is fully noncompressib le so it is not recanalized at all. So he has extensive right fem-pop DVT leaving him with fairly se rosita postphlebitic syndrome. MEDICATIONS: 1. Morphine 2. Lidex ointment that Dr. Bravo had recommended. 3. He has been getting Hydrochlorothiazide. 4. Metformin. 5. Xarelto. 6. Zosyn. 7. Insulin. 7. Vancomycin. 8. Zofran. 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 He was having financi al problems and lost his house. He has been living in his car for months. He is a former smoker. Lila alegria does not drink or use any illicit drugs. FAMILY HISTORY: Significant for diabetes. REVIEW OF SYSTEMS: He currently denies any chest pain, shortness of breath, nausea, vomiting, diarrh ea. No fever, no chills, no recent weight gain or weight loss. He has not been using compression as he was not able to follow up with us in the wound center for further compression therapy. PHYSICAL EXAMINATION: GENERAL: He is an elderly gentleman. He is in no acute distress. VITAL SIGNS: He has been afebrile. His blood pressure is 98/55, heart rate 59, respiratory rate 16. He is 94% sat on room air. NECK: 2+ carotid, radial and brachial pulses bilaterally. LUNGS: Clear. HEART: Regular rate and rhythm. ABDOMEN: Obese, soft, nontender, nondistended. EXTREMITIES: He has 2+ femoral, 1+ popliteal, no DP or PT pulses are palpable in either lower extrem ity. The venous duplex scan was done yesterday. It shows again an occlusive DVT in the right mid fe moral and popliteal veins, left lower extremity is normal and on exam, it is also normal as well. He has extensive chronic venous stasis changes in the right lower extremity with 2 to 3+ edema with marcia e scattered ulcerations, so a lot of induration and erythema. There is nothing on the left. There a re no pedal pulses bilaterally. No wounds on the feet. IMPRESSION: Chronic recurring venous ulcerations from postphlebitic syndrome, right lower extremity. He has extensive fem-pop occlusive DVT. He needs to continue the Xarelto definitely and he is on s ome antibiotics, although I think mostly this is an issue with venous hypertension. Will ask the [facility] center nurses to place a compression wrap tomorrow. I am going to order an arterial study today j ust to get a better idea of what his arterial circulation is and then will base the degree of alexey jose on that. I suspect he has some chronic arterial disease as well. I have also recommended he sw itch his insurance. He just switched into this Medicare HMO, which we do not take at the [facility], so I have recommended he just got with straight [place] which would make it easier for him to ge t into the wound center. It would also make it easier for us to order him some compression therapy a nd compression devices, which will be virtually impossible with his Medicare HMO and he does not have the money currently to buy these things, I think his own. Hopefully we will get his insurance strai ghtened out and we will be able to see him in the wound center once he is discharged. Dictated By: BRANDON MARQUIS/CHRISTIAN Conf#: [id number] [facility]#: [id number] CC: RHETT SMITH MD; ALEX SCANLON NP; ROBERTO العراقيM; NYA SAHU MD;*End*
[2018-07-21] MEDS: DAKINS 0.0125%(1/40) 473 ML SOLUTION TP SCH ×2 (16:42→20:35)
[2018-07-21] MEDS: RIVAROXABAN 20 MG TABLET PO SCH (17:46)
[2018-07-21 20:00] VITALS: BP 119/65; PULSE 60; RESP 18
[2018-07-21] MEDS: CEFEPIME 1GM/50 ML (PMX) 50 ML IVPB SCH (20:33)
[2018-07-21] MEDS: morphine 4 MG/ML VIAL IV PRN (20:43)
[2018-07-22 02:00] VITALS: BP 121/81; PULSE 63; RESP 18
[2018-07-22] MEDS: VANCOMYCIN 1 GM 250 ML IVPB SCH ×2 (02:03→14:05)
[2018-07-22] MEDS: morphine 4 MG/ML VIAL IV PRN ×3 (06:00→21:44)
[2018-07-22] MEDS: DAKINS 0.0125%(1/40) 473 ML SOLUTION TP SCH ×3 (06:14→21:00)
[2018-07-22] MEDS: FLUOCINONIDE 0.05% 15 GM CR TOP SCH ×3 (06:15→21:00)
[2018-07-22 07:34] VITALS: BP 130/88; PULSE 53; RESP 18
[2018-07-22] MEDS: INSULIN ASPART [NOVOLOG] 3 ML PEN SC SCH ×4 (08:00→21:00)
[2018-07-22] MEDS: metFORMIN 500 MG TAB PO SCH ×2 (08:30→17:29)
[2018-07-22] MEDS: CEFEPIME 1GM/50 ML (PMX) 50 ML IVPB SCH ×2 (08:32→21:44)
[2018-07-22] MEDS: HYDROCHLOROTHIAZIDE 12.5 MG CAP PO SCH (08:33)
--- NOTE | 2018-07-22 10:53 | PN ---
Date/Time of Note Date/Time of Note DATE: 07/22/18 TIME: 10:47 Assessment/Plan VTE Prophylaxis Risk score (from Ns)>0 risk: 6 [place] [facility] [place] contraindicated: other Pharmacological prophylaxis: rivaroxaban Lines/Catheters IV C[facility]ter Type (from [facility]): Peripheral IV Urinary Cath still in place: No Assessment/Plan Hospital Course Assessment and plan 1. Infected right lower extremity venous stasis ulcer/cellulitis. - continue abx - podiatry following 2. 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 Diabetes. -HbA1c is 6.5. -Continue insulin regimen 4. Hypertension -Continue antihypertensives. Adjust as needed. 5. Obesity. -Weight reduction was advised 6. Anemia -Monitor H&H. Trances blood products as needed. Disposition plan. Continue with wound care. Case management was consulted to assist with authorization for outpatient follow-up with [facility] center. Continue supportive care for now. Follow-up with medical case manager. Discussed plan of care with Dr. Munoz Result Diagram: 07/22/18 0552 07/22/18 0552 Results 24hrs Laboratory Tests Test 07/21/18 12:37 07/21/18 17:46 07/21/18 20:30 07/22/18 00:53 Bedside Glucose 102 139 110 Vancomycin Level 11.9 Trough Test 07/22/18 05:52 07/22/18 08:30 White Blood Count 5.6 Red Blood Count 4.12 L Hemoglobin 11.7 L Hematocrit 36.7 L Mean Corpuscular 89.1 Volume Mean Corpuscular 28.4 L Hemoglobin Mean Corpuscular 31.9 L Hemoglobin Concent Red Cell 13.3 Distribution Width Platelet Count 173 Mean Platelet Volume 9.3 Immature 0.900 H Granulocytes % Neutrophils % 61.8 Lymphocytes % 23.0 Monocytes % 11.1 H Eosinophils % 2.5 Basophils % 0.7 Nucleated Red Blood 0.0 Cells % Immature 0.050 H Granulocytes # Neutrophils # 3.5 Lymphocytes # 1.3 Monocytes # 0.6 Eosinophils # 0.1 Basophils # 0.0 Nucleated Red Blood 0.0 Cells # Sodium Level 141 Potassium Level 4.0 Chloride Level 108 Carbon Dioxide Level 29 Anion Gap 4 L Blood Urea Nitrogen 17 Creatinine 1.22 Est Glomerular 60 Filtrat Rate mL/min Glucose Level 124 Calcium Level 9.1 Phosphorus Level 4.0 Magnesium Level 1.9 Bedside Glucose 113 Subjective 24 Hr Interval Summary Free Text/Dictation Reports having left shoulder pain. Still reports having some swelling in right lower extremity. Exam/Review of Systems Exam Vitals Vital Signs Date Temp Pulse Resp B/P (MAP) Pulse Ox O2 O2 Flow FiO2 Time Delivery Rate 07/22/18 98.1 53 18 130/88 97 Room Air 07:34 (102) Intake and Output 07/21/18 07/21/18 07/22/18 1515:00 23:00 07:00 IntakeIntake Total 820 ml 1460 ml 250 ml OutputOutput Total 700 ml BalanceBalance 820 ml 1460 ml -450 ml Constitutional: alert, oriented, obese Psych: nl mood/affect Head: normocephalic Respiratory: clear to auscultation, normal air movement Cardiovascular: regular rate and rhythm Gastrointestinal: soft, non-tender Musculoskeletal: swelling (rle) Neurological: [employer] II-XII intact, nl mental status, nl speech Skin: other (dressing cdi rle ) Results Results 24hrs Laboratory Tests Test 07/21/18 12:37 07/21/18 17:46 07/21/18 20:30 07/22/18 00:53 Bedside Glucose 102 139 110 Vancomycin Level 11.9 Trough Test 07/22/18 05:52 07/22/18 08:30 White Blood Count 5.6 Red Blood Count 4.12 L Hemoglobin 11.7 L Hematocrit 36.7 L Mean Corpuscular 89.1 Volume Mean Corpuscular 28.4 L Hemoglobin Mean Corpuscular 31.9 L Hemoglobin Concent Red Cell 13.3 Distribution Width Platelet Count 173 Mean Platelet Volume 9.3 Immature 0.900 H Granulocytes % Neutrophils % 61.8 Lymphocytes % 23.0 Monocytes % 11.1 H Eosinophils % 2.5 Basophils % 0.7 Nucleated Red Blood 0.0 Cells % Immature 0.050 H Granulocytes # Neutrophils # 3.5 Lymphocytes # 1.3 Monocytes # 0.6 Eosinophils # 0.1 Basophils # 0.0 Nucleated Red Blood 0.0 Cells # Sodium Level 141 Potassium Level 4.0 Chloride Level 108 Carbon Dioxide Level 29 Anion Gap 4 L Blood Urea Nitrogen 17 Creatinine 1.22 Est Glomerular 60 Filtrat Rate mL/min Glucose Level 124 Calcium Level 9.1 Phosphorus Level 4.0 Magnesium Level 1.9 Bedside Glucose 113 Medications Medication Current Medications IV Flush (NS 3 ml) 3 ml PER PROTOCOL IV ; Start 07/20/18 at 11:30 Ondansetron HCl (Zofran Inj) 4 mg Q6H PRN IV NAUSEA/VOMITING; Start 07/20/18 at 11:30 Acetaminophen (Tylenol Tab) 650 mg Q6H PRN PO .PAIN 1-3 OR TEMP; Start 07/20/18 at 11:30 Acetaminophen/ Hydrocodone Bitart ([place] (5/325)) 1 tab Q6H PRN PO .PAIN 4-6; Start 07/20/18 at 11:30 Hydrochlorothiazide (Hydrochlorothiazide) 12.5 mg DAILY PO ; Start 07/21/18 at 09:00 Metformin HCl (Glucophage) 500 mg WITH BREAKFAST DINNE PO Last administered on 07/22/18at 08:30; Admin Dose 500 MG; Start 07/20/18 at 18:00 Rivaroxaban (Xarelto) 20 mg WITH DINNER PO Last administered on 07/21/18at 17:46; Admin Dose 20 MG; Start 07/20/18 at 18:00 Miscellaneous Information 1 ea NOTE XX ; Start 07/20/18 at 12:00 Glucose (Glutose) 15 gm Q15M PRN PO DECREASED GLUCOSE; Start 07/20/18 at 12:00 Glucose (Glutose) 22.5 gm Q15M PRN PO DECREASED GLUCOSE; Start 07/20/18 at 12:00 Dextrose (D50w Syringe) 25 ml Q15M PRN IV DECREASED GLUCOSE; Start 07/20/18 at 12:00 Dextrose (D50w Syringe) 50 ml Q15M PRN IV DECREASED GLUCOSE; Start 07/20/18 at 12:00 Glucagon (Glucagen) 1 mg Q15M PRN IM DECREASED GLUCOSE; Start 07/20/18 at 12:00 Glucose (Glutose) 15 gm Q15M PRN BUCCAL DECREASED GLUCOSE; Start 07/20/18 at 12:00 Vancomycin HCl (Vanco Iv Per Pharmacy) VANCOMYCIN PER PHARMACY PER PROTOCOL XX ; Start 07/20/18 at 12:30 Insulin Aspart (Novolog Insulin Pen) NOVOLOG *MILD* ALGORITHM WITH MEALS BEDTIME SC ; Start 07/20/18 at 18:00 Vancomycin HCl 250 ml @ 125 mls/hr Q12H IVPB Last administered on 07/22/18at 02:03; Admin Dose 125 MLS/HR; Start 07/20/18 at 14:00 Fluocinonide (Lidex 0.05% Cr) 1 applic BID TOP Last administered on 07/22/18 08:32; Admin Dose 1 APPLIC; Start 07/21/18 at 09:30 Sodium Hypochlorite (Dakins Diluted ()) 1 applic BID TP Last administered on 07/22/18at 08:31; Admin Dose 1 APPLIC; Start 07/21/18 at 11:30 Cefepime HCl 50 ml @ 100 mls/hr Q12 IVPB Last administered on 07/22/18 08:32; Admin Dose 100 MLS/HR; Start 07/21/18 at 21:00 Morphine Sulfate (morphine) 4 mg Q6H PRN IV SEVERE PAIN LEVEL 7-10 Last administered on 07/22/18 06:00; Admin Dose 4 MG; Start 07/21/18 at 17:00 ESTELA ESCOTO NP Jul 22, 2018 10:53
[2018-07-22 14:36] VITALS: BP 143/85; PULSE 58; RESP 18
--- NOTE | 2018-07-22 15:22 | CONS ---
Assessment/Plan Assessment/Plan Hospital Course (Demo Recall) No acute changes looks comfortable Antimicrobials: Cefepime, vancomycin Microbiology: Wound cultures previous admission grew Enterobacter and coag negative staph species PHYSICAL EXAMINATION: GENERAL: This is obese, well-developed, elderly man who is alert, in no distress. HEENT: Head atraumatic, normocephalic. Sclerae anicteric. Buccal mucosa pink. NECK: Supple. CHEST: Rise symmetrical. Breath sounds clear. HEART: S1, S2. ABDOMEN: Obese, soft. Bowel tones present. EXTREMITIES: Right lower extremity with edema and erythema, patient has a dressing below knee that is clean dry and intact Assessment: 1. Right lower extremity acute on chronic cellulitis 2. Bilateral lower extremities chronic venous stasis 3. Diabetes Plan: Stable, continue present care, management per podiatry, pending wound cx Consultation Date/Type/Reason Admit Date/Time Jul 20, 2018 at 10:28 Initial Consult Date Type of Consult id Date/Time of Note DATE: 07/22/18 TIME: 15:21 Exam/Review of Systems Exam Vitals Vital Signs Date Temp Pulse Resp B/P (MAP) Pulse Ox O2 O2 Flow FiO2 Time Delivery Rate 07/22/18 98.3 58 18 143/85 97 Room Air 14:36 (104) Intake and Output 07/21/18 07/21/18 07/22/18 1515:00 23:00 07:00 IntakeIntake Total 820 ml 1460 ml 250 ml OutputOutput Total 700 ml BalanceBalance 820 ml 1460 ml -450 ml Results Result Diagram: 07/22/18 0552 07/22/18 0552 Results 24hrs Laboratory Tests Test 07/21/18 17:46 07/21/18 20:30 07/22/18 00:53 07/22/18 05:52 Bedside Glucose 139 110 Vancomycin Level 11.9 Trough White Blood Count 5.6 Red Blood Count 4.12 L Hemoglobin 11.7 L Hematocrit 36.7 L Mean Corpuscular 89.1 Volume Mean Corpuscular 28.4 L Hemoglobin Mean Corpuscular 31.9 L Hemoglobin Concent Red Cell 13.3 Distribution Width Platelet Count 173 Mean Platelet Volume 9.3 Immature 0.900 H Granulocytes % Neutrophils % 61.8 Lymphocytes % 23.0 Monocytes % 11.1 H Eosinophils % 2.5 Basophils % 0.7 Nucleated Red Blood 0.0 Cells % Immature 0.050 H Granulocytes # Neutrophils # 3.5 Lymphocytes # 1.3 Monocytes # 0.6 Eosinophils # 0.1 Basophils # 0.0 Nucleated Red Blood 0.0 Cells # Sodium Level 141 Potassium Level 4.0 Chloride Level 108 Carbon Dioxide Level 29 Anion Gap 4 L Blood Urea Nitrogen 17 Creatinine 1.22 Est Glomerular 60 Filtrat Rate mL/min Glucose Level 124 Calcium Level 9.1 Phosphorus Level 4.0 Magnesium Level 1.9 Test 07/22/18 08:30 07/22/18 12:12 Bedside Glucose 113 138 Medications Medication Current Medications IV Flush (NS 3 ml) 3 ml PER PROTOCOL IV ; Start 07/20/18 at 11:30 Ondansetron HCl (Zofran Inj) 4 mg Q6H PRN IV NAUSEA/VOMITING; Start 07/20/18 at 11:30 Acetaminophen (Tylenol Tab) 650 mg Q6H PRN PO .PAIN 1-3 OR TEMP; Start 07/20/18 at 11:30 Acetaminophen/ Hydrocodone Bitart ([place] (5/325)) 1 tab Q6H PRN PO .PAIN 4-6; Start 07/20/18 at 11:30 Hydrochlorothiazide (Hydrochlorothiazide) 12.5 mg DAILY PO ; Start 07/21/18 at 09:00 Metformin HCl (Glucophage) 500 mg WITH BREAKFAST DINNE PO Last administered on 07/22/18at 08:30; Admin Dose 500 MG; Start 07/20/18 at 18:00 Rivaroxaban (Xarelto) 20 mg WITH DINNER PO Last administered on 07/21/18at 17:46; Admin Dose 20 MG; Start 07/20/18 at 18:00 Miscellaneous Information 1 ea NOTE XX ; Start 07/20/18 at 12:00 Glucose (Glutose) 15 gm Q15M PRN PO DECREASED GLUCOSE; Start 07/20/18 at 12:00 Glucose (Glutose) 22.5 gm Q15M PRN PO DECREASED GLUCOSE; Start 07/20/18 at 12:00 Dextrose (D50w Syringe) 25 ml Q15M PRN IV DECREASED GLUCOSE; Start 07/20/18 at 12:00 Dextrose (D50w Syringe) 50 ml Q15M PRN IV DECREASED GLUCOSE; Start 07/20/18 at 12:00 Glucagon (Glucagen) 1 mg Q15M PRN IM DECREASED GLUCOSE; Start 07/20/18 at 12:00 Glucose (Glutose) 15 gm Q15M PRN BUCCAL DECREASED GLUCOSE; Start 07/20/18 at 12:00 Vancomycin HCl (Vanco Iv Per Pharmacy) VANCOMYCIN PER PHARMACY PER PROTOCOL XX ; Start 07/20/18 at 12:30 Insulin Aspart (Novolog Insulin Pen) NOVOLOG *MILD* ALGORITHM WITH MEALS BEDTIME SC ; Start 07/20/18 at 18:00 Vancomycin HCl 250 ml @ 125 mls/hr Q12H IVPB Last administered on 07/22/18at 14:05; Admin Dose 125 MLS/HR; Start 07/20/18 at 14:00 Fluocinonide (Lidex 0.05% Cr) 1 applic BID TOP Last administered on 07/22/18 08:32; Admin Dose 1 APPLIC; Start 07/21/18 at 09:30 Sodium Hypochlorite (Dakins Diluted (1/40)) 1 applic BID TP Last administered on 07/22/18at 08:31; Admin Dose 1 APPLIC; Start 07/21/18 at 11:30 Cefepime HCl 50 ml @ 100 mls/hr Q12 IVPB Last administered on 07/22/18 08:32; Admin Dose 100 MLS/HR; Start 07/21/18 at 21:00 Morphine Sulfate (morphine) 4 mg Q6H PRN IV SEVERE PAIN LEVEL 7-10 Last administered on 07/22/18 14:07; Admin Dose 4 MG; Start 07/21/18 at 17:00 GREGORY BAPTISTE NP Jul 22, 2018 15:22
[2018-07-22] MEDS: RIVAROXABAN 20 MG TABLET PO SCH (17:29)
[2018-07-22 20:33] VITALS: BP 143/93; PULSE 59; RESP 17
[2018-07-23 01:12] VITALS: BP 131/77; PULSE 69; RESP 18
[2018-07-23] MEDS: VANCOMYCIN 1 GM 250 ML IVPB SCH (02:19)
[2018-07-23 07:50] VITALS: BP 156/90; PULSE 57; RESP 18
[2018-07-23] MEDS: INSULIN ASPART [NOVOLOG] 3 ML PEN SC SCH ×4 (08:00→20:07)
[2018-07-23] MEDS: FLUOCINONIDE 0.05% 15 GM CR TOP SCH ×2 (09:00→20:08)
[2018-07-23] MEDS: DAKINS 0.0125%(1/40) 473 ML SOLUTION TP SCH ×2 (09:00→20:08)
[2018-07-23] MEDS: CEFEPIME 1GM/50 ML (PMX) 50 ML IVPB SCH (10:20)
[2018-07-23] MEDS: morphine 4 MG/ML VIAL IV PRN ×2 (10:21→20:09)
[2018-07-23] MEDS: HYDROCHLOROTHIAZIDE 12.5 MG CAP PO SCH (10:22)
[2018-07-23] MEDS: metFORMIN 500 MG TAB PO SCH ×2 (10:29→17:19)
--- NOTE | 2018-07-23 10:39 | PN ---
Date/Time of Note Date/Time of Note DATE: 07/23/18 TIME: 10:35 Assessment/Plan VTE Prophylaxis Risk score (from Ns)>0 risk: 6 SCD applied (from Ns): No SCD contraindicated: other Pharmacological prophylaxis: rivaroxaban Lines/Catheters IV Catheter Type (from [facility]): [place] Urinary Cath still in place: No Assessment/Plan Hospital Course Assessment and plan 1. Infected right lower extremity venous stasis ulcer/cellulitis. - continue abx - podiatry following - f/u final cultures 2. 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 Diabetes. -HbA1c is 6.5. -Continue insulin regimen 4. Hypertension -Continue antihypertensives. Adjust as needed. 5. Obesity. -Weight reduction was advised 6. Anemia -Monitor H&H. Trances blood products as needed. Disposition plan. Continue with wound care. Case management was consulted to a ssist with authorization for outpatient follow-up with [facility] center. Continue supportive care for now. Follow-up with renal case manager. Awaiting final cultures. continue supportive care for now. Plan to transition to outpatient once appropriate outpatient resources are set up Discussed plan of care with Dr. Munoz Result Diagram: 07/22/18 0552 07/22/18 0552 Results 24hrs Laboratory Tests Test 07/22/18 12:12 07/22/18 17:29 07/22/18 21:35 07/23/18 08:36 Bedside Glucose 138 105 123 112 Subjective 24 Hr Interval Summary Free Text/Dictation Comfortable at present. denies any pain at this time. Exam/Review of Systems Exam Vitals Vital Signs Date Temp Pulse Resp B/P (MAP) Pulse Ox O2 O2 Flow FiO2 Time Delivery Rate 07/23/18 98.4 57 18 156/90 100 07:50 (112) 07/22/18 Room Air 14:36 Intake and Output 07/22/18 07/22/18 07/23/18 1515:00 23:00 07:00 IntakeIntake Total 720 ml 710 ml 350 ml OutputOutput Total 350 ml 350 ml 275 ml BalanceBalance 370 ml 360 ml 75 ml Exam Constitutional: alert, oriented, obese Psych: nl mood/affect Head: normocephalic Respiratory: clear to auscultation, normal air movement Cardiovascular: regular rate and rhythm Gastrointestinal: soft, non-tender Musculoskeletal: swelling (rle) Neurological: [employer]ILOR II-XII intact, nl mental status, nl speech Skin: other (compression dressing cdi rle ) Results Results 24hrs Laboratory Tests Test 07/22/18 12:12 07/22/18 17:29 07/22/18 21:35 07/23/18 08:36 Bedside Glucose 138 105 123 112 Medications Medication Current Medications IV Flush (NS 3 ml) 3 ml PER PROTOCOL IV ; Start 07/20/18 at 11:30 Ondansetron HCl (Zofran Inj) 4 mg Q6H PRN IV NAUSEA/VOMITING; Start 07/20/18 at 11:30 Acetaminophen (Tylenol Tab) 650 mg Q6H PRN PO .PAIN 1-3 OR TEMP; Start 07/20/18 at 11:30 Acetaminophen/ Hydrocodone Bitart ([place] (5/325)) 1 tab Q6H PRN PO .PAIN 4-6; Start 07/20/18 at 11:30 Hydrochlorothiazide (Hydrochlorothiazide) 12.5 mg DAILY PO Last administered on 07/23/18at 10:22; Admin Dose 12.5 MG; Start 07/21/18 at 09:00 Metformin HCl (Glucophage) 500 mg WITH BREAKFAST DINNE PO Last administered on 07/23/18at 10:29; Admin Dose 500 MG; Start 07/20/18 at 18:00 Rivaroxaban (Xarelto) 20 mg WITH DINNER PO Last administered on 07/22/18at 17:29; Admin Dose 20 MG; Start 07/20/18 at 18:00 Miscellaneous Information 1 ea NOTE XX ; Start 07/20/18 at 12:00 Glucose (Glutose) 15 gm Q15M PRN PO DECREASED GLUCOSE; Start 07/20/18 at 12:00 Glucose (Glutose) 22.5 gm Q15M PRN PO DECREASED GLUCOSE; Start 07/20/18 at 12:00 Dextrose (D50w Syringe) 25 ml Q15M PRN IV DECREASED GLUCOSE; Start 07/20/18 at 12:00 Dextrose (D50w Syringe) 50 ml Q15M PRN IV DECREASED GLUCOSE; Start 07/20/18 at 12:00 Glucagon (Glucagen) 1 mg Q15M PRN IM DECREASED GLUCOSE; Start 07/20/18 at 12:00 Glucose (Glutose) 15 gm Q15M PRN BUCCAL DECREASED GLUCOSE; Start 07/20/18 at 12:00 Vancomycin HCl (Vanco Iv Per Pharmacy) VANCOMYCIN PER PHARMACY PER PROTOCOL XX ; Start 07/20/18 at 12:30 Insulin Aspart (Novolog Insulin Pen) NOVOLOG *MILD* ALGORITHM WITH MEALS BEDTIME SC ; Start 07/20/18 at 18:00 Vancomycin HCl 250 ml @ 125 mls/hr Q12H IVPB Last administered on 07/23/18at 02:19; Admin Dose 125 MLS/HR; Start 07/20/18 at 14:00 Fluocinonide (Lidex 0.05% Cr) 1 applic BID TOP Last administered on 07/22/18at 08:32; Admin Dose 1 APPLIC; Start 07/21/18 at 09:30 Sodium Hypochlorite (Dakins Diluted (40)) 1 applic BID TP Last administered on 07/22/18at 08:31; Admin Dose 1 APPLIC; Start 07/21/18 at 11:30 Cefepime HCl 50 ml @ 100 mls/hr Q12 IVPB Last administered on 07/23/18at 10:20; Admin Dose 100 MLS/HR; Start 07/21/18 at 21:00 Morphine Sulfate (morphine) 4 mg Q6H PRN IV SEVERE PAIN LEVEL 7-10 Last administered on 07/23/18at 10:21; Admin Dose 4 MG; Start 07/21/18 at 17:00 ESTELA ESCOTO NP Jul 23, 2018 10:39
--- NOTE | 2018-07-23 12:04 | CONS ---
Assessment/Plan Assessment/Plan Hospital Course (Demo Recall) No acute changes, no fevers, looks comfortable Antimicrobials: Cefepime, vancomycin Microbiology: Wound cultures previous admission grew Enterobacter and coag negative staph species PHYSICAL EXAMINATION: GENERAL: This is obese, well-developed, elderly man who is alert, in no distress. HEENT: Head atraumatic, normocephalic. Sclerae anicteric. Buccal mucosa pink. NECK: Supple. CHEST: Rise symmetrical. Breath sounds clear. HEART: S1, S2. ABDOMEN: Obese, soft. Bowel tones present. EXTREMITIES: Right lower extremity with edema and erythema, patient has a dressing below knee that is clean dry and intact Assessment: 1. Right lower extremity acute on chronic cellulitis 2. Bilateral lower extremities chronic venous stasis 3. Diabetes 4. Hx RLE DVT Plan: Stable, podiatry and vascular surgery rec-s noted, change abx to oral Doxycycline Consultation Date/Type/Reason Admit Date/Time Jul 20, 2018 at 10:28 Initial Consult Date Type of Consult id Date/Time of Note DATE: 07/23/18 TIME: 12:03 Exam/Review of Systems Exam Vitals Vital Signs Date Temp Pulse Resp B/P (MAP) Pulse Ox O2 O2 Flow FiO2 Time Delivery Rate 07/23/18 98.4 57 18 156/90 100 07:50 (112) 07/22/18 Room Air 14:36 Intake and Output 07/22/18 07/22/18 07/23/18 1515:00 23:00 07:00 IntakeIntake Total 720 ml 710 ml 350 ml OutputOutput Total 350 ml 350 ml 275 ml BalanceBalance 370 ml 360 ml 75 ml Results Result Diagram: 07/22/18 0552 07/22/18 0552 Results 24hrs Laboratory Tests Test 07/22/18 12:12 07/22/18 17:29 07/22/18 21:35 07/23/18 08:36 Bedside Glucose 138 105 123 112 Medications Medication Current Medications IV Flush (NS 3 ml) 3 ml PER PROTOCOL IV ; Start 07/20/18 at 11:30 Ondansetron HCl (Zofran Inj) 4 mg Q6H PRN IV NAUSEA/VOMITING; Start 07/20/18 at 11:30 Acetaminophen (Tylenol Tab) 650 mg Q6H PRN PO .PAIN 1-3 OR TEMP; Start 07/20/18 at 11:30 Acetaminophen/ Hydrocodone Bitart ([place] (5/325)) 1 tab Q6H PRN PO .PAIN 4-6; Start 07/20/18 at 11:30 Hydrochlorothiazide (Hydrochlorothiazide) 12.5 mg DAILY PO Last administered on 07/23/18at 10:22; Admin Dose 12.5 MG; Start 07/21/18 at 09:00 Metformin HCl (Glucophage) 500 mg WITH BREAKFAST DINNE PO Last administered on 07/23/18at 10:29; Admin Dose 500 MG; Start 07/20/18 at 18:00 Rivaroxaban (Xarelto) 20 mg WITH DINNER PO Last administered on 07/22/18at 17:29; Admin Dose 20 MG; Start 07/20/18 at 18:00 Miscellaneous Information 1 ea NOTE XX ; Start 07/20/18 at 12:00 Glucose (Glutose) 15 gm Q15M PRN PO DECREASED GLUCOSE; Start 07/20/18 at 12:00 Glucose (Glutose) 22.5 gm Q15M PRN PO DECREASED GLUCOSE; Start 07/20/18 at 12:00 Dextrose (D50w Syringe) 25 ml Q15M PRN IV DECREASED GLUCOSE; Start 07/20/18 at 12:00 Dextrose (D50w Syringe) 50 ml Q15M PRN IV DECREASED GLUCOSE; Start 07/20/18 at 12:00 Glucagon (Glucagen) 1 mg Q15M PRN IM DECREASED GLUCOSE; Start 07/20/18 at 12:00 Glucose (Glutose) 15 gm Q15M PRN BUCCAL DECREASED GLUCOSE; Start 07/20/18 at 12:00 Vancomycin HCl (Vanco Iv Per Pharmacy) VANCOMYCIN PER PHARMACY PER PROTOCOL XX ; Start 07/20/18 at 12:30 Insulin Aspart (Novolog Insulin Pen) NOVOLOG *MILD* ALGORITHM WITH MEALS BEDTIME SC ; Start 07/20/18 at 18:00 Vancomycin HCl 250 ml @ 125 mls/hr Q12H IVPB Last administered on 07/23/18at 02:19; Admin Dose 125 MLS/HR; Start 07/20/18 at 14:00 Fluocinonide (Lidex 0.05% Cr) 1 applic BID TOP Last administered on 07/22/18at 08:32; Admin Dose 1 APPLIC; Start 07/21/18 at 09:30 Sodium Hypochlorite (Dakins Diluted ()) 1 applic BID TP Last administered on 07/22/18 08:31; Admin Dose 1 APPLIC; Start 07/21/18 at 11:30 Cefepime HCl 50 ml @ 100 mls/hr Q12 IVPB Last administered on 07/23/18 10:20; Admin Dose 100 MLS/HR; Start 07/21/18 at 21:00 Morphine Sulfate (morphine) 4 mg Q6H PRN IV SEVERE PAIN LEVEL 7-10 Last administered on 07/23/18at 10:21; Admin Dose 4 MG; Start 07/21/18 at 17:00 GREGORY BAPTISTE NP Jul 23, 2018 12:04
[2018-07-23 14:32] VITALS: BP 147/85; PULSE 59; RESP 18
[2018-07-23] MEDS: RIVAROXABAN 20 MG TABLET PO SCH (17:20)
[2018-07-23] MEDS: DOXYCYCLINE 100 MG TAB PO SCH (20:07)
[2018-07-23 20:36] VITALS: BP 163/75; PULSE 66; RESP 18
[2018-07-23 22:58] VITALS: BP 129/77; PULSE 67
[2018-07-24 01:02] VITALS: BP_SYST 126; BP_SYST 151; BP_DIAS 87; BP_DIAS 90; PULSE 58; PULSE 93; RESP 18
[2018-07-24] MEDS: morphine 4 MG/ML VIAL IV PRN ×2 (05:24→19:41)
[2018-07-24 07:28] VITALS: BP 132/78; PULSE 63; RESP 16
[2018-07-24] MEDS: INSULIN ASPART [NOVOLOG] 3 ML PEN SC SCH ×4 (08:00→21:00)
[2018-07-24] MEDS: FLUOCINONIDE 0.05% 15 GM CR TOP SCH ×2 (08:22→21:00)
[2018-07-24] MEDS: DAKINS 0.0125%(1/40) 473 ML SOLUTION TP SCH ×2 (08:22→21:00)
[2018-07-24] MEDS: HYDROCHLOROTHIAZIDE 12.5 MG CAP PO SCH (08:23)
[2018-07-24] MEDS: DOXYCYCLINE 100 MG TAB PO SCH ×2 (08:27→21:10)
[2018-07-24] MEDS: metFORMIN 500 MG TAB PO SCH ×2 (08:28→17:24)
--- NOTE | 2018-07-24 10:57 | PN ---
Date/Time of Note Date/Time of Note DATE: 07/24/18 TIME: 10:55 Assessment/Plan VTE Prophylaxis Risk score (from Ns)>0 risk: 6 SCD applied (from Nsg): No Lines/Catheters IV Catheter Type (from Nrs): Saline Lock Urinary Cath still in place: No Assessment/Plan Hospital Course Assessment and plan 1. Infected right lower extremity venous stasis ulcer/cellulitis. - continue abx - podiatry following - final cultures: WOUND CULTURE Final Organism 1 COAGULASE NEGATIVE STAPH QUANTITY 1+ Organism 2 CORYNEBACTERIUM SPECIES QUANTITY SCANT GROWTH 2. 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 Diabetes. -HbA1c is 6.5. -Continue insulin regimen 4. Hypertension -Continue antihypertensives. Adjust as needed. 5. Obesity. -Weight reduction was advised 6. Anemia -Monitor H&H. Trances blood products as needed. Disposition plan. Continue with wound care. Case management was consulted to assist with authorization for outpatient follow-up with [facility] center. Continue supportive care for now. Follow-up with caser. Plan to transition to outpatient once appropriate outpatient resources are set up . continue abx Discussed plan of care with Dr. Munoz Result Diagram: 07/24/18 0458 07/24/188 Results 24hrs Laboratory Tests Test 07/23/18 12:47 07/23/18 17:16 07/23/18 20:06 07/24/18 04:58 Bedside Glucose 110 99 134 White Blood Count 6.3 Red Blood Count 4.33 L Hemoglobin 12.3 L Hematocrit 37.9 L Mean Corpuscular 87.5 Volume Mean Corpuscular 28.4 L Hemoglobin Mean Corpuscular 32.5 Hemoglobin Concent Red Cell 13.2 Distribution Width Platelet Count 192 Mean Platelet Volume 9.6 Immature 0.800 H Granulocytes % Neutrophils % 61.8 Lymphocytes % 24.2 Monocytes % 9.5 Eosinophils % 2.9 Basophils % 0.8 Nucleated Red Blood 0.0 Cells % Immature 0.050 H Granulocytes # Neutrophils # 3.9 Lymphocytes # 1.5 Monocytes # 0.6 Eosinophils # 0.2 Basophils # 0.1 Nucleated Red Blood 0.0 Cells # Sodium Level 144 Potassium Level 3.9 Chloride Level 105 Carbon Dioxide Level 28 Anion Gap 11 # Blood Urea Nitrogen 20 Creatinine 1.24 Est Glomerular 59 L Filtrat Rate mL/min Glucose Level 131 Calcium Level 9.1 Test 07/24/18 08:20 Bedside Glucose 106 Subjective 24 Hr Interval Summary Free Text/Dictation comfortable at present. denies any pain Exam/Review of Systems Exam Vitals Vital Signs Date Temp Pulse Resp B/P (MAP) Pulse Ox O2 O2 Flow FiO2 Time Delivery Rate 07/24/18 98.1 63 16 132/78 92 07:28 (96) 07/22/18 Room Air 14:36 Intake and Output 07/23/18 07/23/18 07/24/18 1515:00 23:00 07:00 IntakeIntake Total 50 ml 1000 ml OutputOutput Total 200 ml 400 ml BalanceBalance 50 ml 800 ml -400 ml Exam Constitutional: alert, oriented, obese Psych: nl mood/affect Head: normocephalic Respiratory: clear to auscultation, normal air movement Cardiovascular: regular rate and rhythm Gastrointestinal: soft, non-tender Musculoskeletal: swelling (rle) Neurological: SHOVE UP II-XII intact, nl mental status, nl speech Skin: other (compression dressing cdi rle ) Results Results 24hrs Laboratory Tests Test 07/23/18 12:47 07/23/18 17:16 07/23/18 20:06 07/24/18 04:58 Bedside Glucose 110 99 134 White Blood Count 6.3 Red Blood Count 4.33 L Hemoglobin 12.3 L Hematocrit 37.9 L Mean Corpuscular 87.5 Volume Mean Corpuscular 28.4 L Hemoglobin Mean Corpuscular 32.5 Hemoglobin Concent Red Cell 13.2 Distribution Width Platelet Count 192 Mean Platelet Volume 9.6 Immature 0.800 H Granulocytes % Neutrophils % 61.8 Lymphocytes % 24.2 Monocytes % 9.5 Eosinophils % 2.9 Basophils % 0.8 Nucleated Red Blood 0.0 Cells % Immature 0.050 H Granulocytes # Neutrophils # 3.9 Lymphocytes # 1.5 Monocytes # 0.6 Eosinophils # 0.2 Basophils # 0.1 Nucleated Red Blood 0.0 Cells # Sodium Level 144 Potassium Level 3.9 Chloride Level 105 Carbon Dioxide Level 28 Anion Gap 11 # Blood Urea Nitrogen 20 Creatinine 1.24 Est Glomerular 59 L Filtrat Rate mL/min Glucose Level 131 Calcium Level 9.1 Test 07/24/18 08:20 Bedside Glucose 106 Medications Medication Current Medications IV Flush (NS 3 ml) 3 ml PER PROTOCOL IV ; Start 07/20/18 at 11:30 Ondansetron HCl (Zofran Inj) 4 mg Q6H PRN IV NAUSEA/VOMITING; Start 07/20/18 at 11:30 Acetaminophen (Tylenol Tab) 650 mg Q6H PRN PO .PAIN 1-3 OR TEMP Last administered on 07/24/18at 06:22; Admin Dose 650 MG; Start 07/20/18 at 11:30 Acetaminophen/ Hydrocodone Bitart ([place] (5/325)) 1 tab Q6H PRN PO .PAIN 4-6; Start 07/20/18 at 11:30 Hydrochlorothiazide (Hydrochlorothiazide) 12.5 mg DAILY PO Last administered on 07/23/18at 10:22; Admin Dose 12.5 MG; Start 07/21/18 at 09:00 Metformin HCl (Glucophage) 500 mg WITH BREAKFAST DINNE PO Last administered on 07/24/18at 08:28; Admin Dose 500 MG; Start 07/20/18 at 18:00 Rivaroxaban (Xarelto) 20 mg WITH DINNER PO Last administered on 07/23/18at 17:20; Admin Dose 20 MG; Start 07/20/18 at 18:00 Miscellaneous Information 1 ea NOTE XX ; Start 07/20/18 at 12:00 Glucose (Glutose) 15 gm Q15M PRN PO DECREASED GLUCOSE; Start 07/20/18 at 12:00 Glucose (Glutose) 22.5 gm Q15M PRN PO DECREASED GLUCOSE; Start 07/20/18 at 12:00 Dextrose (D50w Syringe) 25 ml Q15M PRN IV DECREASED GLUCOSE; Start 07/20/18 at 12:00 Dextrose (D50w Syringe) 50 ml Q15M PRN IV DECREASED GLUCOSE; Start 07/20/18 at 12:00 Glucagon (Glucagen) 1 mg Q15M PRN IM DECREASED GLUCOSE; Start 07/20/18 at 12:00 Glucose (Glutose) 15 gm Q15M PRN BUCCAL DECREASED GLUCOSE; Start 07/20/18 at 12:00 Insulin Aspart (Novolog Insulin Pen) NOVOLOG *MILD* ALGORITHM WITH MEALS BEDTIME SC ; Start 07/20/18 at 18:00 Fluocinonide (Lidex 0.05% Cr) 1 applic BID TOP Last administered on 07/22/18 08:32; Admin Dose 1 APPLIC; Start 07/21/18 at 09:30 Sodium Hypochlorite (Dakins Diluted ()) 1 applic BID TP Last administered on 07/22/18at 08:31; Admin Dose 1 APPLIC; Start 07/21/18 at 11:30 Morphine Sulfate (morphine) 4 mg Q6H PRN IV SEVERE PAIN LEVEL 7-10 Last administered on 07/24/18at 05:24; Admin Dose 4 MG; Start 07/21/18 at 17:00 Doxycycline Hyclate (Vibramycin) 100 mg BID PO Last administered on 07/24/18 08:27; Admin Dose 100 MG; Start 07/23/18 at 21:00 ESTELA ESCOTO NP Jul 24, 2018 10:57
[2018-07-24 14:31] VITALS: BP 146/86; PULSE 54; RESP 16
--- NOTE | 2018-07-24 15:54 | CONS ---
Assessment/Plan Assessment/Plan Hospital Course (Demo Recall) No acute changes, alert, feels good Antimicrobials: Doxycycline Microbiology: Wound cultures previous admission grew Enterobacter and coag negative staph species PHYSICAL EXAMINATION: GENERAL: This is obese, well-developed, elderly man who is alert, in no distress. HEENT: Head atraumatic, normocephalic. Sclerae anicteric. Buccal mucosa pink. NECK: Supple. CHEST: Rise symmetrical. Breath sounds clear. HEART: S1, S2. ABDOMEN: Obese, soft. Bowel tones present. EXTREMITIES: Right lower extremity wrapped Assessment: 1. Right lower extremity acute on chronic cellulitis 2. Bilateral lower extremities chronic venous stasis 3. Diabetes 4. Hx RLE DVT Plan: Stable, continue oral Doxycycline, follow podiatry recommendations Consultation Date/Type/Reason Admit Date/Time Jul 20, 2018 at 10:28 Initial Consult Date Type of Consult id Date/Time of Note DATE: 07/24/18 TIME: 15:53 Exam/Review of Systems Exam Vitals Vital Signs Date Temp Pulse Resp B/P (MAP) Pulse Ox O2 O2 Flow FiO2 Time Delivery Rate 07/24/18 97.6 54 16 146/86 99 14:31 (106) 07/22/18 Room Air 14:36 Intake and Output 07/23/18 07/23/18 07/24/18 1515:00 23:00 07:00 IntakeIntake Total 50 ml 1000 ml OutputOutput Total 200 ml 400 ml BalanceBalance 50 ml 800 ml -400 ml Results Result Diagram: 07/24/18 0458 07/24/18 0458 Results 24hrs Laboratory Tests Test 07/23/18 17:16 07/23/18 20:06 07/24/18 04:58 07/24/18 08:20 Bedside Glucose 99 134 106 White Blood Count 6.3 Red Blood Count 4.33 L Hemoglobin 12.3 L Hematocrit 37.9 L Mean Corpuscular 87.5 Volume Mean Corpuscular 28.4 L Hemoglobin Mean Corpuscular 32.5 Hemoglobin Concent Red Cell 13.2 Distribution Width Platelet Count 192 Mean Platelet Volume 9.6 Immature 0.800 H Granulocytes % Neutrophils % 61.8 Lymphocytes % 24.2 Monocytes % 9.5 Eosinophils % 2.9 Basophils % 0.8 Nucleated Red Blood 0.0 Cells % Immature 0.050 H Granulocytes # Neutrophils # 3.9 Lymphocytes # 1.5 Monocytes # 0.6 Eosinophils # 0.2 Basophils # 0.1 Nucleated Red Blood 0.0 Cells # Sodium Level 144 Potassium Level 3.9 Chloride Level 105 Carbon Dioxide Level 28 Anion Gap 11 # Blood Urea Nitrogen 20 Creatinine 1.24 Est Glomerular 59 L Filtrat Rate mL/min Glucose Level 131 Calcium Level 9.1 Test 07/24/18 11:38 Bedside Glucose 112 Medications Medication Current Medications IV Flush (NS 3 ml) 3 ml PER PROTOCOL IV ; Start 07/20/18 at 11:30 Ondansetron HCl (Zofran Inj) 4 mg Q6H PRN IV NAUSEA/VOMITING; Start 07/20/18 at 11:30 Acetaminophen (Tylenol Tab) 650 mg Q6H PRN PO .PAIN 1-3 OR TEMP Last admin istered on 07/24/18at 06:22; Admin Dose 650 MG; Start 07/20/18 at 11:30 Acetaminophen/ Hydrocodone Bitart ([place] (5/325)) 1 tab Q6H PRN PO .PAIN 4-6; Start 07/20/18 at 11:30 Hydrochlorothiazide (Hydrochlorothiazide) 12.5 mg DAILY PO Last administered on 07/23/18at 10:22; Admin Dose 12.5 MG; Start 07/21/18 at 09:00 Metformin HCl (Glucophage) 500 mg WITH BREAKFAST DINNE PO Last administered on 07/24/18at 08:28; Admin Dose 500 MG; Start 07/20/18 at 18:00 Rivaroxaban (Xarelto) 20 mg WITH DINNER PO Last administered on 07/23/18at 17:20; Admin Dose 20 MG; Start 07/20/18 at 18:00 Miscellaneous Information 1 ea NOTE XX ; Start 07/20/18 at 12:00 Glucose (Glutose) 15 gm Q15M PRN PO DECREASED GLUCOSE; Start 07/20/18 at 12:00 Glucose (Glutose) 22.5 gm Q15M PRN PO DECREASED GLUCOSE; Start 07/20/18 at 12:00 Dextrose (D50w Syringe) 25 ml Q15M PRN IV DECREASED GLUCOSE; Start 07/20/18 at 12:00 Dextrose (D50w Syringe) 50 ml Q15M PRN IV DECREASED GLUCOSE; Start 07/20/18 at 12:00 Glucagon (Glucagen) 1 mg Q15M PRN IM DECREASED GLUCOSE; Start 07/20/18 at 12:00 Glucose (Glutose) 15 gm Q15M PRN BUCCAL DECREASED GLUCOSE; Start 07/20/18 at 12:00 Insulin Aspart (Novolog Insulin Pen) NOVOLOG *MILD* ALGORITHM WITH MEALS BEDTIME SC ; Start 07/20/18 at 18:00 Fluocinonide (Lidex 0.05% Cr) 1 applic BID TOP Last administered on 07/22/18at 08:32; Admin Dose 1 APPLIC; Start 07/21/18 at 09:30 Sodium Hypochlorite (Dakins Diluted ()) 1 applic BID TP Last administered on 07/22/18at 08:31; Admin Dose 1 APPLIC; Start 07/21/18 at 11:30 Morphine Sulfate (morphine) 4 mg Q6H PRN IV SEVERE PAIN LEVEL 7-10 Last administered on 07/24/18at 05:24; Admin Dose 4 MG; Start 07/21/18 at 17:00 Doxycycline Hyclate (Vibramycin) 100 mg BID PO Last administered on 07/24/18at 08:27; Admin Dose 100 MG; Start 07/23/18 at 21:00 GREGORY BAPTISTE NP Jul 24, 2018 15:54
[2018-07-24] MEDS: RIVAROXABAN 20 MG TABLET PO SCH (17:24)
[2018-07-24 20:00] VITALS: BP 146/90; PULSE 63; RESP 17
[2018-07-24 20:05] VITALS: BP 145/90; PULSE 63; RESP 18
[2018-07-25 02:00] VITALS: BP 133/88; PULSE 62; RESP 18
[2018-07-25 07:55] VITALS: BP 135/73; PULSE 55; RESP 18
[2018-07-25] MEDS: INSULIN ASPART [NOVOLOG] 3 ML PEN SC SCH ×4 (08:00→21:00)
[2018-07-25] MEDS: metFORMIN 500 MG TAB PO SCH ×2 (08:39→17:10)
[2018-07-25] MEDS: HYDROCHLOROTHIAZIDE 12.5 MG CAP PO SCH (08:39)
[2018-07-25] MEDS: DOXYCYCLINE 100 MG TAB PO SCH ×2 (08:39→21:10)
[2018-07-25] MEDS: DAKINS 0.0125%(1/40) 473 ML SOLUTION TP SCH ×2 (08:41→21:00)
[2018-07-25] MEDS: FLUOCINONIDE 0.05% 15 GM CR TOP SCH ×2 (08:42→21:00)
[2018-07-25] MEDS ORDERED: DIPHENHYDRAMINE 50 MG INJ IV PRN (11:00)
--- NOTE | 2018-07-25 11:04 | PN ---
Date/Time of Note Date/Time of Note DATE: 07/25/18 TIME: 10:58 Assessment/Plan VTE Prophylaxis Risk score (from [facility] [place]0 risk: 7 SCD applied (from [facility] [place]): No SCD contraindicated: other Pharmacological prophylaxis: rivaroxaban Lines/Catheters IV Catheter Type (from [facility]): Saline Lock Urinary Cath still in place: No Assessment/Plan Hospital Course Assessment and plan 1. Infected right lower extremity venous stasis ulcer/cellulitis. - continue abx - podiatry following - final cultures: WOUND CULTURE Final Organism 1 COAGULASE NEGATIVE STAPH QUANTITY 1+ Organism 2 CORYNEBACTERIUM SPECIES QUANTITY SCANT GROWTH 2. 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 Diabetes. -HbA1c is 6.5. -Continue insulin regimen 4. Hypertension -Continue antihypertensives. Adjust as needed. 5. Obesity. -Weight reduction was advised 6. Anemia -Monitor H&H. Trances blood products as needed. 7. facial urticaria - etiology unknown - abx? - f/u ID recommendations - antihistamine prn Disposition plan. . Case management was consulted to assist with authorization for outpatient follow-up with [facility] center. Continue supportive care for now. Plan to transition to outpatient once appropriate outpatient resources are set up . antihistamine for urticaria. f/u ID recommendations. continue inhouse monitoring Discussed plan of care with Dr. Munoz Result Diagram: 07/25/18 0515 07/25/18 0515 Results 24hrs Laboratory Tests Test 07/24/18 11:38 07/24/18 17:24 07/24/18 21:09 07/25/18 05:15 Bedside Glucose 112 105 119 White Blood Count 6.5 Red Blood Count 4.30 L Hemoglobin 12.2 L Hematocrit 37.8 L Mean Corpuscular 87.9 Volume Mean Corpuscular 28.4 L Hemoglobin Mean Corpuscular 32.3 Hemoglobin Concent Red Cell 13.2 Distribution Width Platelet Count 198 Mean Platelet Volume 9.2 Immature 0.900 H Granulocytes % Neutrophils % 55.4 Lymphocytes % 28.4 Monocytes % 11.6 H Eosinophils % 2.8 Basophils % 0.9 Nucleated Red Blood 0.0 Cells % Immature 0.060 H Granulocytes # Neutrophils # 3.6 Lymphocytes # 1.8 Monocytes # 0.8 Eosinophils # 0.2 Basophils # 0.1 Nucleated Red Blood 0.0 Cells # Sodium Level 140 Potassium Level 4.3 Chloride Level 104 Carbon Dioxide Level 29 Anion Gap 7 Blood Urea Nitrogen 25 H Creatinine 1.15 Est Glomerular > 60 Filtrat Rate mL/min Glucose Level 120 Calcium Level 9.1 Test 07/25/18 08:18 Bedside Glucose 110 Subjective 24 Hr Interval Summary Free Text/Dictation reports some itchiness and redness on his face Exam/Review of Systems Exam Vitals Vital Signs Date Temp Pulse Resp B/P (MAP) Pulse Ox O2 O2 Flow FiO2 Time Delivery Rate 07/25/18 98.2 55 18 135/73 97 Room Air 07:55 (93) Intake and Output 07/24/18 07/24/18 07/25/18 1515:00 23:00 07:00 IntakeIntake Total 940 ml 540 ml BalanceBalance 940 ml 540 ml Exam Constitutional: alert, oriented, obese Psych: nl mood/affect Head: normocephalic, rash/redness on face Respiratory: clear to auscultation, normal air movement Cardiovascular: regular rate and rhythm Gastrointestinal: soft, non-tender Musculoskeletal: swelling (rle) Neurological: CLASSIFICATION OFFICER II-XII intact, nl mental status, nl speech Skin: other (compression dressing cdi rle ) Results Results 24hrs Laboratory Tests Test 07/24/18 11:38 07/24/18 17:24 07/24/18 21:09 07/25/18 05:15 Bedside Glucose 112 105 119 White Blood Count 6.5 Red Blood Count 4.30 L Hemoglobin 12.2 L Hematocrit 37.8 L Mean Corpuscular 87.9 Volume Mean Corpuscular 28.4 L Hemoglobin Mean Corpuscular 32.3 Hemoglobin Concent Red Cell 13.2 Distribution Width Platelet Count 198 Mean Platelet Volume 9.2 Immature 0.900 H Granulocytes % Neutrophils % 55.4 Lymphocytes % 28.4 Monocytes % 11.6 H Eosinophils % 2.8 Basophils % 0.9 Nucleated Red Blood 0.0 Cells % Immature 0.060 H Granulocytes # Neutrophils # 3.6 Lymphocytes # 1.8 Monocytes # 0.8 Eosinophils # 0.2 Basophils # 0.1 Nucleated Red Blood 0.0 Cells # Sodium Level 140 Potassium Level 4.3 Chloride Level 104 Carbon Dioxide Level 29 Anion Gap 7 Blood Urea Nitrogen 25 H Creatinine 1.15 Est Glomerular > 60 Filtrat Rate mL/min Glucose Level 120 Calcium Level 9.1 Test 07/25/18 08:18 Bedside Glucose 110 Medications Medication Current Medications IV Flush (NS 3 ml) 3 ml PER PROTOCOL IV ; Start 07/20/18 at 11:30 Ondansetron HCl (Zofran Inj) 4 mg Q6H PRN IV NAUSEA/VOMITING; Start 07/20/18 at 11:30 Acetaminophen (Tylenol Tab) 650 mg Q6H PRN PO .PAIN 1-3 OR TEMP Last administered on 07/24/18at 06:22; Admin Dose 650 MG; Start 07/20/18 at 11:30 Acetaminophen/ Hydrocodone Bitart ([place] (5/325)) 1 tab Q6H PRN PO .PAIN 4-6; Start 07/20/18 at 11:30 Hydrochlorothiazide (Hydrochlorothiazide) 12.5 mg DAILY PO Last administered on 07/25/18at 08:39; Admin Dose 12.5 MG; Start 07/21/18 at 09:00 Metformin HCl (Glucophage) 500 mg WITH BREAKFAST DINNE PO Last administered on 07/25/18at 08:39; Admin Dose 500 MG; Start 07/20/18 at 18:00 Rivaroxaban (Xarelto) 20 mg WITH DINNER PO Last administered on 07/24/18at 17:24; Admin Dose 20 MG; Start 07/20/18 at 18:00 Miscellaneous Information 1 ea NOTE XX ; Start 07/20/18 at 12:00 Glucose (Glutose) 15 gm Q15M PRN PO DECREASED GLUCOSE; Start 07/20/18 at 12:00 Glucose (Glutose) 22.5 gm Q15M PRN PO DECREASED GLUCOSE; Start 07/20/18 at 12:00 Dextrose (D50w Syringe) 25 ml Q15M PRN IV DECREASED GLUCOSE; Start 07/20/18 at 12:00 Dextrose (D50w Syringe) 50 ml Q15M PRN IV DECREASED GLUCOSE; Start 07/20/18 at 12:00 Glucagon (Glucagen) 1 mg Q15M PRN IM DECREASED GLUCOSE; Start 07/20/18 at 12:00 Glucose (Glutose) 15 gm Q15M PRN BUCCAL DECREASED GLUCOSE; Start 07/20/18 at 12:00 Insulin Aspart (Novolog Insulin Pen) NOVOLOG *MILD* ALGORITHM WITH MEALS BEDTIME SC ; Start 07/20/18 at 18:00 Fluocinonide (Lidex 0.05% Cr) 1 applic BID TOP Last administered on 07/22/18 08:32; Admin Dose 1 APPLIC; Start 07/21/18 at 09:30 Sodium Hypochlorite (Dakins Diluted ()) 1 applic BID TP Last administered on 07/22/18 08:31; Admin Dose 1 APPLIC; Start 07/21/18 at 11:30 Morphine Sulfate (morphine) 4 mg Q6H PRN IV SEVERE PAIN LEVEL 7-10 Last administered on 07/24/18at 19:41; Admin Dose 4 MG; Start 07/21/18 at 17:00 Doxycycline Hyclate (Vibramycin) 100 mg BID PO Last administered on 07/25/18at 08:39; Admin Dose 100 MG; Start 07/23/18 at 21:00 Diphenhydramine HCl (Benadryl) 25 mg Q6H PRN IV ITCHING; Start 07/25/18 at 11:00 ESTELA ESCOTO NP Jul 25, 2018 11:04
--- NOTE | 2018-07-25 13:35 | CONS ---
Assessment/Plan Assessment/Plan Hospital Course (Demo Recall) Patient had been having facial erythema and rash that got worse today after he got metformin, doxycycline and hydrochlorothiazide this morning. He reports of having seborrheic dermatitis. He does not have any itchiness now and no other areas of erythema or rash on his body. He is in no distress afebrile no nausea vomiting diarrhea no swallowing difficulties. He is not allergic to any ant ibiotics Antimicrobials: Doxycycline Microbiology: Wound cultures previous admission grew Enterobacter and coag negative staph species PHYSICAL EXAMINATION: GENERAL: This is obese, well-developed, elderly man who is alert, in no distress. HEENT: Head atraumatic, normocephalic. Sclerae anicteric. Buccal mucosa pink. NECK: Supple. CHEST: Rise symmetrical. Breath sounds clear. HEART: S1, S2. ABDOMEN: Obese, soft. Bowel tones present. EXTREMITIES: Right lower extremity wrapped Assessment: 1. Right lower extremity acute on chronic cellulitis 2. Bilateral lower extremities chronic venous stasis 3. Diabetes 4. Hx RLE DVT Plan: Clinically unchanged and overall stable, doubt that this is allergic reaction as patient has a history of seborrheic dermatitis on his face. We will start him on long-acting antihistamines and prednisone cream, continue on current antibiotics. I advised patient that if his symptoms becomes worse to notify RN and we will stop doxycycline Consultation Date/Type/Reason Admit Date/Time Jul 20, 2018 at 10:28 Initial Consult Date Type of Consult id Date/Time of Note DATE: 07/25/18 TIME: 13:33 Exam/Review of Systems Exam Vitals Vital Signs Date Temp Pulse Resp B/P (MAP) Pulse Ox O2 O2 Flow FiO2 Time Delivery Rate 07/25/18 98.2 55 18 135/73 97 Room Air 07:55 (93) Intake and Output 07/24/18 07/24/18 07/25/18 1515:00 23:00 07:00 IntakeIntake Total 940 ml 540 ml BalanceBalance 940 ml 540 ml Results Result Diagram: 07/25/18 0515 07/25/18 0515 Results 24hrs Laboratory Tests Test 07/24/18 17:24 07/24/18 21:09 07/25/18 05:15 07/25/18 08:18 Bedside Glucose 105 119 110 White Blood Count 6.5 Red Blood Count 4.30 L Hemoglobin 12.2 L Hematocrit 37.8 L Mean Corpuscular 87.9 Volume Mean Corpuscular 28.4 L Hemoglobin Mean Corpuscular 32.3 Hemoglobin Concent Red Cell 13.2 Distribution Width Platelet Count 198 Mean Platelet Volume 9.2 Immature 0.900 H Granulocytes % Neutrophils % 55.4 Lymphocytes % 28.4 Monocytes % 11.6 H Eosinophils % 2.8 Basophils % 0.9 Nucleated Red Blood 0.0 Cells % Immature 0.060 H Granulocytes # Neutrophils # 3.6 Lymphocytes # 1.8 Monocytes # 0.8 Eosinophils # 0.2 Basophils # 0.1 Nucleated Red Blood 0.0 Cells # Sodium Level 140 Potassium Level 4.3 Chloride Level 104 Carbon Dioxide Level 29 Anion Gap 7 Blood Urea Nitrogen 25 H Creatinine 1.15 Est Glomerular > 60 Filtrat Rate mL/min Glucose Level 120 Calcium Level 9.1 Test 07/25/18 11:34 Bedside Glucose 112 Medications Medication Current Medications IV Flush (NS 3 ml) 3 ml PER PROTOCOL IV ; Start 07/20/18 at 11:30 Ondansetron HCl (Zofran Inj) 4 mg Q6H PRN IV NAUSEA/VOMITING; Start 07/20/18 at 11:30 Acetaminophen (Tylenol Tab) 650 mg Q6H PRN PO .PAIN 1-3 OR TEMP Last administered on 07/24/18at 06:22; Admin Dose 650 MG; Start 07/20/18 at 11:30 Acetaminophen/ Hydrocodone Bitart ([place] (5/325)) 1 tab Q6H PRN PO .PAIN 4-6; Start 07/20/18 at 11:30 Hydrochlorothiazide (Hydrochlorothiazide) 12.5 mg DAILY PO Last administered on 07/25/18at 08:39; Admin Dose 12.5 MG; Start 07/21/18 at 09:00 Metformin HCl (Glucophage) 500 mg WITH BREAKFAST DINNE PO Last administered on 07/25/18at 08:39; Admin Dose 500 MG; Start 07/20/18 at 18:00 Rivaroxaban (Xarelto) 20 mg WITH DINNER PO Last administered on 07/24/18at 17:24; Admin Dose 20 MG; Start 07/20/18 at 18:00 Miscellaneous Information 1 ea NOTE XX ; Start 07/20/18 at 12:00 Glucose (Glutose) 15 gm Q15M PRN PO DECREASED GLUCOSE; Start 07/20/18 at 12:00 Glucose (Glutose) 22.5 gm Q15M PRN PO DECREASED GLUCOSE; Start 07/20/18 at 12:00 Dextrose (D50w Syringe) 25 ml Q15M PRN IV DECREASED GLUCOSE; Start 07/20/18 at 12:00 Dextrose (D50w Syringe) 50 ml Q15M PRN IV DECREASED GLUCOSE; Start 07/20/18 at 12:00 Glucagon (Glucagen) 1 mg Q15M PRN IM DECREASED GLUCOSE; Start 07/20/18 at 12:00 Glucose (Glutose) 15 gm Q15M PRN BUCCAL DECREASED GLUCOSE; Start 07/20/18 at 12:00 Insulin Aspart (Novolog Insulin Pen) NOVOLOG *MILD* ALGORITHM WITH MEALS BEDTIME SC ; Start 07/20/18 at 18:00 Fluocinonide (Lidex 0.05% Cr) 1 applic BID TOP Last administered on 07/22/18 08:32; Admin Dose 1 APPLIC; Start 07/21/18 at 09:30 Sodium Hypochlorite (Dakins Diluted (40)) 1 applic BID TP Last administered on 07/22/18 08:31; Admin Dose 1 APPLIC; Start 07/21/18 at 11:30 Morphine Sulfate (morphine) 4 mg Q6H PRN IV SEVERE PAIN LEVEL 7-10 Last administered on 07/24/18at 19:41; Admin Dose 4 MG; Start 07/21/18 at 17:00 Doxycycline Hyclate (Vibramycin) 100 mg BID PO Last administered on 07/25/18at 08:39; Admin Dose 100 MG; Start 07/23/18 at 21:00 Diphenhydramine HCl (Benadryl) 25 mg Q6H PRN IV ITCHING Last administered on 07/25/18at 11:28; Admin Dose 25 MG; Start 07/25/18 at 11:00 GREGORY BAPTISTE NP Jul 25, 2018 13:35
[2018-07-25 14:29] VITALS: BP 115/59; PULSE 58; RESP 18
[2018-07-25] MEDS: TRIAMCINOLONE ACET 0.1% 15 GM CR TOP SCH ×2 (16:52→21:12)
[2018-07-25] MEDS: LORATADINE 10 MG TAB PO SCH (16:52)
[2018-07-25] MEDS: RIVAROXABAN 20 MG TABLET PO SCH (17:10)
[2018-07-25 20:00] VITALS: BP 146/84; PULSE 62; RESP 18
[2018-07-25] MEDS: morphine 4 MG/ML VIAL IV PRN (21:11)
[2018-07-26 02:00] VITALS: BP 134/73; PULSE 72; RESP 18
[2018-07-26] MEDS: TRIAMCINOLONE ACET 0.1% 15 GM CR TOP SCH ×2 (07:55→21:00)
[2018-07-26] MEDS: DAKINS 0.0125%(1/40) 473 ML SOLUTION TP SCH ×2 (07:56→21:00)
[2018-07-26] MEDS: INSULIN ASPART [NOVOLOG] 3 ML PEN SC SCH ×4 (07:56→21:00)
[2018-07-26] MEDS: FLUOCINONIDE 0.05% 15 GM CR TOP SCH ×2 (07:56→21:00)
[2018-07-26] MEDS: metFORMIN 500 MG TAB PO SCH ×2 (07:56→17:31)
[2018-07-26] MEDS: DOXYCYCLINE 100 MG TAB PO SCH ×2 (07:57→21:00)
[2018-07-26] MEDS: LORATADINE 10 MG TAB PO SCH (07:57)
[2018-07-26] MEDS: HYDROCHLOROTHIAZIDE 12.5 MG CAP PO SCH (07:57)
[2018-07-26 08:00] VITALS: BP 133/84; PULSE 54; RESP 17
--- NOTE | 2018-07-26 12:13 | PN ---
Date/Time of Note Date/Time of Note DATE: 07/26/18 TIME: 12:05 Assessment/Plan VTE Prophylaxis [place] [facility] [place] risk: 7 SCD applied (from [facility] [place] No SCD contraindicated: other Pharmacological prophylaxis: rivaroxaban Lines/Catheters IV Catheter Type (from [facility] [place] Urinary Cath still in place: No Assessment/Plan Hospital Course Assessment and plan 1. Infected right lower extremity venous stasis ulcer/cellulitis. - continue abx - podiatry following - final cultures: WOUND CULTURE Final Organism 1 COAGULASE NEGATIVE STAPH QUANTITY 1+ Organism 2 CORYNEBACTERIUM SPECIES QUANTITY SCANT GROWTH 2. 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 Diabetes. -HbA1c is 6.5. -Continue insulin regimen 4. Hypertension -Continue antihypertensives. Adjust as needed. 5. Obesity. -Weight reduction was advised 6. Anemia -Monitor H&H. Trances blood products as needed. 7. facial urticaria - improved - antihistamine prn Disposition plan. . Case management was consulted to assist with authorization for outpatient follow-up with [facility] center. Continue supportive care for now. Plan to transition to outpatient once appropriate outpatient resources are set up . Monitor labs prn Discussed plan of care with Dr. Munoz Result Diagram: 07/26/18 0508 07/26/18 0508 Results 24hrs Laboratory Tests Test 07/25/18 17:09 07/25/18 21:01 07/26/18 05:08 07/26/18 07:55 Bedside Glucose 110 101 110 White Blood Count 6.4 Red Blood Count 4.50 L Hemoglobin 12.8 L Hematocrit 39.5 L Mean Corpuscular 87.8 Volume Mean Corpuscular 28.4 L Hemoglobin Mean Corpuscular 32.4 Hemoglobin Concent Red Cell 13.2 Distribution Width Platelet Count 207 Mean Platelet Volume 9.3 Immature 1.100 H Granulocytes % Neutrophils % 51.8 Lymphocytes % 32.5 Monocytes % 10.1 Eosinophils % 3.3 Basophils % 1.2 Nucleated Red Blood 0.0 Cells % Immature 0.070 H Granulocytes # Neutrophils # 3.3 Lymphocytes # 2.1 Monocytes # 0.7 Eosinophils # 0.2 Basophils # 0.1 Nucleated Red Blood 0.0 Cells # Sodium Level 140 Potassium Level 4.1 Chloride Level 108 Carbon Dioxide Level 20 L Anion Gap 12 Blood Urea Nitrogen 30 H Creatinine 1.10 Est Glomerular > 60 Filtrat Rate mL/min Glucose Level 114 Calcium Level 9.4 Subjective 24 Hr Interval Summary Free Text/Dictation no complaints, comfortable. reports no redness on face now Exam/Review of Systems Exam Vitals Vital Signs Date Temp Pulse Resp B/P (MAP) Pulse Ox O2 O2 Flow FiO2 Time Delivery Rate 07/26/18 98.1 54 17 133/84 95 08:00 (100) 07/26/18 Room Air 02:00 Intake and Output 07/25/18 07/25/18 07/26/18 1515:00 23:00 07:00 IntakeIntake Total 360 ml 840 ml BalanceBalance 360 ml 840 ml Exam Constitutional: alert, oriented, obese Psych: nl mood/affect Head: normocephalic, rash/redness on face Respiratory: clear to auscultation, normal air movement Cardiovascular: regular rate and rhythm Gastrointestinal: soft, non-tender Musculoskeletal: swelling (rle) Neurological: [employer] II-XII intact, nl mental status, nl speech Skin: other (compression dressing cdi rle ) Results Results 24hrs Laboratory Tests Test 07/25/18 17:09 07/25/18 21:01 07/26/18 05:08 07/26/18 07:55 Bedside Glucose 110 101 110 White Blood Count 6.4 Red Blood Count 4.50 L Hemoglobin 12.8 L Hematocrit 39.5 L Mean Corpuscular 87.8 Volume Mean Corpuscular 28.4 L Hemoglobin Mean Corpuscular 32.4 Hemoglobin Concent Red Cell 13.2 Distribution Width Platelet Count 207 Mean Platelet Volume 9.3 Immature 1.100 H Granulocytes % Neutrophils % 51.8 Lymphocytes % 32.5 Monocytes % 10.1 Eosinophils % 3.3 Basophils % 1.2 Nucleated Red Blood 0.0 Cells % Immature 0.070 H Granulocytes # Neutrophils # 3.3 Lymphocytes # 2.1 Monocytes # 0.7 Eosinophils # 0.2 Basophils # 0.1 Nucleated Red Blood 0.0 Cells # Sodium Level 140 Potassium Level 4.1 Chloride Level 108 Carbon Dioxide Level 20 L Anion Gap 12 Blood Urea Nitrogen 30 H Creatinine 1.10 Est Glomerular > 60 Filtrat Rate mL/min Glucose Level 114 Calcium Level 9.4 Medications Medication Current Medications IV Flush (NS 3 ml) 3 ml PER PROTOCOL IV ; Start 07/20/18 at 11:30 Ondansetron HCl (Zofran Inj) 4 mg Q6H PRN IV NAUSEA/VOMITING; Start 07/20/18 at 11:30 Acetaminophen (Tylenol Tab) 650 mg Q6H PRN PO .PAIN 1-3 OR TEMP Last administered on 07/24/18at 06:22; Admin Dose 650 MG; Start 07/20/18 at 11:30 Acetaminophen/ Hydrocodone Bitart ([place] (5/325)) 1 tab Q6H PRN PO .PAIN 4-6; Start 07/20/18 at 11:30 Hydrochlorothiazide (Hydrochlorothiazide) 12.5 mg DAILY PO Last administered on 07/25/18at 08:39; Admin Dose 12.5 MG; Start 07/21/18 at 09:00 Metformin HCl (Glucophage) 500 mg WITH BREAKFAST DINNE PO Last administered on 07/26/18at 07:56; Admin Dose 500 MG; Start 07/20/18 at 18:00 Rivaroxaban (Xarelto) 20 mg WITH DINNER PO Last administered on 07/25/18at 17:10; Admin Dose 20 MG; Start 07/20/18 at 18:00 Miscellaneous Information 1 ea NOTE XX ; Start 07/20/18 at 12:00 Glucose (Glutose) 15 gm Q15M PRN PO DECREASED GLUCOSE; Start 07/20/18 at 12:00 Glucose (Glutose) 22.5 gm Q15M PRN PO DECREASED GLUCOSE; Start 07/20/18 at 12:00 Dextrose (D50w Syringe) 25 ml Q15M PRN IV DECREASED GLUCOSE; Start 07/20/18 at 12:00 Dextrose (D50w Syringe) 50 ml Q15M PRN IV DECREASED GLUCOSE; Start 07/20/18 at 12:00 Glucagon (Glucagen) 1 mg Q15M PRN IM DECREASED GLUCOSE; Start 07/20/18 at 12:00 Glucose (Glutose) 15 gm Q15M PRN BUCCAL DECREASED GLUCOSE; Start 07/20/18 at 12:00 Insulin Aspart (Novolog Insulin Pen) NOVOLOG *MILD* ALGORITHM WITH MEALS BEDTIME SC ; Start 07/20/18 at 18:00 Fluocinonide (Lidex 0.05% Cr) 1 applic BID TOP Last administered on 07/22/18 08:32; Admin Dose 1 APPLIC; Start 07/21/18 at 09:30 Sodium Hypochlorite (Dakins Diluted ()) 1 applic BID TP Last administered on 07/22/18 08:31; Admin Dose 1 APPLIC; Start 07/21/18 at 11:30 Morphine Sulfate (morphine) 4 mg Q6H PRN IV SEVERE PAIN LEVEL 7-10 Last administered on 07/25/18 21:11; Admin Dose 4 MG; Start 07/21/18 at 17:00 Doxycycline Hyclate (Vibramycin) 100 mg BID PO Last administered on 07/26/18 07:57; Admin Dose 100 MG; Start 07/23/18 at 21:00 Diphenhydramine HCl (Benadryl) 25 mg Q6H PRN IV ITCHING Last administered on 07/25/18 11:28; Admin Dose 25 MG; Start 07/25/18 at 11:00 Loratadine (Claritin) 10 mg DAILY PO Last administered on 07/26/18 07:57; Admin Dose 10 MG; Start 07/25/18 at 14:00 Triamcinolone Acetonide (Kenalog 0.1% Cr) 1 applic BID TOP Last administered on 07/26/18 07:55; Admin Dose 1 APPLIC; Start 07/25/18 at 15:30 ESTELA ESCOTO NP Jul 26, 2018 12:13
--- NOTE | 2018-07-26 13:36 | CONS ---
Assessment/Plan Assessment/Plan Hospital Course (Demo Recall) Doing well. Facial erythema resolved. No fevers Antimicrobials: Doxycycline Microbiology: Wound cultures previous admission grew Enterobacter and coag negative staph species PHYSICAL EXAMINATION: GENERAL: This is obese, well-developed, elderly man who is alert, in no distress. HEENT: Head atraumatic, normocephalic. Sclerae anicteric. Buccal mucosa pink. NECK: Supple. CHEST: Rise symmetrical. Breath sounds clear. HEART: S1, S2. ABDOMEN: Obese, soft. Bowel tones present. EXTREMITIES: Right lower extremity wrapped Assessment: 1. Right lower extremity acute on chronic cellulitis 2. Bilateral lower extremities chronic venous stasis 3. Diabetes 4. Hx RLE DVT 5. Seborrheic dermatitis of the face Plan: Patient is stable, continue present care, anticipate discharge on oral doxycycline for 5 more days Consultation Date/Type/Reason Admit Date/Time Jul 20, 2018 at 10:28 Initial Consult Date Type of Consult id Date/Time of Note DATE: 07/26/18 TIME: 13:35 Exam/Review of Systems Exam Vitals Vital Signs Date Temp Pulse Resp B/P (MAP) Pulse Ox O2 O2 Flow FiO2 Time Delivery Rate 07/26/18 98.1 54 17 133/84 95 08:00 (100) 07/26/18 Room Air 02:00 Intake and Output 07/25/18 07/25/18 07/26/18 1515:00 23:00 07:00 IntakeIntake Total 360 ml 840 ml BalanceBalance 360 ml 840 ml Results Result Diagram: 07/26/18 0508 07/26/18 0508 Results 24hrs Laboratory Tests Test 07/25/18 17:09 07/25/18 21:01 07/26/18 05:08 07/26/18 07:55 Bedside Glucose 110 101 110 White Blood Count 6.4 Red Blood Count 4.50 L Hemoglobin 12.8 L Hematocrit 39.5 L Mean Corpuscular 87.8 Volume Mean Corpuscular 28.4 L Hemoglobin Mean Corpuscular 32.4 Hemoglobin Concent Red Cell 13.2 Distribution Width Platelet Count 207 Mean Platelet Volume 9.3 Immature 1.100 H Granulocytes % Neutrophils % 51.8 Lymphocytes % 32.5 Monocytes % 10.1 Eosinophils % 3.3 Basophils % 1.2 Nucleated Red Blood 0.0 Cells % Immature 0.070 H Granulocytes # Neutrophils # 3.3 Lymphocytes # 2.1 Monocytes # 0.7 Eosinophils # 0.2 Basophils # 0.1 Nucleated Red Blood 0.0 Cells # Sodium Level 140 Potassium Level 4.1 Chloride Level 108 Carbon Dioxide Level 20 L Anion Gap 12 Blood Urea Nitrogen 30 H Creatinine 1.10 Est Glomerular > 60 Filtrat Rate mL/min Glucose Level 114 Calcium Level 9.4 Test 07/26/18 12:53 Bedside Glucose 104 Medications Medication Current Medications IV Flush (NS 3 ml) 3 ml PER PROTOCOL IV ; Start 07/20/18 at 11:30 Ondansetron HCl (Zofran Inj) 4 mg Q6H PRN IV NAUSEA/VOMITING; Start 07/20/18 at 11:30 Acetaminophen (Tylenol Tab) 650 mg Q6H PRN PO .PAIN 1-3 OR TEMP Last administered on 07/24/18at 06:22; Admin Dose 650 MG; Start 07/20/18 at 11:30 Acetaminophen/ Hydrocodone Bitart ([place] (5/325)) 1 tab Q6H PRN PO .PAIN 4-6; Start 07/20/18 at 11:30 Hydrochlorothiazide (Hydrochlorothiazide) 12.5 mg DAILY PO Last administered on 07/25/18at 08:39; Admin Dose 12.5 MG; Start 07/21/18 at 09:00 Metformin HCl (Glucophage) 500 mg WITH BREAKFAST DINNE PO Last administered on 07/26/18at 07:56; Admin Dose 500 MG; Start 07/20/18 at 18:00 Rivaroxaban (Xarelto) 20 mg WITH DINNER PO Last administered on 07/25/18at 17:10; Admin Dose 20 MG; Start 07/20/18 at 18:00 Miscellaneous Information 1 ea NOTE XX ; Start 07/20/18 at 12:00 Glucose (Glutose) 15 gm Q15M PRN PO DECREASED GLUCOSE; Start 07/20/18 at 12:00 Glucose (Glutose) 22.5 gm Q15M PRN PO DECREASED GLUCOSE; Start 07/20/18 at 12:00 Dextrose (D50w Syringe) 25 ml Q15M PRN IV DECREASED GLUCOSE; Start 07/20/18 at 12:00 Dextrose (D50w Syringe) 50 ml Q15M PRN IV DECREASED GLUCOSE; Start 07/20/18 at 12:00 Glucagon (Glucagen) 1 mg Q15M PRN IM DECREASED GLUCOSE; Start 07/20/18 at 12:00 Glucose (Glutose) 15 gm Q15M PRN BUCCAL DECREASED GLUCOSE; Start 07/20/18 at 12:00 Insulin Aspart (Novolog Insulin Pen) NOVOLOG *MILD* ALGORITHM WITH MEALS BEDTIME SC ; Start 07/20/18 at 18:00 Fluocinonide (Lidex 0.05% Cr) 1 applic BID TOP Last administered on 07/22/18at 08:32; Admin Dose 1 APPLIC; Start 07/21/18 at 09:30 Sodium Hypochlorite (Dakins Diluted ()) 1 applic BID TP Last administered on 07/22/18 08:31; Admin Dose 1 APPLIC; Start 07/21/18 at 11:30 Morphine Sulfate (morphine) 4 mg Q6H PRN IV SEVERE PAIN LEVEL 7-10 Last administered on 07/25/18 21:11; Admin Dose 4 MG; Start 07/21/18 at 17:00 Doxycycline Hyclate (Vibramycin) 100 mg BID PO Last administered on 07/26/18 07:57; Admin Dose 100 MG; Start 07/23/18 at 21:00 Diphenhydramine HCl (Benadryl) 25 mg Q6H PRN IV ITCHING Last administered on 07/25/18 11:28; Admin Dose 25 MG; Start 07/25/18 at 11:00 Loratadine (Claritin) 10 mg DAILY PO Last administered on 07/26/18 07:57; Admin Dose 10 MG; Start 07/25/18 at 14:00 Triamcinolone Acetonide (Kenalog 0.1% Cr) 1 applic BID TOP Last administered on 07/26/18 07:55; Admin Dose 1 APPLIC; Start 07/25/18 at 15:30 GREGORY BAPTISTE NP Jul 26, 2018 13:36
[2018-07-26 15:20] VITALS: BP 137/93; PULSE 56; RESP 19
[2018-07-26] MEDS: RIVAROXABAN 20 MG TABLET PO SCH (17:31)
[2018-07-26 20:16] VITALS: BP 136/82; PULSE 61; RESP 18
[2018-07-27 02:07] VITALS: BP 114/59; PULSE 65; RESP 18
[2018-07-27] MEDS: INSULIN ASPART [NOVOLOG] 3 ML PEN SC SCH ×2 (08:00→12:00)
[2018-07-27] MEDS: metFORMIN 500 MG TAB PO SCH (08:31)
[2018-07-27] MEDS: DOXYCYCLINE 100 MG TAB PO SCH (08:31)
[2018-07-27] MEDS: LORATADINE 10 MG TAB PO SCH (08:31)
[2018-07-27] MEDS: FLUOCINONIDE 0.05% 15 GM CR TOP SCH (08:32)
[2018-07-27] MEDS: DAKINS 0.0125%(1/40) 473 ML SOLUTION TP SCH (08:32)
[2018-07-27] MEDS: HYDROCHLOROTHIAZIDE 12.5 MG CAP PO SCH (08:33)
[2018-07-27 08:34] VITALS: BP 144/84; PULSE 60; RESP 20
[2018-07-27] MEDS: TRIAMCINOLONE ACET 0.1% 15 GM CR TOP SCH (08:34)
[2018-07-27] MEDS ORDERED: DOXY100T2 PO (09:01)
--- NOTE | 2018-07-27 09:05 | PDOCDIS ---
Discharge Instructions DIAGNOSIS Discharge Diagnosis 1. Infected right lower extremity venous stasis ulcer/cellulitis. 2. DVT of right mid distal superficial femoral artery and popliteal veins 3. Diabetes. -HbA1c is 6.5. 4. Hypertension 5. Obesity. 6. Anemia 7. facial urticaria CONDITION [id number] Patient Condition: [id number] Stable FOLLOW UP/APPOINTMENTS Follow-up Plan 1.Call to make an appointment and follow up at the amputation prevention center ([facility]) at [facility] 07.29.18 2. Follow up with Dr. Gil Friedman in one week Office Address [facility] [address] [place] [address] Office ESTELA ESCOTO NP Jul 27, 2018 09:05
--- NOTE | 2018-07-27 10:49 | DS ---
Date/Time of Note Date/Time of Note DATE: 07/27/18 TIME: 10:48 Discharge Summary Admission/Discharge Info Admit Date/Time Jul 20, 2018 at 10:28 Discharge Date/Time Discharge Diagnosis 1. Infected right lower extremity venous stasis ulcer/cellulitis. 2. DVT of right mid distal superficial femoral artery and popliteal veins 3. Diabetes. -HbA1c is 6.5. 4. Hypertension 5. Obesity. 6. Anemia 7. facial urticaria Patient Condition: Stable Hospital Course This is a 62 male is with history of hypertension, diabetes, right lower extremity DVT, obesity, infection on right lower extremity, who came to the hospital for right lower extremity wound. Patient finished 2 weeks of antimicrobial therapy as outpatient and was supposed to follow-up at amputation prevention center at [facility] but due to insurance issues was unable to go to appointment. Patient thereafter progressively started to have wound on the right lower extremity get worse with edema and redness and weeping. As such she was brought to the hospital. He denies any fevers. Patient of note is homeless and lives in his car. Therefore he has been unable to elevate his lower extremity as recommended. He underwent bilateral lower extremity Doppler that was showing deep venous thrombus on the right to distal superficial femoral and popliteal veins. He is on Xarelto for this at home. He was seen by infectious disease physician while in-house and placed on appropriate antibiotics. We did resume him on Xarelto for DVT on right mid distal superficial femoral artery and popliteal veins. His A1c was 6.5 and we did continue his insulin while in-house. He was resumed on antihypertensives for high blood pressure and was advised for weight reduction for his obesity. He did have episode of facial urticaria which did improve with antihistamine. The plan of care was discussed with the patient and patient verbalizes understanding. On the day of discharge patient was in stable condition Discussed POC with Dr. Robles [place] Meds Active Scripts Doxycycline* (Vibramycin*) 100 Mg Tab, 100 MG PO BID, #10 TAB Prov:ESTELA ESCOTO CONTINUING EDUCATION SPECIALIST 07/27/18 Reported Medications Metformin Hcl* (Metformin Hcl*) 500 Mg Tablet, 500 MG PO WITH BREAKFAST DINNE, #60 TAB 06/26/18 Hydrochlorothiazide* (Hydrochlorothiazide*) 12.5 Mg Tablet, 12.5 MG PO DAILY, #30 TAB 06/26/18 Rivaroxaban* (Xarelto*) 20 Mg Tablet, 20 MG PO WITH DINNER, TAB 06/26/18 Discontinued Scripts Doxycycline Hyclate* (Doxycycline Hyclate*) 100 Mg Tablet., 100 MG PO BID, #28 TAB If co-pay for doxycycline is high/insurance does not pay, substitute with Bactrim DS 1 tab twice daily x14 days Prov:JIANG,MARIALUISA V. CONTINUING EDUCATION SPECIALIST 07/02/18 Levofloxacin* (Levaquin*) 750 Mg Tablet, 750 MG PO DAILY, #14 TAB Prov:JIANGJANEA V. CONTINUING EDUCATION SPECIALIST 07/02/18 Follow-up Plan 1.Call to make an appointment and follow up at the amputation prevention center ([facility]) at [facility] 07.29.18 2. Follow up with Dr. Gil Friedman in one week Office Address [facility] [address] [place] [address] Office Primary Care Provider Not On Staff Doctor Time spent on discharge: > 30 minutes Pending Labs Laboratory Tests Test 07/26/18 12:53 07/26/18 17:31 07/26/18 21:55 07/27/18 05:26 Bedside 104 101 100 Glucose mg/dL (70-220) mg/dL (70-220) mg/dL (70-220) White Blood 6.5 Count 10^3/ul (4.8-1 0.8) Red Blood 4.66 Count 10^6/ul (4.70- 6.10) Hemoglobin 13.4 g/dl (14.0-18. 0) Hematocrit 39.9 % (42.0-52.0) Mean 85.6 Corpuscular fl (82.0-101.0 Volume ) Mean 28.8 Corpuscular pg (29.0-33.0) Hemoglobin Mean 33.6 Corpuscular g/dl (32.0-37. Hemoglobin Conc 0) ent Red Cell 13.3 Distribution % (11.5-14.5) Width Platelet Count 224 10^3/UL (140-4 15) Mean Platelet 9.3 Volume fl (7.4-10.4) Immature 1.500 Granulocytes % % (0.001-0.429 ) Neutrophils % 55.2 % (39.0-77.0) Lymphocytes % 30.3 % (15.0-51.0) Monocytes % 9.0 % (0.0-11.0) Eosinophils % 3.1 % (0.0-7.0) Basophils % 0.9 % (0.0-2.0) Nucleated Red 0.0 Blood Cells % /100WBC (0.0-0 .0) Immature 0.100 Granulocytes # 10^3/ul (0.0-0 .031) Neutrophils # 3.6 10^3/ul (1.6-7 .5) Lymphocytes # 2.0 10^3/ul (0.8-2 .9) Monocytes # 0.6 10^3/ul (0.3-0 .9) Eosinophils # 0.2 10^3/ul (0.0-0 .5) Basophils # 0.1 10^3/ul (0.0-0 .1) Nucleated Red 0.0 Blood Cells # 10^3/ul (0.0-0 .0) Sodium Level 141 mmol/L (135-14 4) Potassium 4.0 Level mmol/L (3.5-5. 1) Chloride Level 107 mmol/L (97-110 ) Carbon Dioxide 23 Level mmol/L (21-31) Anion Gap 11 (5-13) Blood Urea 31 Nitrogen mg/dl (7-20) Creatinine 1.12 mg/dl (0.61-1. 24) Est Glomerular > 60 Filtrat mL/min (>60) Rate mL/min Glucose Level 118 mg/dl (70-220) Calcium Level 9.5 mg/dl (8.4-10. 2) Test 07/27/18 08:07 Bedside 133 Glucose mg/dL (70-220) ESTELA ESCOTO NP Jul 27, 2018 10:49
[2018-07-27 14:21] VITALS: BP 154/100; PULSE 75; RESP 20
== END 2018-07-27 14:25 | disposition home or self-care (01) | DRG 300 ==
LOC: E/R 06:38 → 2NE 09:58 → OBSVTOIN 10:28 → 2NE 07-24 05:44
PROVIDERS: ADMIT Internal Medicine; ATTEND Internal Medicine
DX: I83.218 Varicose veins of right lower extremity with both ulcer of other part of lower extremity and inflammation (principal); I82.431 Acute embolism and thrombosis of right popliteal vein; L97.819 Non-pressure chronic ulcer of other part of right lower leg with unspecified severity; I87.011 Postthrombotic syndrome with ulcer of right lower extremity; E11.9 Type 2 diabetes mellitus without complications; I10 Essential (primary) hypertension; L50.9 Urticaria, unspecified; L85.3 Xerosis cutis; E66.9 Obesity, unspecified; D63.8 Anemia in other chronic diseases classified elsewhere; Z68.36 Body mass index [BMI] 36.0-36.9, adult; Z59.0 Homelessness; Z79.02 Long term (current) use of antithrombotics/antiplatelets
CPT/HCPCS: 73030; 80048; 80053; 80061; 80202; 80307; 81001; 82306; 82652; 82728; 82962; 83036; 83540; 83735; 83880; 84100; 84484; 85025; 85610; 85651; 85730; 86140; 87070; 87081; 87086; 93005; 93922; 93970; 96365; 96366; 96367; 96375; 96376; G0378; J0692; J1170; J1200; J1815; J2270; J2405; J2543; J3370; J7040

== ENCOUNTER 2018-08-04 02:35 | Emergency (ER) | payer OTHER ==
[~2018-08-04] VITALS: Ht 182.9 cm; Wt 106.4 kg
[~2018-08-04 02:35] MED LIST changes: +DOXY100T2 PO; -DOXY100T20 PO; -LEVO750T25 PO
[2018-08-04 02:41] VITALS: Ht 182.9 cm; Wt 106.4 kg
--- NOTE | 2018-08-04 02:58 | ERD ---
ER Documentation Chief Complaint Chief Complaint cough x 1 week HPI 63-year-old man complaining of purulent sputum cough x1 week. He denies other URI symptoms denies chest pain or shortness of breath, no fevers or chills, no vomiting or diarrhea. Patient does have a history of DVT and uses anticoagulation. ROS All systems reviewed and are negative except as per history of present illness. Medications Home Meds Active Scripts Azithromycin* (Zithromax*) 250 Mg Tablet, 250 MG PO .ZPACK DIRECTED for 5 Days, #6 TAB TAKE 500 MG (2 TABS) THE FIRST DAY THEN 250 MG (1 TAB) DAYS 2-5 Prov:ROBERT PLASENCIA MD 08/04/18 Albuterol Sulfate* (Proair HFA*) 8.5 Gm Hfa.aer.ad, 2 PUFF INH Q6H PRN for WHEEZING AND SOB, #1 INHALER Prov:ROBERT PLASENCIA MD 08/04/18 Doxycycline* (Vibramycin*) 100 Mg Tab, 100 MG PO BID, #10 TAB Prov:ESTELA ESCOTO NP 07/27/18 Reported Medications Metformin Hcl* (Metformin Hcl*) 500 Mg Tablet, 500 MG PO WITH BREAKFAST DINNE, #60 TAB 06/26/18 Hydrochlorothiazide* (Hydrochlorothiazide*) 12.5 Mg Tablet, 12.5 MG PO DAILY, #30 TAB 06/26/18 Rivaroxaban* (Xarelto*) 20 Mg Tablet, 20 MG PO WITH DINNER, TAB 06/26/18 Allergies Allergies: Coded Allergies: No Known Allergy (Unverified , 07/20/18) PMhx/Soc Right lower extremity venous stasis ulcer, right lower extremity DVT, diabetes m ellitus, hypertension, obesity, anemia History of Surgery: No Anesthesia Reaction: No Hx Neurological Disorder: Yes (wears prescripted glasses) Hx Respiratory Disorders: No Hx Cardiac Disorders: Yes (HTN) Hx Psychiatric Problems: No Hx Miscellaneous Medical Probl: No Hx Alcohol Use: No Hx Substance Use: No Hx Tobacco Use: No Smoking Status: Never smoker FmHx Family History: No diabetes Physical Exam Vitals Vital Signs Date Temp Pulse Resp B/P (MAP) Pulse Ox O2 O2 Flow FiO2 Time Delivery Rate 08/04/18 74 17 137/83 97 Room Air 09:34 (101) Nasal Cannula 08/04/18 88 14 129/92 98 Room Air 05:58 (104) 08/04/18 66 20 95 21 04:37 08/04/18 98.2 79 18 149/98 95 Room Air 02:47 (115) 08/04/18 98.2 70 18 155/93 95 02:41 (113) Physical Exam GENERAL: Well-developed, well-nourished, appears dehydrated, afebrile HEENT: Dry mucous membranes, pink conjunctive a, no cervical spine tenderness NEURO: Alert and oriented 3, cranial nerves II through XII intact bilaterally, pupils equal round reactive to light, no focal deficits or facial asymmetry CARDIAC: Regular rate and rhythm, no murmurs rubs or gallops LUNGS: Clear bilaterally no wheezing crackles or stridor ABDOMEN: Soft nontender, no guarding, no rigidity, no rebound, no psoas sign no obturator sign. EXTREMITIES: No clubbing cyanosis or edema, calves are bilaterally symmetrical, no Homans sign, no popliteal cord sign. Distal pulses equal and bilateral PSYCH: Normal affect without agitation or irritability Result Diagram: 08/04/18 0334 08/04/18 0334 Results 24 hrs Laboratory Tests Test 08/04/18 03:34 White Blood Count 6.1 10^3/ul Red Blood Count 5.02 10^6/ul Hemoglobin 14.0 g/dl Hematocrit 43.0 % Mean Corpuscular Volume 85.7 fl Mean Corpuscular Hemoglobin 27.9 pg Mean Corpuscular Hemoglobin Concent 32.6 g/dl Red Cell Distribution Width 13.2 % Platelet Count 196 10^3/UL Mean Platelet Volume 9.7 fl Immature Granulocytes % 1.600 % Neutrophils % 54.2 % Lymphocytes % 23.6 % Monocytes % 15.0 % Eosinophils % 4.3 % Basophils % 1.3 % Nucleated Red Blood Cells % 0.0 /100WBC Immature Granulocytes # 0.100 10^3/ul Neutrophils # 3.3 10^3/ul Lymphocytes # 1.4 10^3/ul Monocytes # 0.9 10^3/ul Eosinophils # 0.3 10^3/ul Basophils # 0.1 10^3/ul Nucleated Red Blood Cells # 0.0 10^3/ul Prothrombin Time 13.1 Sec Prothrombin Time Ratio 1.0 INR International Normalized Ratio 0.98 Activated Partial Thromboplast Time 28.3 Sec Sodium Level 145 mmol/L Potassium Level 4.0 mmol/L Chloride Level 106 mmol/L Carbon Dioxide Level 28 mmol/L Anion Gap 11 Blood Urea Nitrogen 22 mg/dl Creatinine 1.19 mg/dl Est Glomerular Filtrat Rate mL/min > 60 mL/min Glucose Level 132 mg/dl Calcium Level 9.0 mg/dl Total Bilirubin 0.4 mg/dl Direct Bilirubin 0.00 mg/dl Indirect Bilirubin 0.4 mg/dl Aspartate Amino Transf (AST/SGOT) 27 IU/L Alanine Aminotransferase (ALT/SGPT) 26 IU/L Alkaline Phosphatase 76 IU/L Troponin I < 0.012 ng/ml B-Type Natriuretic Peptide 48 PG/ML Total Protein 7.9 g/dl Albumin 4.4 g/dl Globulin 3.50 g/dl Albumin/Globulin Ratio 1.25 Lipase 767 U/L Current Medications Medications Dose Sig/Miquel Start Time Status Last (Trade) Ordered Route PRN Stop Time Admin Dose Reason Admin Albuterol 5 mg ONCE STAT 08/04/18 DC 08/04/18 (Proventil INH 04:29 04:37 0.5% (Neb)) 08/04/18 04:30 IV Flush 10 ml STK-MED 08/04/18 DC 08/04/18 (NS 10 ml) ONCE .ROUTE 04:34 04:34 08/04/18 04:35 Sodium 100 ml @ ud STK-MED 08/04/18 DC 08/04/18 Chloride ONCE .ROUTE 04:34 04:34 08/04/18 04:35 Iohexol 100 ml @ ud STK-MED 08/04/18 DC 08/04/18 ONCE .ROUTE 04:34 04:34 08/04/18 04:35 Procedures/MDM IV line was established patient was placed on quality assurance monitor final rhythm strip revealed a sinus rhythm at about 70 bpm with upright P and T waves. Patient was afebrile EKG performed, read by me revealed a normal sinus rhythm at 70 bpm, normal axis, narrow QRS complex, no concerning ST elevations or depressions noted 1 view chest x-ray performed, read by me reveals congestion bilaterally, no acute infiltrates, no pneumothorax CBC was unremarkable, electrolytes revealed dehydration with a BUN/creatinine 22/1.2, liver function tests are normal, troponin was negative, BNP was low, lipase elevated at 767. I administered albuterol 5 mg via nebulizer for cough. CT angiogram of the chest was performed, no pulmonary embolism noted, viral pneumonia pattern was more likely based on the radiologist reading, please refer to his dictation for full report. Patient's vital signs are normal and his cough has improved he will be discharged with a prescription for azithromycin and albuterol pump which seemed to improve his symptoms while he was here. Differential diagnoses considered, included but not limited to acute coronary syndrome, pulmonary embolism, aortic dissection, abdominal aortic aneurysm, sepsis, stroke, meningitis, encephalitis, pneumonia, appendicitis, cholecystitis, bowel obstruction, pyelonephritis, nephrolithiasis, cystitis, as well as metabolic, hematologic, and electrolyte abnormalities. As well as abscess, cellulitis, fractures, and dislocations. Patient feels much better at this time, and vital signs are normal, symptoms have improved. I did give strict instructions to return to the ED if symptoms continue or worsen, patient will otherwise follow-up with primary care clive doll. Patient understood instructions and agreed to plan. Disclaimer: Inadvertent spelling and grammatical errors are likely due to EHR/dictation software use and do not reflect on the overall quality of patient care. Also, please note that the electronic time recorded on this note does not necessarily reflect the actual time of the patient encounter. Departure Diagnosis: Primary Impression: Cough Additional Impressions: Acute dehydration Bronchitis Pulmonary hypertension Condition: Good ROBERT PLASENCIA MD Aug 04, 2018 02:58
[2018-08-04] MEDS ORDERED: ALBUTEROL 0.5% (NEB) 2.5 MG/0.5 ML AMP INH STA (04:29)
[2018-08-04] MEDS ORDERED: SOD CHLORIDE 0.9% 100 ML ONE (04:34)
[2018-08-04] MEDS ORDERED: IOHEXOL 100 ML ONE (04:34)
[2018-08-04] MEDS ORDERED: AZIT250T PO (04:50)
[2018-08-04] MEDS ORDERED: ALBU8.5H8 INH (04:50)
--- NOTE | 2018-08-04 06:38 | QN ---
Documentation Comment Patient endorsed to me pending CT imaging. IMPRESSION: No pulmonary embolism. Borderline enlarged main pulmonary artery consistent with pulmonary hypertension. No thoracic aortic aneurysm or dissection. Ill-defined nodular infiltrate left lower lobe with thickening of the wall of the bronchi - rule out viral pneumonia. Fatty liver containing cysts. Nonobstructing renal calculi. Coronary artery calcifications. Based on CT there is no evidence of pulmonary embolism. Clinically the patient does not have any signs or symptoms concerning for viral pneumonia. No fever no white count no significant hypoxia. This is likely a nonspecific CT finding. The patient is safe for discharge per Dr. Bell's initial plan and work-up. BI PALACIOS MD Aug 04, 2018 06:38
[2018-08-04 09:34] VITALS: BP 137/83; PULSE 74; RESP 17
== END 2018-08-04 09:35 | disposition home or self-care (01) ==
LOC: E/R 02:35
DX: J40 Bronchitis, not specified as acute or chronic (principal); I10 Essential (primary) hypertension; E11.9 Type 2 diabetes mellitus without complications; E86.0 Dehydration; Z79.82 Long term (current) use of aspirin
CPT/HCPCS: 36415; 71045; 71275; 80053; 83690; 83880; 84484; 85025; 85610; 85730; 93005; 94644; 99285; Q9967

== ENCOUNTER 2018-08-23 15:17 | Inpatient (IN) | payer OTHER ==
[~2018-08-23] VITALS: Ht 182.9 cm; Wt 113.4 kg
[~2018-08-23 15:17] MED LIST changes: +ALBU8.5H8 INH; +AZIT250T PO; +HYDR-4011 PO; +NAPR-985 PO
[2018-08-23] MEDS ORDERED: ONDANSETRON 4 MG INJ IV STA (16:14)
[2018-08-23] MEDS ORDERED: morphine 4 MG/ML VIAL IV STA (16:14)
--- NOTE | 2018-08-23 16:40 | ERD ---
ER Documentation Chief Complaint Chief Complaint R LEG SWELLING AND POSSIBLE INFECTION HPI This is a 63-year-old male with a known history of hypertension and diabetes. The patient had been diagnosed with a right femoral-popliteal deep vein thrombosis on July 21, 2018 roughly 1 month prior to arrival. At that time the patient had been admitted to [facility]. He had been seen by the stock order lister Dr. Parker smith who he currently is following up with at the [facility]. The patient had been seen by the vascular surgeon Dr. Friedman as a consultation when he be admitted to the hospital. Dr. Friedman had documented that the patient had extensive right femoral-popliteal DVT that is fully noncompressible and therefore recannulization was not possible. He had severe post phlebitic syndrome. The patient indicates that for the past 3 weeks he has had extensive swelling of his right lower extremity. The pain has worsened. He has been on Xarelto which she has been taking as instructed. He states the pain in his right lower extremity is 10 out of 10 in intensity. He said no fevers no shaking no chills. He went to his primary care physician's office today Dr. Mcqueen who instructed him to come emergently to the ER for further evaluation. He denies any shortness of breath. ROS All systems reviewed and are negative except as per history of present illness. Medications Home Meds Reported Medications Metformin Hcl* (Metformin Hcl*) 500 Mg Tablet, 500 MG PO WITH BREAKFAST DINNE, #60 TAB 06/26/18 Hydrochlorothiazide* (Hydrochlorothiazide*) 12.5 Mg Tablet, 12.5 MG PO DAILY, #30 TAB 06/26/18 Rivaroxaban* (Xarelto*) 20 Mg Tablet, 20 MG PO WITH DINNER, TAB 06/26/18 Discontinued Scripts Azithromycin* (Zithromax*) 250 Mg Tablet, 250 MG PO .ZPACK DIRECTED for 5 Days, #6 TAB TAKE 500 MG (2 TABS) THE FIRST DAY THEN 250 MG (1 TAB) DAYS 2-5 Prov:ROBERT PLASENCIA MD 08/04/18 Albuterol Sulfate* (Proair HFA*) 8.5 Gm Hfa.aer.ad, 2 PUFF INH Q6H PRN for WHEEZING AND SOB, #1 INHALER Prov:ROBERT PLASENCIA MD 08/04/18 Doxycycline* (Vibramycin*) 100 Mg Tab, 100 MG PO BID, #10 TAB Prov:ESTELA ESCOTO STOREPERSON 07/27/18 Allergies Allergies: Coded Allergies: No Known Allergy (Unverified , 08/23/18) PMhx/Soc History of Surgery: No Anesthesia Reaction: No Hx Neurological Disorder: Yes (wears prescripted glasses) Hx Respiratory Disorders: No Hx Cardiac Disorders: Yes (HTN) Hx Psychiatric Problems: No Hx Miscellaneous Medical Probl: No Hx Alcohol Use: No Hx Substance Use: No Hx Tobacco Use: No Physical Exam Vitals Vital Signs Date Temp Pulse Resp B/P (MAP) Pulse Ox O2 O2 Flow FiO2 Time Delivery Rate 08/23/18 98.0 61 16 147/92 99 Room Air 18:05 (110) 08/23/18 98.6 71 18 176/81 99 15:38 (112) Physical Exam Constitutional:Well-developed. Well-nourished. HEENT:Normocephalic. Atraumatic.Pupils were equal round reactive to light. Moist mucous membranes.No tonsillar exudates. Neck: No nuchal rigidity. No lymphadenopathy. No posterior cervical spine tenderness or step-offs. Respiratory: Not using accessory muscles of respiration.Lungs were clear to auscultation bilaterally. No rhonchi. No rales. No wheezing. Cardiovascular: Regular rate regular rhythm.No murmurs. No rubs were appreciated.S1, S2 normal. Distal pulses are palpable 2+ bilaterally. GI: Abdomen was soft. Nontender. Non Distended. No pulsatile abdominal masses or bruits. No rebound. No guarding. Bowel sounds were present and normal. Muscle skeletal: Significant asymmetrical swelling of the right lower extremity compared to the left. No palpable dorsalis pedis or posterior tibialis on the right lower extremity. 2+ femoral pulses bilaterally. Significant tenderness on the right. Skin: No petechia, no purpura. Chronic venous stasis changes with excoriation of the skin on the right lower extremity with 2+ edema. Scattered ulcerations most prominent on the anterior aspect of the right lower extremity with induration and erythremia. Stage I ulcer on the mid posterior aspect of the right lower extremity. NEURO: Patient was alert, awake, orientated x3.No facial droop. Gait observed and normal with no ataxia.Speech had regular rate and rhythm. No focal neurological deficits. Result Diagram: 7/19/19 1642 08/23/18 1642 Results 24 hrs Laboratory Tests Test 08/23/18 16:42 White Blood Count 7.8 10^3/ul Red Blood Count 4.39 10^6/ul Hemoglobin 12.3 g/dl Hematocrit 38.0 % Mean Corpuscular Volume 86.6 fl Mean Corpuscular Hemoglobin 28.0 pg Mean Corpuscular Hemoglobin Concent 32.4 g/dl Red Cell Distribution Width 13.3 % Platelet Count 200 10^3/UL Mean Platelet Volume 9.6 fl Immature Granulocytes % 0.600 % Neutrophils % 71.4 % Lymphocytes % 16.7 % Monocytes % 8.1 % Eosinophils % 2.3 % Basophils % 0.9 % Nucleated Red Blood Cells % 0.0 /100WBC Immature Granulocytes # 0.050 10^3/ul Neutrophils # 5.5 10^3/ul Lymphocytes # 1.3 10^3/ul Monocytes # 0.6 10^3/ul Eosinophils # 0.2 10^3/ul Basophils # 0.1 10^3/ul Nucleated Red Blood Cells # 0.0 10^3/ul Prothrombin Time 13.9 Sec Prothrombin Time Ratio 1.1 INR International Normalized Ratio 1.06 Activated Partial Thromboplast Time 28.2 Sec Sodium Level 143 mmol/L Potassium Level 4.3 mmol/L Chloride Level 108 mmol/L Carbon Dioxide Level 24 mmol/L Anion Gap 11 Blood Urea Nitrogen 15 mg/dl Creatinine 1.09 mg/dl Est Glomerular Filtrat Rate mL/min > 60 mL/min Glucose Level 134 mg/dl Calcium Level 9.3 mg/dl Total Bilirubin 0.4 mg/dl Direct Bilirubin 0.00 mg/dl Indirect Bilirubin 0.4 mg/dl Aspartate Amino Transf (AST/SGOT) 27 IU/L Alanine Aminotransferase (ALT/SGPT) 21 IU/L Alkaline Phosphatase 63 IU/L Troponin I < 0.012 ng/ml Total Protein 7.5 g/dl Albumin 4.1 g/dl Globulin 3.40 g/dl Albumin/Globulin Ratio 1.20 Current Medications Medications Dose Sig/Miquel Start Time Status Last (Trade) Ordered Route PRN Stop Time Admin Dose Reason Admin Morphine 4 mg ONCE STAT 08/23/18 DC 08/23/18 Sulfate IV 16:14 16:54 (morphine) 7/19/19 16:19 Ondansetron 4 mg ONCE STAT 08/23/18 DC 08/23/18 HCl (Zofran IV 16:14 16:53 Inj) 08/23/18 16:19 IV Flush 3 ml PER 08/23/18 UNV (NS 3 ml) PROTOCOL IV 19:00 Ondansetron 4 mg Q6H PRN 08/23/18 UNV HCl (Zofran IV 19:00 Inj) NAUSEA/VOMITI NG 650 mg Q6H PRN 08/23/18 Acetaminophen PO .PAIN 1-3 19:00 (Tylenol OR TEMP Tab) 1 tab Q6H PRN 08/23/18 UNV Acetaminophen PO .MOD PAIN 19:00 / 4-6 Hydrocodone Bitart ([place] (5/325)) Morphine 2 mg Q4H PRN 08/23/18 UNV Sulfate IV .SEVERE 19:00 (morphine) PAIN 7-10 Docusate 100 mg Q12H PRN 08/23/18 Sodium PO 19:00 (Colace) .CONSTIPATION Magnesium 30 ml DAILY PRN 08/23/18 UNV Hydroxide PO 19:00 (Milk Of Mag) .CONSTIPATION 40 mg DAILY@06 08/24/18 UNV Pantoprazole PO 06:00 (Protonix Tab) Sodium 1,000 ml @ [id number] IV 08/23/18 UNV Chloride 75 mls/hr 18:39 Lorazepam 0.5 mg Q6H PRN 08/23/18 UNV (Ativan) IV ANXIETY 19:00 Albuterol/ 3 ml Q4H RESP 08/23/18 Ipratropium THERAPY PRN 19:00 (Duoneb) HHN SHORTNESS OF BREATH Hydralazine 10 mg Q6H PRN 08/23/18 UNV HCl IV ELEVATED 19:00 (Apresoline) BLOOD PRESSURE 1 tab Q5M PRN 08/23/18 UNV Nitroglycerin SL ANGINA 19:00 (Nitroglyceri n (Sl Tab) 0.4 Mg) 12.5 mg DAILY PO 08/24/18 UNV Hydrochloroth 09:00 iazide (Hydrochlorot hiazide) Rivaroxaban 20 mg WITH 08/24/18 UNV (Xarelto) DINNER PO 18:00 Ondansetron 4 mg BRIDGE ORDER 08/23/18 HCl (Zofran PRN IV 19:30 Inj) NAUSEA/VOMITI 08/24/18 19:29 NG 650 mg ER BRIDGE 08/23/18 Acetaminophen PRN PO 19:30 (Tylenol .MILD PAIN 08/24/18 19:29 Tab) 1-3 OR TEMP Procedures/MDM This is a 63-year-old male that presented to the emergency department severe pain of his right lower extremity. The patient indicated that his right lower extremity had significantly become more swollen. Distal pulses were diminished. I repeated a venous duplex ultrasound of the lower extremities that showed an extensive DVT that extended into the right femoral popliteal region. The patient received analgesic medication but did not improve his pain. While performing the venous duplex ultrasound the tech noticed arterial flow, however, the tech indicated that the patient was unable to perform arterial duplex studies due to the leg not being compressible. The patient will be admitted for analgesic control. He will be admitted to the hospitalist. He will be seen with a consult to the vascular surgeon Dr. Friedman. The patient had no leukocytosis my clinical suspicion was low for cellulitis. Departure Diagnosis: Primary Impression: Deep vein thrombosis DVT location: lower extremity Affected thrombotic vein of extremity: femoral Chronicity: chronic Laterality: right Qualified Codes: I82.511 - Chronic embolism and thrombosis of right femoral vein Condition: Serious CHRISSIE PATINO MD Aug 23, 2018 16:40
--- NOTE | 2018-08-23 18:54 | HP ---
Date/Time of Note Date/Time of Note DATE: 08/23/18 TIME: 18:54 Assessment/Plan VTE Prophylaxis SCD applied (from Nsg): No SCD contraindicated: other Pharmacological prophylaxis: rivaroxaban Lines/Catheters IV Catheter Type (from Nrsg): Saline Lock Assessment/Plan Hospital Course Assessment and plan: 63-year-old male past medical history hypertension, diabetes, right lower extremity DVT for over a year, facial urticaria, obesity, anemia, recent infected right lower extremity venous stasis ulcer/cellulitis diagnosed 1 month ago who presents today with worsening right lower extremity swelling and pain. #Right lower extremity pain and swelling: Again patient with DVT in the right lower extremity. Also history of recent infected right lower extremity venous stasis ulcer/cellulitis. -Admit patient, obtain vascular surgery, podiatry, and wound care consult -Pain control medications, low-dose IV fluids, will resume patient's home Xarelto -Follow-up TSH, A1c, lipid panel #Diabetes: Follow-up A1c, continue sliding scale insulin Hypertension: Continue current medications Anemia: Monitor CBC daily Facial urticaria: No present issues monitor for now Obesity: Counseled on weight cessation PT and OT consults Result Diagram: 08/23/18 1642 08/23/18 1642 Results 24hrs Laboratory Tests Test 08/23/18 16:42 White Blood Count 7.8 # Red Blood Count 4.39 L Hemoglobin 12.3 L Hematocrit 38.0 L Mean Corpuscular Volume 86.6 Mean Corpuscular Hemoglobin 28.0 L Mean Corpuscular Hemoglobin Concent 32.4 Red Cell Distribution Width 13.3 Platelet Count 200 Mean Platelet Volume 9.6 Immature Granulocytes % 0.600 H Neutrophils % 71.4 Lymphocytes % 16.7 Monocytes % 8.1 Eosinophils % 2.3 Basophils % 0.9 Nucleated Red Blood Cells % 0.0 Immature Granulocytes # 0.050 H Neutrophils # 5.5 Lymphocytes # 1.3 Monocytes # 0.6 Eosinophils # 0.2 Basophils # 0.1 Nucleated Red Blood Cells # 0.0 Prothrombin Time 13.9 Prothrombin Time Ratio 1.1 INR International Normalized Ratio 1.06 Activated Partial Thromboplast Time 28.2 Sodium Level 143 Potassium Level 4.3 Chloride Level 108 Carbon Dioxide Level 24 Anion Gap 11 Blood Urea Nitrogen 15 Creatinine 1.09 Est Glomerular Filtrat Rate mL/min > 60 Glucose Level 134 Calcium Level 9.3 Total Bilirubin 0.4 Direct Bilirubin 0.00 Indirect Bilirubin 0.4 Aspartate Amino Transf (AST/SGOT) 27 Alanine Aminotransferase (ALT/SGPT) 21 Alkaline Phosphatase 63 Troponin I < 0.012 Total Protein 7.5 Albumin 4.1 Globulin 3.40 H Albumin/Globulin Ratio 1.20 HPI/ROS Admit Date/Time Admit Date/Time Hx of Present Illness 63-year-old male past medical history hypertension, diabetes, right lower extremity DVT for over a year, facial urticaria, obesity, anemia, recent infected right lower extremity venous stasis ulcer/cellulitis diagnosed 1 month ago who presents today with worsening right lower extremity swelling and pain. Patient sees podiatry and is currently following up with them at the wound center. As well, the patient had been seen by the vascular surgeon Dr. Friedman as a consultation in the past. Dr. Friedman had documented that the patient had extensive right femoral-popliteal DVT that is fully noncompressible and therefore recannulization was not possible. He had severe post phlebitic syndrome. This time patient complains of 3 weeks of extensive swelling of his right lower extremity. The pain has worsened. Patient claims to be compliant with Xarelto which he has been taking as instructed. He states the pain in his right lower extremity is 10 out of 10 in intensity. Patient denies fevers no shaking no chills, no upper lower GI bleeding, diarrhea constipation, nausea vomiting. He went to his primary care physician's office today Dr. Mcqueen who instructed him to come emergently to the ER for further evaluation. He denies any chest pain or shortness of breath. PMH/Family/Social Past Medical History Medications Current Medications IV Flush (NS 3 ml) 3 ml PER PROTOCOL IV ; Start 08/23/18 at 19:00; Status UNV Ondansetron HCl (Zofran Inj) 4 mg Q6H PRN IV NAUSEA/VOMITING; Start 08/23/18 at 19:00; Status UNV Acetaminophen (Tylenol Tab) 650 mg Q6H PRN PO .PAIN 1-3 OR TEMP; Start 08/23/18 at 19:00; Status UNV Acetaminophen/ Hydrocodone Bitart ([place] (5/325)) 1 tab Q6H PRN PO .MOD PAIN 4- 6; Start 08/23/18 at 19:00; Status UNV Morphine Sulfate (morphine) 2 mg Q4H PRN IV .SEVERE PAIN 7-10; Start 08/23/18 at 19:00; Status UNV Docusate Sodium (Colace) 100 mg Q12H PRN PO .CONSTIPATION; Start 08/23/18 at 19:00; Status UNV Magnesium Hydroxide (Milk Of Mag) 30 ml DAILY PRN PO .CONSTIPATION; Start 08/23/18 at 19:00; Status UNV Pantoprazole (Protonix Tab) 40 mg DAILY@06 PO ; Start 08/24/18 at 06:00; Status UNV Sodium Chloride 1,000 ml @ 75 mls/hr [id number] IV ; Start 08/23/18 at 18:39; Status UNV Lorazepam (Ativan) 0.5 mg Q6H PRN IV ANXIETY; Start 08/23/18 at 19:00; Status UNV Albuterol/ Ipratropium (Duoneb) 3 ml Q4H RESP THERAPY PRN HHN SHORTNESS OF BR EATH; Start 08/23/18 at 19:00; Status UNV Hydralazine HCl (Apresoline) 10 mg Q6H PRN IV ELEVATED BLOOD PRESSURE; Start 08/23/18 at 19:00; Status UNV Nitroglycerin (Nitroglycerin (Sl Tab) 0.4 Mg) 1 tab Q5M PRN SL ANGINA; Start 08/23/18 at 19:00; Status UNV Hydrochlorothiazide (Hydrochlorothiazide) 12.5 mg DAILY PO ; Start 08/24/18 at 09:00; Status UNV Rivaroxaban (Xarelto) 20 mg WITH DINNER PO ; Start 08/24/18 at 18:00; Status UNV Coded Allergies: No Known Allergy (Unverified , 08/23/18) Past Surgical History Past Surgical Hx: no surgical history Family History Significant Family History: diabetes Social History Smoking Status: Never smoker Exam/Review of Systems Vital Signs Vitals Vital Signs Date Temp Pulse Resp B/P (MAP) Pulse Ox O2 O2 Flow FiO2 Time Delivery Rate 08/23/18 98.0 61 16 147/92 99 Room Air 18:05 (110) Exam Exam Gen: Lying in bed Head: Atraumatic Eyes: Normal Conjunctiva ENT: Normal External Ears, Nose and Mouth. Neck: Full range of motion. No meningismus. Resp: Clear to auscultation bilaterally Cardio: Regular rate and rhythm, no murmurs Abd: Soft, non tender, + distended. Normal bowel sounds Ext: + RLE swelling and pain with signs of possible elephantitis Neuro: No focal deficits EDELMIRA VIVAS Aug 23, 2018 18:54
[2018-08-23] MEDS ORDERED: ACETAMINOPHEN 325 MG TAB PO PRN ×2 (19:00→19:30)
[2018-08-23] MEDS ORDERED: MAGNESIUM HYDROXIDE 30ML CUP PO PRN (19:00)
[2018-08-23] MEDS ORDERED: NACL 0.9% 3 ML SYG IV SCH (19:00)
[2018-08-23] MEDS ORDERED: ONDANSETRON 4 MG INJ IV PRN ×2 (19:00→19:30)
[2018-08-23] MEDS ORDERED: ALBUTEROL/IPRATROPIUM (NEB) 3 ML AMP HHN PRN (19:00)
[2018-08-23] MEDS ORDERED: NITROGLYCERIN (SL) 0.4 MG TAB SL PRN (19:00)
[2018-08-23] MEDS ORDERED: hydrALAzine 20 MG INJ IV PRN (19:00)
[2018-08-23] MEDS ORDERED: LORAZEPAM 2 MG INJ IV PRN (19:00)
[2018-08-23] MEDS ORDERED: DOCUSATE SODIUM 100 MG CAP PO PRN (19:00)
[2018-08-23] MEDS ORDERED: HYDROCODONE/APAP (5/325) TAB PO PRN (19:00)
[2018-08-23] MEDS: morphine 2 MG INJ IV PRN ×2 (19:45→23:51)
[2018-08-23] MEDS: SOD CHLORIDE 0.45% 1,000 ML IV SCH (19:56)
[2018-08-23 21:29] VITALS: Ht 182.9 cm; Wt 113.4 kg
[2018-08-23 22:04] VITALS: BP 183/91; PULSE 53; RESP 18
[2018-08-24 01:50] VITALS: BP 156/82; PULSE 62; RESP 18
[2018-08-24 02:35] VITALS: BP 91/50; PULSE 62; RESP 17
[2018-08-24] MEDS: PANTOPRAZOLE (EC) 40 MG TAB PO SCH (05:31)
[2018-08-24 08:34] VITALS: BP 101/58; PULSE 60; RESP 18
[2018-08-24] MEDS: HYDROCHLOROTHIAZIDE 12.5 MG CAP PO SCH (09:00)
[2018-08-24] MEDS: SOD CHLORIDE 0.45% 1,000 ML IV SCH ×2 (09:08→21:19)
--- NOTE | 2018-08-24 10:20 | PN ---
Date/Time of Note Date/Time of Note DATE: 08/24/18 TIME: : Assessment/Plan VTE Prophylaxis Risk score (from Ns)>0 risk: 9 SCD applied (from Ns): No SCD contraindicated: other Pharmacological prophylaxis: rivaroxaban Lines/Catheters IV [facility] Type ([facility] Peripheral IV Urinary Cath still in place: No Assessment/Plan Hospital Course S: Patient had no acute events overnight, asking when he can eat. Still waiting to be seen by podiatry and wound nurse teams. O: VS- see below PE: Gen: Lying in bed Head: Atraumatic Eyes: Normal Conjunctiva ENT: Normal External Ears, Nose and Mouth. Neck: Full range of motion. No meningismus. Resp: Clear to auscultation bilaterally Cardio: Regular rate and rhythm, no murmurs Abd: Soft, non tender, + distended. Normal bowel sounds Ext: + RLE swelling and pain with signs of possible elephantitis Neuro: No focal deficits Assessment and plan: 63-year-old male past medical history hypertension, diabetes, right lower extremity DVT for over a year, facial urticaria, obesity, anemia, recent infected right lower extremity venous stasis ulcer/cellulitis diagnosed 1 month ago who presents today with worsening right lower extremity swelling and pain. #Right lower extremity pain and swelling: Again patient with DVT in the right lower extremity. Also history of recent infected right lower extremity venous stasis ulcer/cellulitis. -Continue wound care, follow-up recognitions from vascular surgery, podiatry, and wound care consult -Pain control medications, low-dose IV fluids, Xarelto #Diabetes: A1c was 6.2, sugar stable - continue sliding scale insulin Hypertension: Continue current medications Anemia: Monitor CBC daily Facial urticaria: No present issues monitor for now Obesity: Counseled on weight cessation PT and OT consults #High cholesterol: Patient has high triglycerides -Monitor, start low-dose statin Result Diagram: 08/24/1845108/24/182 Results 24hrs Laboratory Tests Test 08/23/18 16:42 08/24/18 04:52 White Blood Count 7.8 # 5.9 # Red Blood Count 4.39 L 4.04 L Hemoglobin 12.3 L 11.5 L Hematocrit 38.0 L 36.1 L Mean Corpuscular Volume 86.6 89.4 Mean Corpuscular Hemoglobin 28.0 L 28.5 L Mean Corpuscular Hemoglobin Concent 32.4 31.9 L Red Cell Distribution Width 13.3 13.4 Platelet Count 200 166 Mean Platelet Volume 9.6 10.1 Immature Granulocytes % 0.600 H 0.500 H Neutrophils % 71.4 57.1 Lymphocytes % 16.7 27.5 Monocytes % 8.1 10.4 Eosinophils % 2.3 3.7 Basophils % 0.9 0.8 Nucleated Red Blood Cells % 0.0 0.0 Immature Granulocytes # 0.050 H 0.030 Neutrophils # 5.5 3.4 Lymphocytes # 1.3 1.6 Monocytes # 0.6 0.6 Eosinophils # 0.2 0.2 Basophils # 0.1 0.1 Nucleated Red Blood Cells # 0.0 0.0 Prothrombin Time 13.9 Prothrombin Time Ratio 1.1 INR International Normalized Ratio 1.06 Activated Partial Thromboplast Time 28.2 Sodium Level 143 144 Potassium Level 4.3 4.0 Chloride Level 108 109 Carbon Dioxide Level 24 29 Anion Gap 11 6 Blood Urea Nitrogen 15 15 Creatinine 1.09 1.08 Est Glomerular Filtrat Rate mL/min > 60 > 60 Glucose Level 134 110 Calcium Level 9.3 8.7 Total Bilirubin 0.4 Direct Bilirubin 0.00 Indirect Bilirubin 0.4 Aspartate Amino Transf (AST/SGOT) 27 Alanine Aminotransferase (ALT/SGPT) 21 Alkaline Phosphatase 63 Troponin I < 0.012 Total Protein 7.5 Albumin 4.1 Globulin 3.40 H Albumin/Globulin Ratio 1.20 Free Thyroxine 0.95 Hemoglobin A1c 6.2 H Phosphorus Level 4.1 Magnesium Level 1.8 Triglycerides Level 272 H Cholesterol Level 177 LDL Cholesterol, Calculated 95 HDL Cholesterol 28 L Cholesterol/HDL Ratio 6.3 Thyroid Stimulating Hormone (TSH) 4.720 H Exam/Review of Systems Exam Vitals Vital Signs Date Temp Pulse Resp B/P (MAP) Pulse Ox O2 O2 Flow FiO2 Time Delivery Rate 08/24/18 97.8 60 18 101/58 92 08:34 (72) 08/24/18 Room Air 02:35 Results Results 24hrs Laboratory Tests Test 08/23/18 16:42 08/24/18 04:52 White Blood Count 7.8 # 5.9 # Red Blood Count 4.39 L 4.04 L Hemoglobin 12.3 L 11.5 L Hematocrit 38.0 L 36.1 L Mean Corpuscular Volume 86.6 89.4 Mean Corpuscular Hemoglobin 28.0 L 28.5 L Mean Corpuscular Hemoglobin Concent 32.4 31.9 L Red Cell Distribution Width 13.3 13.4 Platelet Count 200 166 Mean Platelet Volume 9.6 10.1 Immature Granulocytes % 0.600 H 0.500 H Neutrophils % 71.4 57.1 Lymphocytes % 16.7 27.5 Monocytes % 8.1 10.4 Eosinophils % 2.3 3.7 Basophils % 0.9 0.8 Nucleated Red Blood Cells % 0.0 0.0 Immature Granulocytes # 0.050 H 0.030 Neutrophils # 5.5 3.4 Lymphocytes # 1.3 1.6 Monocytes # 0.6 0.6 Eosinophils # 0.2 0.2 Basophils # 0.1 0.1 Nucleated Red Blood Cells # 0.0 0.0 Prothrombin Time 13.9 Prothrombin Time Ratio 1.1 INR International Normalized Ratio 1.06 Activated Partial Thromboplast Time 28.2 Sodium Level 143 144 Potassium Level 4.3 4.0 Chloride Level 108 109 Carbon Dioxide Level 24 29 Anion Gap 11 6 Blood Urea Nitrogen 15 15 Creatinine 1.09 1.08 Est Glomerular Filtrat Rate mL/min > 60 > 60 Glucose Level 134 110 Calcium Level 9.3 8.7 Total Bilirubin 0.4 Direct Bilirubin 0.00 Indirect Bilirubin 0.4 Aspartate Amino Transf (AST/SGOT) 27 Alanine Aminotransferase (ALT/SGPT) 21 Alkaline Phosphatase 63 Troponin I < 0.012 Total Protein 7.5 Albumin 4.1 Globulin 3.40 H Albumin/Globulin Ratio 1.20 Free Thyroxine 0.95 Hemoglobin A1c 6.2 H Phosphorus Level 4.1 Magnesium Level 1.8 Triglycerides Level 272 H Cholesterol Level 177 LDL Cholesterol, Calculated 95 HDL Cholesterol 28 L Cholesterol/HDL Ratio 6.3 Thyroid Stimulating Hormone (TSH) 4.720 H Medications Medication Current Medications IV Flush (NS 3 ml) 3 ml PER PROTOCOL IV ; Start 08/23/18 at 19:00 Ondansetron HCl (Zofran Inj) 4 mg Q6H PRN IV NAUSEA/VOMITING; Start 08/23/18 at 19:00 Acetaminophen (Tylenol Tab) 650 mg Q6H PRN PO .PAIN 1-3 OR TEMP; Start 08/23/18 at 19:00 Acetaminophen/ Hydrocodone Bitart ([place] (5/325)) 1 tab Q6H PRN PO .MOD PAIN 4- 6; Start 08/23/18 at 19:00 Morphine Sulfate (morphine) 2 mg Q4H PRN IV .SEVERE PAIN 7-10 Last administered on 08/23/18at 23:51; Admin Dose 2 MG; Start 08/23/18 at 19:00 Docusate Sodium (Colace) 100 mg Q12H PRN PO .CONSTIPATION; Start 08/23/18 at 19:00 Magnesium Hydroxide (Milk Of Mag) 30 ml DAILY PRN PO .CONSTIPATION; Start 08/23/18 at 19:00 Pantoprazole (Protonix Tab) 40 mg DAILY@06 PO Last administered on 08/24/18at 05:31; Admin Dose 40 MG; Start 08/24/18 at 06:00 Sodium Chloride 1,000 ml @ 75 mls/hr [id number] IV Last administered on 08/24/18at 09:08; Admin Dose 75 MLS/HR; Start 08/23/18 at 18:39 Lorazepam (Ativan) 0.5 mg Q6H PRN IV ANXIETY; Start 08/23/18 at 19:00 Albuterol/ Ipratropium (Duoneb) 3 ml Q4H RESP THERAPY PRN HHN SHORTNESS OF BREATH; Start 08/23/18 at 19:00 Hydralazine HCl (Apresoline) 10 mg Q6H PRN IV ELEVATED BLOOD PRESSURE; Start 08/23/18 at 19:00 Nitroglycerin (Nitroglycerin (Sl Tab) 0.4 Mg) 1 tab Q5M PRN SL ANGINA; Start 08/23/18 at 19:00 Hydrochlorothiazide (Hydrochlorothiazide) 12.5 mg DAILY PO ; Start 08/24/18 at 09:00 Rivaroxaban (Xarelto) 20 mg WITH DINNER PO ; Start 08/24/18 at 18:00 EDELMIRA VIVAS Aug 24, 2018 10:20
[2018-08-24] MEDS: CEFTRIAXONE 1 GM/50 ML (PMX) 50 ML IVPB SCH (11:28)
[2018-08-24 14:09] VITALS: BP 124/75; PULSE 58; RESP 18
--- NOTE | 2018-08-24 17:22 | CONS ---
Assessment/Plan Assessment/Plan Assessment/Plan (Daily) Right lower extremity venous hypertension with ulceration Venous insufficiency Lymphedema Chronic DVT right lower extremity Homelessness DM2 with peripheral neuropathy Plan Recommend daily compression dressings with betadine soaked gauze to right lower leg ulceration site wrap with kerlix and linda wrap from base of toes to proximal leg below the knee and elevation to assist with edema management. No podiatric procedures planned at this time. Recommend SNF placement and appreciate case management input. Continue with anticoagulation. Consultation Date/Type/Reason Admit Date/Time Date/Time of Note DATE: 08/24/18 TIME: 17:22 Hx of Present Illness 63 y/o M with history of homelessness living in car, hypertension, diabetes, right lower extremity DVT for over a year, facial urticaria, obesity, anemia, presents to the floor with worsening swelling to right lower extremity and right venous leg wound. Patient states since he's been in the hospital the swelling has decreased but due to his living situation he is unable to elevate his legs. He reports continuing his xarelto as instructed. Patient also reports improvement to his wounds of his right lower extremity. Denies f/c/n/v no chest pain or shortness of breath. ROS Negative except for HPI Past Medical History homelessness living in car, hypertension, diabetes, right lower extremity DVT for over a year, facial urticaria, obesity, anemia, venous insufficiency, lymphedema Home Meds Reported Medications Metformin Hcl* (Metformin Hcl*) 500 Mg Tablet, 500 MG PO WITH BREAKFAST DINNE, #60 TAB 06/26/18 Hydrochlorothiazide* (Hydrochlorothiazide*) 12.5 Mg Tablet, 12.5 MG PO DAILY, #30 TAB 06/26/18 Rivaroxaban* (Xarelto*) 20 Mg Tablet, 20 MG PO WITH DINNER, TAB 06/26/18 Discontinued Scripts Azithromycin* (Zithromax*) 250 Mg Tablet, 250 MG PO .ZPACK DIRECTED for 5 Days, #6 TAB TAKE 500 MG (2 TABS) THE FIRST DAY THEN 250 MG (1 TAB) DAYS 2-5 Prov:ROBERT PLASENCIA MD 08/04/18 Albuterol Sulfate* (Proair HFA*) 8.5 Gm Hfa.aer.ad, 2 PUFF INH Q6H PRN for WHEEZING AND SOB, #1 INHALER Prov:ROBERT PLASENCIA MD 08/04/18 Doxycycline* (Vibramycin*) 100 Mg Tab, 100 MG PO BID, #10 TAB Prov:ESTELA ESCOTO NP 07/27/18 Medications Current Medications IV Flush (NS 3 ml) 3 ml PER PROTOCOL IV ; Start 08/23/18 at 19:00 Ondansetron HCl (Zofran Inj) 4 mg Q6H PRN IV NAUSEA/VOMITING; Start 08/23/18 at 19:00 Acetaminophen (Tylenol Tab) 650 mg Q6H PRN PO .PAIN 1-3 OR TEMP; Start 08/23/18 at 19:00 Acetaminophen/ Hydrocodone Bitart ([place] (5/325)) 1 tab Q6H PRN PO .MOD PAIN 4- 6; Start 08/23/18 at 19:00 Morphine Sulfate (morphine) 2 mg Q4H PRN IV .SEVERE PAIN 7-10 Last administered on 08/23/18at 23:51; Admin Dose 2 MG; Start 08/23/18 at 19:00 Docusate Sodium (Colace) 100 mg Q12H PRN PO .CONSTIPATION; Start 08/23/18 at 19:00 Magnesium Hydroxide (Milk Of Mag) 30 ml DAILY PRN PO .CONSTIPATION; Start 08/23/18 at 19:00 Pantoprazole (Protonix Tab) 40 mg DAILY@06 PO Last administered on 08/24/18at 05:31; Admin Dose 40 MG; Start 08/24/18 at 06:00 Sodium Chloride 1,000 ml @ 75 mls/hr [id number] IV Last administered on 08/24/18at 09:08; Admin Dose 75 MLS/HR; Start 08/23/18 at 18:39 Lorazepam (Ativan) 0.5 mg Q6H PRN IV ANXIETY; Start 08/23/18 at 19:00 Albuterol/ Ipratropium (Duoneb) 3 ml Q4H RESP THERAPY PRN HHN SHORTNESS OF BREATH; Start 08/23/18 at 19:00 Hydralazine HCl (Apresoline) 10 mg Q6H PRN IV ELEVATED BLOOD PRESSURE; Start 08/23/18 at 19:00 Nitroglycerin (Nitroglycerin (Sl Tab) 0.4 Mg) 1 tab Q5M PRN SL ANGINA; Start 08/23/18 at 19:00 Hydrochlorothiazide (Hydrochlorothiazide) 12.5 mg DAILY PO ; Start 08/24/18 at 09:00 Rivaroxaban (Xarelto) 20 mg WITH DINNER PO ; Start 08/24/18 at 18:00 Ceftriaxone Sodium 50 ml @ 100 mls/hr Q24H IVPB Last administered on 08/24/18at 11:28; Admin Dose 100 MLS/HR; Start 08/24/18 at 10:30 Atorvastatin Calcium (Lipitor) 20 mg HS PO ; Start 08/24/18 at 21:00 Allergies: Coded Allergies: No Known Allergy (Unverified , 08/23/18) Past Surgical History Past Surgical Hx: no surgical history Social History Smoking Status: Never smoker Exam/Review of Systems Exam Vitals Vital Signs Date Temp Pulse Resp B/P (MAP) Pulse Ox O2 O2 Flow FiO2 Time Delivery Rate 08/24/18 97.9 58 18 124/75 96 Room Air 14:09 (91) Exam DP/PT and popliteal pulses palpable Absent protective sensations. Cobblestoning noted to the right lower extremity Right lateral leg ulceration 3.5 x 1.6 x 0.2cm granular no probing to bone, no purulence noted, no proximal streaking 2+ pitting edema No pain on palpation to the right lower extremity calf Muscle strength 5/5 in all compartments of the foot Results Result Diagram: 08/24/18 0452 08/24/18 0452 Results 24hrs Laboratory Tests Test 08/24/18 04:52 White Blood Count 5.9 # Red Blood Count 4.04 L Hemoglobin 11.5 L Hematocrit 36.1 L Mean Corpuscular Volume 89.4 Mean Corpuscular Hemoglobin 28.5 L Mean Corpuscular Hemoglobin Concent 31.9 L Red Cell Distribution Width 13.4 Platelet Count 166 Mean Platelet Volume 10.1 Immature Granulocytes % 0.500 H Neutrophils % 57.1 Lymphocytes % 27.5 Monocytes % 10.4 Eosinophils % 3.7 Basophils % 0.8 Nucleated Red Blood Cells % 0.0 Immature Granulocytes # 0.030 Neutrophils # 3.4 Lymphocytes # 1.6 Monocytes # 0.6 Eosinophils # 0.2 Basophils # 0.1 Nucleated Red Blood Cells # 0.0 Sodium Level 144 Potassium Level 4.0 Chloride Level 109 Carbon Dioxide Level 29 Anion Gap 6 Blood Urea Nitrogen 15 Creatinine 1.08 Est Glomerular Filtrat Rate mL/min > 60 Glucose Level 110 Hemoglobin A1c 6.2 H Calcium Level 8.7 Phosphorus Level 4.1 Magnesium Level 1.8 Triglycerides Level 272 H Cholesterol Level 177 LDL Cholesterol, Calculated 95 HDL Cholesterol 28 L Cholesterol/HDL Ratio 6.3 Thyroid Stimulating Hormone (TSH) 4.720 H Medications Medication Current Medications IV Flush (NS 3 ml) 3 ml PER PROTOCOL IV ; Start 08/23/18 at 19:00 Ondansetron HCl (Zofran Inj) 4 mg Q6H PRN IV NAUSEA/VOMITING; Start 08/23/18 at 19:00 Acetaminophen (Tylenol Tab) 650 mg Q6H PRN PO .PAIN 1-3 OR TEMP; Start 08/23/18 at 19:00 Acetaminophen/ Hydrocodone Bitart ([place] (5/325)) 1 tab Q6H PRN PO .MOD PAIN 4- 6; Start 08/23/18 at 19:00 Morphine Sulfate (morphine) 2 mg Q4H PRN IV .SEVERE PAIN 7-10 Last administered on 08/23/18at 23:51; Admin Dose 2 MG; Start 08/23/18 at 19:00 Docusate Sodium (Colace) 100 mg Q12H PRN PO .CONSTIPATION; Start 08/23/18 at 19:00 Magnesium Hydroxide (Milk Of Mag) 30 ml DAILY PRN PO .CONSTIPATION; Start 08/23/18 at 19:00 Pantoprazole (Protonix Tab) 40 mg DAILY@06 PO Last administered on 08/24/18at 05:31; Admin Dose 40 MG; Start 08/24/18 at 06:00 Sodium Chloride 1,000 ml @ 75 mls/hr [id number] IV Last administered on 08/24/18at 09:08; Admin Dose 75 MLS/HR; Start 08/23/18 at 18:39 Lorazepam (Ativan) 0.5 mg Q6H PRN IV ANXIETY; Start 08/23/18 at 19:00 Albuterol/ Ipratropium (Duoneb) 3 ml Q4H RESP THERAPY PRN HHN SHORTNESS OF BREATH; Start 08/23/18 at 19:00 Hydralazine HCl (Apresoline) 10 mg Q6H PRN IV ELEVATED BLOOD PRESSURE; Start 08/23/18 at 19:00 Nitroglycerin (Nitroglycerin (Sl Tab) 0.4 Mg) 1 tab Q5M PRN SL ANGINA; Start 08/23/18 at 19:00 Hydrochlorothiazide (Hydrochlorothiazide) 12.5 mg DAILY PO ; Start 08/24/18 at 09:00 Rivaroxaban (Xarelto) 20 mg WITH DINNER PO ; Start 08/24/18 at 18:00 Ceftriaxone Sodium 50 ml @ 100 mls/hr Q24H IVPB Last administered on 08/24/18at 11:28; Admin Dose 100 MLS/HR; Start 08/24/18 at 10:30 Atorvastatin Calcium (Lipitor) 20 mg HS PO ; Start 08/24/18 at 21:00 KELLI TREADWELL DPMarcos Aug 24, 2018 17:22
[2018-08-24] MEDS: morphine 2 MG INJ IV PRN ×2 (18:03→22:13)
[2018-08-24] MEDS: RIVAROXABAN 20 MG TABLET PO SCH (18:25)
[2018-08-24] MEDS ORDERED: GLUCOSE GEL 15 GRAM TUBE PO PRN ×2 (20:00)
[2018-08-24] MEDS ORDERED: DEXTROSE 50% 50 ML SYRINGE IV PRN ×2 (20:00)
[2018-08-24] MEDS ORDERED: GLUCAGON 1 MG INJ IM PRN (20:00)
[2018-08-24] MEDS ORDERED: GLUCOSE GEL 15 GRAM TUBE BUCCAL PRN (20:00)
[2018-08-24 20:14] VITALS: BP 120/70; PULSE 55; RESP 18
[2018-08-24] MEDS: INSULIN ASPART [NOVOLOG] 3 ML PEN SC SCH (21:00)
[2018-08-24] MEDS: ATORVASTATIN 20 MG TAB PO SCH (21:18)
[2018-08-25] MEDS: SOD CHLORIDE 0.45% 1,000 ML IV SCH ×3 (00:26→20:13)
[2018-08-25 01:40] VITALS: BP 116/68; PULSE 58; RESP 18
[2018-08-25] MEDS: PANTOPRAZOLE (EC) 40 MG TAB PO SCH (05:39)
[2018-08-25 07:43] VITALS: BP 151/84; PULSE 50; RESP 15
[2018-08-25] MEDS: HYDROCHLOROTHIAZIDE 12.5 MG CAP PO SCH (09:00)
[2018-08-25] MEDS: INSULIN ASPART [NOVOLOG] 3 ML PEN SC SCH ×4 (09:04→20:13)
[2018-08-25] MEDS: CEFTRIAXONE 1 GM/50 ML (PMX) 50 ML IVPB SCH (10:20)
[2018-08-25] MEDS: morphine 2 MG INJ IV PRN ×2 (10:23→21:35)
--- NOTE | 2018-08-25 12:46 | PN ---
Date/Time of Note Date/Time of Note DATE: 08/25/18 TIME: 12:43 Assessment/Plan VTE Prophylaxis Risk score (from Ns)>0 risk: 9 SCD applied (from Ns): No SCD contraindicated: other Pharmacological prophylaxis: rivaroxaban Lines/Catheters IV Catheter Type (from Nrs): Peripheral IV Urinary Cath still in place: No Assessment/Plan Hospital Course S: Patient seen by podiatry team. Tolerating diet. O: VS- see below PE: Gen: Lying in bed Head: Atraumatic Eyes: Normal Conjunctiva ENT: Normal External Ears, Nose and Mouth. Neck: Full range of motion. No meningismus. Resp: Clear to auscultation bilaterally Cardio: Regular rate and rhythm, no murmurs Abd: Soft, non tender, + distended. Normal bowel sounds Ext: + RLE swelling and pain with signs of possible elephantitis Neuro: No focal deficits Right lower extremity ultrasound: IMPRESSION: Deep vein thrombosis of the femoral and popliteal veins, unchanged. Assessment and plan: 63-year-old male past medical history hypertension, diabetes, right lower extremity DVT for over a year, facial urticaria, obesity, anemia, recent infected right lower extremity venous stasis ulcer/cellulitis diagnosed 1 month ago who presents today with worsening right lower extremity swelling and pain. #Right lower extremity pain and swelling: Again patient presents with DVT in the right lower extremity. Also history of recent infected right lower extremity venous stasis ulcer/cellulitis. -Continue wound care, follow-up recs from vascular surgery, podiatry teams -Continue pain control medications, low-dose antibiotics, low-dose IV fluids, Xarelto -We will also place caser in consult for placement options and history of homelessness, respectively #Diabetes: A1c was 6.2, sugars stable -Monitor, continue sliding scale insulin Hypertension: Continue current medications Anemia: Hemoglobin stable- monitor CBC daily Facial urticaria: No present issues monitor for now -monitor Obesity: Counseled on weight cessation, follow-up recommendations from PT and OT consults #High cholesterol: Patient has high triglycerides -Monitor, started this admission on low-dose statin Result Diagram: 08/25/18 0806 08/25/18 0806 Results 24hrs Laboratory Tests Test 08/24/18 22:08 08/25/18 08:06 08/25/18 08:46 08/25/18 12:24 Bedside Glucose 106 119 121 White Blood Count 5.2 Red Blood Count 4.29 L Hemoglobin 12.1 L Hematocrit 37.6 L Mean Corpuscular 87.6 Volume Mean Corpuscular 28.2 L Hemoglobin Mean Corpuscular 32.2 Hemoglobin Concent Red Cell 13.4 Distribution Width Platelet Count 156 Mean Platelet Volume 9.4 Immature 0.400 Granulocytes % Neutrophils % 57.1 Lymphocytes % 27.8 Monocytes % 10.5 Eosinophils % 3.4 Basophils % 0.8 Nucleated Red Blood 0.0 Cells % Immature 0.020 Granulocytes # Neutrophils # 3.0 Lymphocytes # 1.5 Monocytes # 0.6 Eosinophils # 0.2 Basophils # 0.0 Nucleated Red Blood 0.0 Cells # Sodium Level 144 Potassium Level 3.9 Chloride Level 109 Carbon Dioxide Level 28 Anion Gap 7 Blood Urea Nitrogen 18 Creatinine 1.15 Est Glomerular > 60 Filtrat Rate mL/min Glucose Level 131 Calcium Level 8.9 Exam/Review of Systems Exam Vitals Vital Signs Date Temp Pulse Resp B/P (MAP) Pulse Ox O2 O2 Flow FiO2 Time Delivery Rate 08/25/18 97.8 50 15 151/84 93 Room Air 07:43 (106) Intake and Output 08/24/18 08/24/18 08/25/18 1515:00 23:00 07:00 IntakeIntake Total 350 ml 425 ml 813 ml BalanceBalance 350 ml 425 ml 813 ml Results Results 24hrs Laboratory Tests Test 08/24/18 22:08 08/25/18 08:06 08/25/18 08:46 08/25/18 12:24 Bedside Glucose 106 119 121 White Blood Count 5.2 Red Blood Count 4.29 L Hemoglobin 12.1 L Hematocrit 37.6 L Mean Corpuscular 87.6 Volume Mean Corpuscular 28.2 L Hemoglobin Mean Corpuscular 32.2 Hemoglobin Concent Red Cell 13.4 Distribution Width Platelet Count 156 Mean Platelet Volume 9.4 Immature 0.400 Granulocytes % Neutrophils % 57.1 Lymphocytes % 27.8 Monocytes % 10.5 Eosinophils % 3.4 Basophils % 0.8 Nucleated Red Blood 0.0 Cells % Immature 0.020 Granulocytes # Neutrophils # 3.0 Lymphocytes # 1.5 Monocytes # 0.6 Eosinophils # 0.2 Basophils # 0.0 Nucleated Red Blood 0.0 Cells # Sodium Level 144 Potassium Level 3.9 Chloride Level 109 Carbon Dioxide Level 28 Anion Gap 7 Blood Urea Nitrogen 18 Creatinine 1.15 Est Glomerular > 60 Filtrat Rate mL/min Glucose Level 131 Calcium Level 8.9 Medications Medication Current Medications IV Flush (NS 3 ml) 3 ml PER PROTOCOL IV ; Start 08/23/18 at 19:00 Ondansetron HCl (Zofran Inj) 4 mg Q6H PRN IV NAUSEA/VOMITING; Start 08/23/18 at 19:00 Acetaminophen (Tylenol Tab) 650 mg Q6H PRN PO .PAIN 1-3 OR TEMP; Start 08/23/18 at 19:00 Acetaminophen/ Hydrocodone Bitart ([place] (5/325)) 1 tab Q6H PRN PO .MOD PAIN 4- 6; Start 08/23/18 at 19:00 Morphine Sulfate (morphine) 2 mg Q4H PRN IV .SEVERE PAIN 7-10 Last administered on 08/25/18at 10:23; Admin Dose 2 MG; Start 08/23/18 at 19:00 Docusate Sodium (Colace) 100 mg Q12H PRN PO .CONSTIPATION; Start 08/23/18 at 19:00 Magnesium Hydroxide (Milk Of Mag) 30 ml DAILY PRN PO .CONSTIPATION; Start 08/23/18 at 19:00 Pantoprazole (Protonix Tab) 40 mg DAILY@06 PO Last administered on 08/25/18at 05:39; Admin Dose 40 MG; Start 08/24/18 at 06:00 Sodium Chloride 1,000 ml @ 75 mls/hr [id number] IV Last administered on 08/25/18at 10:21; Admin Dose 75 MLS/HR; Start 08/23/18 at 18:39 Lorazepam (Ativan) 0.5 mg Q6H PRN IV ANXIETY; Start 08/23/18 at 19:00 Albuterol/ Ipratropium (Duoneb) 3 ml Q4H RESP THERAPY PRN HHN SHORTNESS OF BREATH; Start 08/23/18 at 19:00 Hydralazine HCl (Apresoline) 10 mg Q6H PRN IV ELEVATED BLOOD PRESSURE; Start 08/23/18 at 19:00 Nitroglycerin (Nitroglycerin (Sl Tab) 0.4 Mg) 1 tab Q5M PRN SL ANGINA; Start 08/23/18 at 19:00 Hydrochlorothiazide (Hydrochlorothiazide) 12.5 mg DAILY PO ; Start 08/24/18 at 09:00 Rivaroxaban (Xarelto) 20 mg WITH DINNER PO Last administered on 08/24/18at 18:25; Admin Dose 20 MG; Start 08/24/18 at 18:00 Ceftriaxone Sodium 50 ml @ 100 mls/hr Q24H IVPB Last administered on 08/25/18at 10:20; Admin Dose 100 MLS/HR; Start 08/24/18 at 10:30 Atorvastatin Calcium (Lipitor) 20 mg HS PO Last administered on 08/24/18at 21:18; Admin Dose 20 MG; Start 08/24/18 at 21:00 Insulin Aspart (Novolog Insulin Pen) NOVOLOG *MILD* ALGORITHM WITH MEALS BEDTIME SC ; Start 08/24/18 at 21:00 Miscellaneous Information 1 ea NOTE XX ; Start 08/24/18 at 20:00 Glucose (Glutose) 15 gm Q15M PRN PO DECREASED GLUCOSE; Start 08/24/18 at 20:00 Glucose (Glutose) 22.5 gm Q15M PRN PO DECREASED GLUCOSE; Start 08/24/18 at 20:00 Dextrose (D50w Syringe) 25 ml Q15M PRN IV DECREASED GLUCOSE; Start 08/24/18 at 20:00 Dextrose (D50w Syringe) 50 ml Q15M PRN IV DECREASED GLUCOSE; Start 08/24/18 at 20:00 Glucagon (Glucagen) 1 mg Q15M PRN IM DECREASED GLUCOSE; Start 08/24/18 at 20:00 Glucose (Glutose) 15 gm Q15M PRN BUCCAL DECREASED GLUCOSE; Start 08/24/18 at 20:00 EDELMIRA VIVAS Aug 25, 2018 12:46
[2018-08-25 14:33] VITALS: BP 147/71; RESP 14
[2018-08-25] MEDS: RIVAROXABAN 20 MG TABLET PO SCH (17:12)
[2018-08-25 19:45] VITALS: BP 149/87; PULSE 51; RESP 20
[2018-08-25] MEDS: ATORVASTATIN 20 MG TAB PO SCH (20:12)
[2018-08-26 02:07] VITALS: BP 129/73; PULSE 61; RESP 18
[2018-08-26] MEDS: PANTOPRAZOLE (EC) 40 MG TAB PO SCH (05:36)
[2018-08-26 07:24] VITALS: BP 160/92; PULSE 53; RESP 18
[2018-08-26] MEDS: INSULIN ASPART [NOVOLOG] 3 ML PEN SC SCH ×4 (08:00→20:38)
[2018-08-26] MEDS: HYDROCHLOROTHIAZIDE 12.5 MG CAP PO SCH (08:24)
[2018-08-26] MEDS: CEFTRIAXONE 1 GM/50 ML (PMX) 50 ML IVPB SCH (09:56)
[2018-08-26] MEDS: morphine 2 MG INJ IV PRN ×2 (09:57→19:39)
[2018-08-26] MEDS: SOD CHLORIDE 0.45% 1,000 ML IV SCH (10:05)
[2018-08-26 13:29] VITALS: BP 172/86; PULSE 62; RESP 18
--- NOTE | 2018-08-26 14:29 | PN ---
Date/Time of Note Date/Time of Note DATE: 08/26/18 TIME: 14:24 Assessment/Plan VTE Prophylaxis Risk score (from Nsg)>0 risk: 6 SCD applied (from Nsg): Yes Pharmacological prophylaxis: rivaroxaban Lines/Catheters IV Catheter Type (from Nrsg): Saline Lock Urinary Cath still in place: No Assessment/Plan Assessment/Plan 63-year-old male past medical history hypertension, diabetes, right lower extremity DVT for over a year, facial urticaria, obesity, anemia, recent infected right lower extremity venous stasis ulcer/cellulitis diagnosed 1 month ago who presents today with worsening right lower extremity swelling and pain. #Right lower extremity pain and swelling: Again patient presents with DVT in the right lower extremity. Also history of recent infected right lower extremity ve nous stasis ulcer/cellulitis. -Continue wound care, follow-up recs from vascular surgery, podiatry teams -Continue pain control medications - Cont Xarelto - cut out worker for placement options. Patient just turned 63 so many have more options from [facility]. #Diabetes: A1c was 6.2, sugars stable -Monitor, continue sliding scale insulin #Nephrolithiasis - Symptoms have now resolved. I will not pursue CT urogram. # Hypertension: Continue current medications #Anemia: Hemoglobin stable- monitor CBC daily #Obesity: Counseled on weight cessation, follow-up recommendations from PT and OT consults #High cholesterol: Patient has high triglycerides -Monitor, started this admission on low-dose statin Result Diagram: 08/25/18 0806 08/25/18 0806 Subjective 24 Hr Interval Summary Free Text/Dictation So last night the patient had extraordinary flank pain and actually passed four kidney stones. He saved three of them in the urinal. They are very large, ranging about 3-6 mm. Exam/Review of Systems Exam Vitals Vital Signs Date Temp Pulse Resp B/P (MAP) Pulse Ox O2 O2 Flow FiO2 Time Delivery Rate 08/26/18 97.8 62 18 172/86 94 13:29 (114) 08/26/18 Room Air 02:07 Intake and Output 08/25/18 08/25/18 08/26/18 1515:00 23:00 07:00 IntakeIntake Total 575 ml 1650 ml OutputOutput Total 1250 ml BalanceBalance 575 ml 1650 ml -1250 ml Exam Gen: Well appearing man sitting up in chair. Head: Atraumatic Eyes: Normal Conjunctiva ENT: Normal External Ears, Nose and Mouth. Neck: Full range of motion. No meningismus. Resp: Clear to auscultation bilaterally Cardio: Regular rate and rhythm, no murmurs Abd: Soft, non tender, + distended. Normal bowel sounds Ext: Bilateral LE venous stasis skin changes and edema. The right leg has a compression bandage. The exam does not resemble lymphatic filariasis. Results Results 24hrs Laboratory Tests Test 08/25/18 17:08 08/25/18 18:00 08/25/18 20:11 08/26/18 08:22 Bedside Glucose 139 114 112 Urine Color RED Urine Clarity CLOUDY A Urine pH 6.0 Urine Specific 1.008 [place] Urine Ketones NEGATIVE Urine Nitrite NEGATIVE Urine Bilirubin NEGATIVE Urine Urobilinogen NEGATIVE Urine Leukocyte NEGATIVE Esterase Urine Microscopic > 182 H RBC Urine Microscopic 154 H WBC Urine Bacteria FEW A Urine Hemoglobin 3+ H Urine Glucose NEGATIVE Urine Total Protein 2+ H Test 08/26/18 12:36 Bedside Glucose 120 Medications Medication Current Medications IV Flush (NS 3 ml) 3 ml PER PROTOCOL IV ; Start 08/23/18 at 19:00 Ondansetron HCl (Zofran Inj) 4 mg Q6H PRN IV NAUSEA/VOMITING; Start 08/23/18 at 19:00 Acetaminophen (Tylenol Tab) 650 mg Q6H PRN PO .PAIN 1-3 OR TEMP; Start 08/23/18 at 19:00 Acetaminophen/ Hydrocodone Bitart ([place] (5/325)) 1 tab Q6H PRN PO .MOD PAIN 4- 6; Start 08/23/18 at 19:00 Morphine Sulfate (morphine) 2 mg Q4H PRN IV .SEVERE PAIN 7-10 Last administered on 08/26/18at 09:57; Admin Dose 2 MG; Start 08/23/18 at 19:00 Docusate Sodium (Colace) 100 mg Q12H PRN PO .CONSTIPATION; Start 08/23/18 at 19:00 Magnesium Hydroxide (Milk Of Mag) 30 ml DAILY PRN PO .CONSTIPATION; Start 08/23/18 at 19:00 Pantoprazole (Protonix Tab) 40 mg DAILY@06 PO Last administered on 08/26/18at 05:36; Admin Dose 40 MG; Start 08/24/18 at 06:00 Sodium Chloride 1,000 ml @ 75 mls/hr [id number] IV Last administered on 08/26/18at 10:05; Admin Dose 75 MLS/HR; Start 08/23/18 at 18:39 Lorazepam (Ativan) 0.5 mg Q6H PRN IV ANXIETY; Start 08/23/18 at 19:00 Albuterol/ Ipratropium (Duoneb) 3 ml Q4H RESP THERAPY PRN HHN SHORTNESS OF BREATH; Start 08/23/18 at 19:00 Hydralazine HCl (Apresoline) 10 mg Q6H PRN IV ELEVATED BLOOD PRESSURE; Start 08/23/18 at 19:00 Nitroglycerin (Nitroglycerin (Sl Tab) 0.4 Mg) 1 tab Q5M PRN SL ANGINA; Start at 19:00 Hydrochlorothiazide (Hydrochlorothiazide) 12.5 mg DAILY PO Last administered on 08/26/18at 08:24; Admin Dose 12.5 MG; Start 08/24/18 at 09:00 Rivaroxaban (Xarelto) 20 mg WITH DINNER PO Last administered on 08/25/18at 17:12; Admin Dose 20 MG; Start 08/24/18 at 18:00 Ceftriaxone Sodium 50 ml @ 100 mls/hr Q24H IVPB Last administered on 08/26/18at 09:56; Admin Dose 100 MLS/HR; Start 08/24/18 at 10:30 Atorvastatin Calcium (Lipitor) 20 mg HS PO Last administered on 08/25/18at 20:12; Admin Dose 20 MG; Start 08/24/18 at 21:00 Insulin Aspart (Novolog Insulin Pen) NOVOLOG *MILD* ALGORITHM WITH MEALS BEDTIME SC ; Start 08/24/18 at 21:00 Miscellaneous Information 1 ea NOTE XX ; Start 08/24/18 at 20:00 Glucose (Glutose) 15 gm Q15M PRN PO DECREASED GLUCOSE; Start 08/24/18 at 20:00 Glucose (Glutose) 22.5 gm Q15M PRN PO DECREASED GLUCOSE; Start 08/24/18 at 20:00 Dextrose (D50w Syringe) 25 ml Q15M PRN IV DECREASED GLUCOSE; Start 08/24/18 at 20:00 Dextrose (D50w Syringe) 50 ml Q15M PRN IV DECREASED GLUCOSE; Start 08/24/18 at 20:00 Glucagon (Glucagen) 1 mg Q15M PRN IM DECREASED GLUCOSE; Start 08/24/18 at 20:00 Glucose (Glutose) 15 gm Q15M PRN BUCCAL DECREASED GLUCOSE; Start 08/24/18 at 20:00 BRANDON MORALES MD Aug 26, 2018 14:29
[2018-08-26] MEDS: RIVAROXABAN 20 MG TABLET PO SCH (17:10)
[2018-08-26 19:33] VITALS: BP 164/94; PULSE 61; RESP 18
[2018-08-26] MEDS: ATORVASTATIN 20 MG TAB PO SCH (20:38)
[2018-08-27 01:53] VITALS: BP 113/66; PULSE 61; RESP 18
[2018-08-27] MEDS: PANTOPRAZOLE (EC) 40 MG TAB PO SCH (06:01)
[2018-08-27 07:24] VITALS: BP 132/65; PULSE 57; RESP 15
[2018-08-27] MEDS: INSULIN ASPART [NOVOLOG] 3 ML PEN SC SCH ×4 (08:00→21:00)
[2018-08-27] MEDS: HYDROCHLOROTHIAZIDE 12.5 MG CAP PO SCH (08:15)
[2018-08-27] MEDS: CEFTRIAXONE 1 GM/50 ML (PMX) 50 ML IVPB SCH (11:01)
[2018-08-27 14:00] VITALS: BP 141/86; PULSE 60; RESP 18
--- NOTE | 2018-08-27 15:08 | PN ---
Date/Time of Note Date/Time of Note DATE: 08/27/18 TIME: 15:05 Assessment/Plan VTE Prophylaxis Risk score (from Nsg)>0 risk: 6 SCD applied (from Nsg): No SCD contraindicated: DVT, other Pharmacological prophylaxis: rivaroxaban Lines/Catheters IV Catheter Type (from Nrsg): Saline Lock Urinary Cath still in place: No Assessment/Plan Assessment/Plan 63-year-old male past medical history hypertension, diabetes, right lower extremity DVT for over a year, facial urticaria, obesity, anemia, recent infected right lower extremity venous stasis ulcer/cellulitis diagnosed 1 month ago who presents today with worsening right lower extremity swelling and pain. #Right lower extremity pain and swelling: Again patient presents with DVT in the right lower extremity. Also history of recent infected right lower extremity venous stasis ulcer/cellulitis. 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 Patient just turned 63 so many have more options from [facility]. #Diabetes: A1c was 6.2, sugars stable -Monitor, continue sliding scale insulin #Nephrolithiasis - Symptoms have now resolved. I will not pursue CT urogram. # Hypertension: Continue current medications #Anemia: Hemoglobin stable- monitor CBC daily #Obesity: Counseled on weight cessation, follow-up recommendations from PT and OT consults #High cholesterol: Patient has high triglycerides - started this admission on low-dose statin Dispo: Medically stable for discharge on oral anticoagulation. The patient does need wound care; ideally this would be via home health but he can also go 3 times a week to a wound care center. Currently pending placement via social work. Patient is homeless and lives in his car. Result Diagram: 08/27/18 1020 08/27/18 1020 Subjective 24 Hr Interval Summary Free Text/Dictation No acute overnight events. Has not required analgesics for 12 hours. Patient feeling well. No complaints. Exam/Review of Systems Exam Vitals Vital Signs Date Temp Pulse Resp B/P (MAP) Pulse Ox O2 O2 Flow FiO2 Time Delivery Rate 08/27/18 97.9 60 18 141/86 96 14:00 (104) 08/27/18 Room Air 07:24 Intake and Output 08/26/18 08/26/18 08/27/18 1515:00 23:00 07:00 IntakeIntake Total 1350 ml BalanceBalance 1350 ml Exam Gen: Well appearing man sitting up in chair. Head: Atraumatic Eyes: Normal Conjunctiva ENT: Normal External Ears, Nose and Mouth. Neck: Full range of motion. No meningismus. Resp: Clear to auscultation bilaterally Cardio: Regular rate and rhythm, no murmurs Abd: Soft, non tender, + distended. Normal bowel sounds Ext: Bilateral LE venous stasis skin changes and edema. The right leg has a compression bandage. T Results Results 24hrs Laboratory Tests Test 08/26/18 17:09 08/26/18 20:33 08/27/18 08:13 08/27/18 10:20 Bedside Glucose 126 117 130 White Blood Count 5.6 Red Blood Count 4.57 L Hemoglobin 12.9 L Hematocrit 38.9 L Mean Corpuscular 85.1 Volume Mean Corpuscular 28.2 L Hemoglobin Mean Corpuscular 33.2 Hemoglobin Concent Red Cell 13.3 Distribution Width Platelet Count 182 Mean Platelet Volume 9.4 Immature 1.100 H Granulocytes % Neutrophils % 57.7 Lymphocytes % 26.4 Monocytes % 10.0 Eosinophils % 3.9 Basophils % 0.9 Nucleated Red Blood 0.0 Cells % Immature 0.060 H Granulocytes # Neutrophils # 3.2 Lymphocytes # 1.5 Monocytes # 0.6 Eosinophils # 0.2 Basophils # 0.1 Nucleated Red Blood 0.0 Cells # Sodium Level 143 Potassium Level 3.6 Chloride Level 106 Carbon Dioxide Level 28 Anion Gap 9 Blood Urea Nitrogen 15 Creatinine 1.25 H Est Glomerular 58 L Filtrat Rate mL/min Glucose Level 158 Calcium Level 9.1 Test 08/27/18 12:39 Bedside Glucose 126 Medications Medication Current Medications IV Flush (NS 3 ml) 3 ml PER PROTOCOL IV ; Start 08/23/18 at 19:00 Ondansetron HCl (Zofran Inj) 4 mg Q6H PRN IV NAUSEA/VOMITING; Start 08/23/18 at 19:00 Acetaminophen (Tylenol Tab) 650 mg Q6H PRN PO .PAIN 1-3 OR TEMP; Start 08/23/18 at 19:00 Acetaminophen/ Hydrocodone Bitart ([place] (5/325)) 1 tab Q6H PRN PO .MOD PAIN 4- 6; Start 08/23/18 at 19:00 Morphine Sulfate (morphine) 2 mg Q4H PRN IV .SEVERE PAIN 7-10 Last administered on 08/26/18at 19:39; Admin Dose 2 MG; Start 08/23/18 at 19:00 Docusate Sodium (Colace) 100 mg Q12H PRN PO .CONSTIPATION; Start 08/23/18 at 19:00 Magnesium Hydroxide (Milk Of Mag) 30 ml DAILY PRN PO .CONSTIPATION; Start 08/23/18 at 19:00 Pantoprazole (Protonix Tab) 40 mg DAILY@06 PO Last administered on 08/27/18at 06:01; Admin Dose 40 MG; Start 08/24/18 at 06:00 Lorazepam (Ativan) 0.5 mg Q6H PRN IV ANXIETY; Start 08/23/18 at 19:00 Albuterol/ Ipratropium (Duoneb) 3 ml Q4H RESP THERAPY PRN HHN SHORTNESS OF BREATH; Start 08/23/18 at 19:00 Hydralazine HCl (Apresoline) 10 mg Q6H PRN IV ELEVATED BLOOD PRESSURE; Start 08/23/18 at 19:00 Nitroglycerin (Nitroglycerin (Sl Tab) 0.4 Mg) 1 tab Q5M PRN SL ANGINA; Start 08/23/18 at 19:00 Hydrochlorothiazide (Hydrochlorothiazide) 12.5 mg DAILY PO Last administered on 08/27/18at 08:15; Admin Dose 12.5 MG; Start 08/24/18 at 09:00 Rivaroxaban (Xarelto) 20 mg WITH DINNER PO Last administered on 08/26/18at 17:10; Admin Dose 20 MG; Start 08/24/18 at 18:00 Ceftriaxone Sodium 50 ml @ 100 mls/hr Q24H IVPB Last administered on 08/27/18at 11:01; Admin Dose 100 MLS/HR; Start 08/24/18 at 10:30 Atorvastatin Calcium (Lipitor) 20 mg HS PO Last administered on 08/26/18at 20:38; Admin Dose 20 MG; Start 08/24/18 at 21:00 Insulin Aspart (Novolog Insulin Pen) NOVOLOG *MILD* ALGORITHM WITH MEALS BED TIME SC ; Start 08/24/18 at 21:00 Miscellaneous Information 1 ea NOTE XX ; Start 08/24/18 at 20:00 Glucose (Glutose) 15 gm Q15M PRN PO DECREASED GLUCOSE; Start 08/24/18 at 20:00 Glucose (Glutose) 22.5 gm Q15M PRN PO DECREASED GLUCOSE; Start 08/24/18 at 20:00 Dextrose (D50w Syringe) 25 ml Q15M PRN IV DECREASED GLUCOSE; Start 08/24/18 at 20:00 Dextrose (D50w Syringe) 50 ml Q15M PRN IV DECREASED GLUCOSE; Start 08/24/18 at 20:00 Glucagon (Glucagen) 1 mg Q15M PRN IM DECREASED GLUCOSE; Start 08/24/18 at 20:00 Glucose (Glutose) 15 gm Q15M PRN BUCCAL DECREASED GLUCOSE; Start 08/24/18 at 20:00 BRANDON MORALES MD Aug 27, 2018 15:08
[2018-08-27] MEDS: RIVAROXABAN 20 MG TABLET PO SCH (17:00)
[2018-08-27 19:55] VITALS: BP 139/93; PULSE 63; RESP 17
[2018-08-27] MEDS: ATORVASTATIN 20 MG TAB PO SCH (21:47)
[2018-08-28 01:43] VITALS: BP 132/86; PULSE 67; RESP 18
[2018-08-28] MEDS: PANTOPRAZOLE (EC) 40 MG TAB PO SCH (06:14)
[2018-08-28 07:30] VITALS: BP 124/84; PULSE 65; RESP 17
[2018-08-28] MEDS: INSULIN ASPART [NOVOLOG] 3 ML PEN SC SCH ×4 (08:00→21:00)
[2018-08-28] MEDS: HYDROCHLOROTHIAZIDE 12.5 MG CAP PO SCH (09:23)
[2018-08-28] MEDS: CEFTRIAXONE 1 GM/50 ML (PMX) 50 ML IVPB SCH (09:53)
--- NOTE | 2018-08-28 13:47 | PN ---
Date/Time of Note Date/Time of Note DATE: 08/28/18 TIME: 13:46 Assessment/Plan VTE Prophylaxis Risk score (from Nsg)>0 risk: 9 SCD applied (from Ns): No SCD contraindicated: DVT Pharmacological prophylaxis: rivaroxaban Lines/Catheters IV Catheter Type (from Nrs): Saline Lock Urinary Cath still in place: No Assessment/Plan Assessment/Plan 63-year-old male past medical history hypertension, diabetes, right lower extremity DVT for over a year, facial urticaria, obesity, anemia, recent infected right lower extremity venous stasis ulcer/cellulitis diagnosed 1 month ago who presents today with worsening right lower extremity swelling and pain. #Right lower extremity pain and swelling: Again patient presents with DVT in the right lower extremity. Also history of recent infected right lower extremity venous stasis ulcer/cellulitis. 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 Patient just turned 63 so many have more options from [facility]. #Diabetes: A1c was 6.2, sugars stable -Monitor, continue sliding scale insulin #Nephrolithiasis - Symptoms have now resolved. I will not pursue CT urogram. # Hypertension: Continue current medications #Anemia: Hemoglobin stable- monitor CBC daily #Obesity: Counseled on weight cessation, follow-up recommendations from PT and OT consults #High cholesterol: Patient has high triglycerides - started this admission on low-dose statin Dispo: Medically stable for discharge on oral anticoagulation. The patient does need wound care; ideally this would be via home health but he can also go 3 times a week to a wound care center. Currently pending placement via social work. Patient is homeless and lives in his car. Result Diagram: 08/27/18 1020 08/27/18 1020 Subjective 24 Hr Interval Summary Free Text/Dictation No acute overnight events. Had some leg pain for about an hour after dressing change, but didn't want norco. Exam/Review of Systems Exam Vitals Vital Signs Date Temp Pulse Resp B/P (MAP) Pulse Ox O2 O2 Flow FiO2 Time Delivery Rate 08/28/18 97.3 65 17 124/84 96 07:30 (97) 08/27/18 Room Air 07:24 Intake and Output 08/27/18 08/27/18 08/28/18 1515:00 23:00 07:00 IntakeIntake Total 250 ml 200 ml BalanceBalance 250 ml 200 ml Exam Gen: Well appearing man sitting up in chair. Head: Atraumatic Eyes: Normal Conjunctiva ENT: Normal External Ears, Nose and Mouth. Neck: Full range of motion. No meningismus. Resp: Clear to auscultation bilaterally Cardio: Regular rate and rhythm, no murmurs Abd: Soft, non tender, + distended. Normal bowel sounds Ext: Bilateral LE venous stasis skin changes and edema. The right leg has a compression bandage. Results Results 24hrs Laboratory Tests Test 08/27/18 16:58 08/27/18 21:45 08/28/18 08:20 08/28/18 12:21 Bedside Glucose 128 178 113 132 Medications Medication Current Medications IV Flush (NS 3 ml) 3 ml PER PROTOCOL IV ; Start 08/23/18 at 19:00 Ondansetron HCl (Zofran Inj) 4 mg Q6H PRN IV NAUSEA/VOMITING; Start 08/23/18 at 19:00 Acetaminophen (Tylenol Tab) 650 mg Q6H PRN PO .PAIN 1-3 OR TEMP; Start 08/23/18 at 19:00 Acetaminophen/ Hydrocodone Bitart ([place] (5/325)) 1 tab Q6H PRN PO .MOD PAIN 4- 6; Start 08/23/18 at 19:00 Docusate Sodium (Colace) 100 mg Q12H PRN PO .CONSTIPATION; Start 08/23/18 at 19 :00 Magnesium Hydroxide (Milk Of Mag) 30 ml DAILY PRN PO .CONSTIPATION; Start 08/23/18 at 19:00 Pantoprazole (Protonix Tab) 40 mg DAILY@06 PO Last administered on 08/28/18at 06:14; Admin Dose 40 MG; Start 08/24/18 at 06:00 Lorazepam (Ativan) 0.5 mg Q6H PRN IV ANXIETY; Start 08/23/18 at 19:00 Albuterol/ Ipratropium (Duoneb) 3 ml Q4H RESP THERAPY PRN HHN SHORTNESS OF BREATH; Start 08/23/18 at 19:00 Hydralazine HCl (Apresoline) 10 mg Q6H PRN IV ELEVATED BLOOD PRESSURE; Start 08/23/18 at 19:00 Nitroglycerin (Nitroglycerin (Sl Tab) 0.4 Mg) 1 tab Q5M PRN SL ANGINA; Start 08/23/18 at 19:00 Hydrochlorothiazide (Hydrochlorothiazide) 12.5 mg DAILY PO Last administered on 08/28/18at 09:23; Admin Dose 12.5 MG; Start 08/24/18 at 09:00 Rivaroxaban (Xarelto) 20 mg WITH DINNER PO Last administered on 08/27/18at 17:00; Admin Dose 20 MG; Start 08/24/18 at 18:00 Ceftriaxone Sodium 50 ml @ 100 mls/hr Q24H IVPB Last administered on 08/28/18at 09:53; Admin Dose 100 MLS/HR; Start 08/24/18 at 10:30 Atorvastatin Calcium (Lipitor) 20 mg HS PO Last administered on 08/27/18at 21:47; Admin Dose 20 MG; Start 08/24/18 at 21:00 Insulin Aspart (Novolog Insulin Pen) NOVOLOG *MILD* ALGORITHM WITH MEALS BEDTI ME SC ; Start 08/24/18 at 21:00 Miscellaneous Information 1 ea NOTE XX ; Start 08/24/18 at 20:00 Glucose (Glutose) 15 gm Q15M PRN PO DECREASED GLUCOSE; Start 08/24/18 at 20:00 Glucose (Glutose) 22.5 gm Q15M PRN PO DECREASED GLUCOSE; Start 08/24/18 at 20:00 Dextrose (D50w Syringe) 25 ml Q15M PRN IV DECREASED GLUCOSE; Start 08/24/18 at 20:00 Dextrose (D50w Syringe) 50 ml Q15M PRN IV DECREASED GLUCOSE; Start 08/24/18 at 20:00 Glucagon (Glucagen) 1 mg Q15M PRN IM DECREASED GLUCOSE; Start 08/24/18 at 20:00 Glucose (Glutose) 15 gm Q15M PRN BUCCAL DECREASED GLUCOSE; Start 08/24/18 at 20:00 BRANDON MORALES MD Aug 28, 2018 13:47
[2018-08-28 13:56] VITALS: BP 122/80; PULSE 51; RESP 18
[2018-08-28] MEDS: RIVAROXABAN 20 MG TABLET PO SCH (17:12)
--- NOTE | 2018-08-28 18:07 | CONS ---
DATE OF ADMISSION: 08/23/2018 DATE OF CONSULTATION: REFERRING PHYSICIAN: Dr. Edelmira Vivas and Dr. Brandon Young. REASON FOR CONSULTATION: Right lower extremity chronic DVT. HISTORY OF PRESENT ILLNESS: This is a 63-year-old man. He is well known to me. He has been in the hospital several times over the last several months. He has a right chronic femoral deep vein DVT. It has been there for a year and he has been anticoagulated regularly. He has postphlebitic syndrome and he is supposed to be in chronic right lower extremity compression, but he stops the compression, he gets very swollen and then blisters and he gets cellulitis and that is exactly what happened. I last saw him over a month ago. He was supposed to come and see me for followup once he was discharge d, but he never did. He came to the wound center once, had a compression wrap placed and then was no t followed up and stopped the compression, get very swollen, came in again with cellulitis. He had a venous duplex scan. It shows no change from the previous scan. 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 This has been the same for about a year. He has been taking his Xarelto regularly. He is currently in an [place] wrap and he has been on bed rest, mainly so that the ed zohra is gone and he has no more pain in the right leg. He has had arterial studies in the past which were normal. PAST MEDICAL HISTORY: Significant for some hypertension. He is not diabetic. He is a nonsmoker. Lila alegria has never had any surgery in the past and the DVT, I believe, was unprovoked. It was about a year ago and he was diagnosed at, I think he was at [facility] at that time. He unfortunately, h as been kind of intermittently domiciled and he had been sleeping in his car. I explained to him pre viously when I saw him that that is the worst thing for postphlebitic syndrome because he is not givi ng his veins any chance to decompress. MEDICATIONS: Currently consist of: 1. Lipitor. 2. Insulin. 3. Xarelto. 4. Ceftriaxone. 5. Hydrochlorothiazide. 6. Pantoprazole. 7. DuoNeb. 8. Hydralazine. 9. Nitroglycerin. Now he is diabetic. His glucoses have been elevated and he is not getting Insulin. ALLERGIES: NO KNOWN DRUG ALLERGIES. SOCIAL HISTORY: He is a nonsmoker. He does not drink or use any illicit drugs. 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 REVIEW OF SYSTEMS: He currently denies any complaints. He has no chest pain, no shortness of breath , no nausea, vomiting, diarrhea. No fever, no chills, no recent weight gain or weight loss. He has been ambulating without any problem. Edema in his leg is gone. PHYSICAL EXAMINATION: GENERAL: He is a middle-aged gentleman. He speaks Greek fluently. VITAL SIGNS: He has been afebrile. His blood pressure is 124/84, heart rate is 65, respiratory rate 17. He is 96% sat on room air. NECK: 2+ carotid, radial and brachial pulses bilaterally. LUNGS: Clear. HEART: Regular rate and rhythm. ABDOMEN: Soft, nontender, nondistended. He is obese. EXTREMITIES: He has 2+ femoral, popliteal, DP and PT pulses bilaterally. His right leg is currently wrapped from the foot up to the knee. There is no edema. There is no tenderness. He had some ulce rations and blistering underneath, but I did not unwrap it. He says it is not hurting and it has bee n improving, but no edema or any issues on the left leg and again, his venous duplex scan shows chron ic right femoral and popliteal DVT. This has been there for a year. He needs to be chronically anticoagulated for hypercoagulable issues and really extensive occlusion o f the femoral and popliteal veins with a lot of symptoms. He is very high risk for rethrombosing if his anticoagulation was stopped. I expressed again to him at length that he needs long-term, every d ay compression on the right leg or he is going to have keep having severe edema, leg pain and recurre nt ulcerations. I think he now understands. He is going to come and see me says he gets out of the hospital, but from my standpoint, he can be discharged at this point. He is following up with Dr. Gunner nicole in the wound center and I will see him and make sure he is in the proper compression in the fut ure. Dictated By: BRANDON MARQUIS/CHRISTIAN Conf#: [id number] DID#: [id number] CC: Dr Mcqueen; EDELMIRA VIVAS; ROBERTO العراقيM; BRANDON YOUNG MD;*EndCC*
[2018-08-28 20:00] VITALS: BP 149/88; PULSE 58; RESP 18
[2018-08-28] MEDS: ATORVASTATIN 20 MG TAB PO SCH (20:17)
[2018-08-29 02:00] VITALS: BP 98/59; PULSE 55; RESP 16
[2018-08-29] MEDS: PANTOPRAZOLE (EC) 40 MG TAB PO SCH (06:17)
[2018-08-29] MEDS: INSULIN ASPART [NOVOLOG] 3 ML PEN SC SCH ×4 (08:00→20:46)
[2018-08-29 08:30] VITALS: BP 126/98; PULSE 61; RESP 14
[2018-08-29] MEDS: HYDROCHLOROTHIAZIDE 12.5 MG CAP PO SCH (08:57)
[2018-08-29] MEDS: CEFTRIAXONE 1 GM/50 ML (PMX) 50 ML IVPB SCH (10:44)
[2018-08-29 14:30] VITALS: BP 127/88; PULSE 62; RESP 16
--- NOTE | 2018-08-29 14:38 | PN ---
Date/Time of Note Date/Time of Note DATE: 08/29/18 TIME: 14:36 Assessment/Plan VTE Prophylaxis Risk score (from Ns)>0 risk: 9 SCD applied (from Ns): No SCD contraindicated: DVT Pharmacological prophylaxis: rivaroxaban Lines/Catheters IV [facility]from [facility] Urinary Cath still in place: No Assessment/Plan Assessment/Plan 63-year-old male past medical history hypertension, diabetes, right lower extremity DVT for over a year, facial urticaria, obesity, anemia, recent infected right lower extremity venous stasis ulcer/cellulitis diagnosed 1 month ago who presents today with worsening right lower extremity swelling and pain. #Right lower extremity pain and swelling: Again patient presents with DVT in the right lower extremity. Also history of recent infected right lower extremity venous stasis ulcer/cellulitis. 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 #Diabetes: A1c was 6.2, sugars stable - continue sliding scale insulin #Nephrolithiasis - Symptoms have now resolved. # Hypertension: Continue current medications #Anemia: Hemoglobin stable- monitor CBC daily #Obesity: Counseled on weight cessation, follow-up recommendations from PT and OT consults #High cholesterol: Patient has high triglycerides - started this admission on low-dose statin Dispo: Medically stable for discharge on oral anticoagulation. The patient does need wound care; ideally this would be via home health but he can also go 3 times a week to a wound care center. Currently pending placement via social work. Patient is homeless and lives in his car. Result Diagram: 08/29/18 1238 08/29/18 1238 Subjective 24 Hr Interval Summary Free Text/Dictation Patient feeling well. No complaints. Exam/Review of Systems Exam Vitals Vital Signs Date Temp Pulse Resp B/P (MAP) Pulse Ox O2 O2 Flow FiO2 Time Delivery Rate 08/29/18 97.8 61 14 126/98 97 Room Air 08:30 (107) Intake and Output 08/28/18 08/28/18 08/29/18 1515:00 23:00 07:00 IntakeIntake Total 50 ml BalanceBalance 50 ml Exam Gen: Well appearing man sitting up in chair. Head: Atraumatic Eyes: Normal Conjunctiva ENT: Normal External Ears, Nose and Mouth. Neck: Full range of motion. No meningismus. Resp: Clear to auscultation bilaterally Cardio: Regular rate and rhythm, no murmurs Abd: Soft, non tender, + distended. Normal bowel sounds Ext: Bilateral LE venous stasis skin changes and edema. The right leg has a compression bandage. Results Results 24hrs Laboratory Tests Test 08/28/18 17:07 08/28/18 21:27 08/29/18 08:51 08/29/18 12:30 Bedside Glucose 132 147 114 167 Test 08/29/18 12:33 08/29/18 12:38 Bedside Glucose 186 White Blood Count 9.4 # Red Blood Count 5.05 Hemoglobin 14.3 Hematocrit 43.2 Mean Corpuscular 85.5 Volume Mean Corpuscular 28.3 L Hemoglobin Mean Corpuscular 33.1 Hemoglobin Concent Red Cell 13.4 Distribution Width Platelet Count 207 Mean Platelet Volume 9.5 Immature 0.900 H Granulocytes % Neutrophils % 66.0 Lymphocytes % 21.3 Monocytes % 7.8 Eosinophils % 3.4 Basophils % 0.6 Nucleated Red Blood 0.0 Cells % Immature 0.080 H Granulocytes # Neutrophils # 6.2 Lymphocytes # 2.0 Monocytes # 0.7 Eosinophils # 0.3 Basophils # 0.1 Nucleated Red Blood 0.0 Cells # Sodium Level 141 Potassium Level 4.0 Chloride Level 103 Carbon Dioxide Level 27 Anion Gap 11 Blood Urea Nitrogen 24 H Creatinine 1.14 Est Glomerular > 60 Filtrat Rate mL/min Glucose Level 181 Calcium Level 9.9 Medications Medication Current Medications IV Flush (NS 3 ml) 3 ml PER PROTOCOL IV ; Start 08/23/18 at 19:00 Ondansetron HCl (Zofran Inj) 4 mg Q6H PRN IV NAUSEA/VOMITING; Start 08/23/18 at 19:00 Acetaminophen (Tylenol Tab) 650 mg Q6H PRN PO .PAIN 1-3 OR TEMP Last administered on 08/29/18at 08:56; Admin Dose 650 MG; Start 08/23/18 at 19:00 Acetaminophen/ Hydrocodone Bitart ([place] (5/325)) 1 tab Q6H PRN PO .MOD PAIN 4- 6; Start 08/23/18 at 19:00 Docusate Sodium (Colace) 100 mg Q12H PRN PO .CONSTIPATION; Start 08/23/18 at 19:00 Magnesium Hydroxide (Milk Of Mag) 30 ml DAILY PRN PO .CONSTIPATION; Start 08/23/18 at 19:00 Pantoprazole (Protonix Tab) 40 mg DAILY@06 PO Last administered on 08/29/18at 06:17; Admin Dose 40 MG; Start 08/24/18 at 06:00 Lorazepam (Ativan) 0.5 mg Q6H PRN IV ANXIETY; Start 08/23/18 at 19:00 Albuterol/ Ipratropium (Duoneb) 3 ml Q4H RESP THERAPY PRN HHN SHORTNESS OF BREATH; Start 08/23/18 at 19:00 Hydralazine HCl (Apresoline) 10 mg Q6H PRN IV ELEVATED BLOOD PRESSURE; Start 08/23/18 at 19:00 Nitroglycerin (Nitroglycerin (Sl Tab) 0.4 Mg) 1 tab Q5M PRN SL ANGINA; Start 08/23/18 at 19:00 Hydrochlorothiazide (Hydrochlorothiazide) 12.5 mg DAILY PO Last administered on 08/29/18at 08:57; Admin Dose 12.5 MG; Start 08/24/18 at 09:00 Rivaroxaban (Xarelto) 20 mg WITH DINNER PO Last administered on 08/28/18at 17:12; Admin Dose 20 MG; Start 08/24/18 at 18:00 Ceftriaxone Sodium 50 ml @ 100 mls/hr Q24H IVPB Last administered on 08/29/18at 10:44; Admin Dose 100 MLS/HR; Start 08/24/18 at 10:30 Atorvastatin Calcium (Lipitor) 20 mg HS PO Last administered on 08/28/18 20:17; Admin Dose 20 MG; Start 08/24/18 at 21:00 Insulin Aspart (Novolog Insulin Pen) NOVOLOG *MILD* ALGORITHM WITH MEALS BEDTIME SC Last administered on 08/29/18at 12:39; Admin Dose 2 UNIT; Start 08/24/18 at 21:00 Miscellaneous Information 1 ea NOTE XX ; Start 08/24/18 at 20:00 Glucose (Glutose) 15 gm Q15M PRN PO DECREASED GLUCOSE; Start 08/24/18 at 20:00 Glucose (Glutose) 22.5 gm Q15M PRN PO DECREASED GLUCOSE; Start 08/24/18 at 20:00 Dextrose (D50w Syringe) 25 ml Q15M PRN IV DECREASED GLUCOSE; Start 08/24/18 at 20:00 Dextrose (D50w Syringe) 50 ml Q15M PRN IV DECREASED GLUCOSE; Start 08/24/18 at 20:00 Glucagon (Glucagen) 1 mg Q15M PRN IM DECREASED GLUCOSE; Start 08/24/18 at 20:00 Glucose (Glutose) 15 gm Q15M PRN BUCCAL DECREASED GLUCOSE; Start 08/24/18 at 20:00 BRANDON MORALES MD Aug 29, 2018 14:37
[2018-08-29] MEDS: RIVAROXABAN 20 MG TABLET PO SCH (17:12)
[2018-08-29 20:36] VITALS: BP 127/85; PULSE 67; RESP 18
[2018-08-29] MEDS: ATORVASTATIN 20 MG TAB PO SCH (20:46)
[2018-08-30 02:03] VITALS: BP 114/67; PULSE 60; RESP 18
[2018-08-30] MEDS: PANTOPRAZOLE (EC) 40 MG TAB PO SCH (05:41)
[2018-08-30] MEDS ORDERED: morphine 10 MG INJ IM ONE (07:00)
[2018-08-30] MEDS: INSULIN ASPART [NOVOLOG] 3 ML PEN SC SCH ×3 (08:00→17:18)
[2018-08-30 08:15] VITALS: BP 115/74; PULSE 62; RESP 14
[2018-08-30] MEDS: HYDROCHLOROTHIAZIDE 12.5 MG CAP PO SCH (08:24)
[2018-08-30] MEDS ORDERED: NAPROXEN 500 MG TAB PO PRN (13:00)
[2018-08-30 14:30] VITALS: BP 128/81; PULSE 63; RESP 15
--- NOTE | 2018-08-30 14:52 | PDOCDIS ---
Discharge Instructions DIAGNOSIS Discharge Diagnosis R leg DVT CONDITION [id number] Patient Condition: [id number] Good HOME CARE INSTRUCTIONS: [id number] Diet Instructions: [id number] Regular ACTIVITY: [id number] Activity Restrictions: [id number] No Restrictions FOLLOW UP/APPOINTMENTS Follow-up Plan 1. Continue all medications as prescribed. I refilled another month of Eliquis, prescription was sent to the [facility] on [address] in [place]. 2. Return to [facility] ([facility]) three times weekly for wound dressing changes. 3. Take ibuprofen and acetaminophen as needed for pain. BRANDON MORALES MD Aug 30, 2018 14:52
--- NOTE | 2018-08-30 17:01 | DS ---
Date/Time of Note Date/Time of Note DATE: 08/30/18 TIME: 16:56 Discharge Summary Admission/Discharge Info Admit Date/Time Aug 23, 2018 at 19:06 Discharge Date/Time Aug 30, 2018 Discharge Diagnosis R leg DVT Patient Condition: Good Consults Dr. Corrigan, podiatry Dr. 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 Patient sees podiatry and is currently following up with them at the wound center. As well, the patient had been seen by the vascular surgeon Dr. Friedman as a consultation in the past. Dr. Friedman had documented that the patient had extensive right femoral-popliteal DVT that is fully noncompressible and therefore recannulization was not possible. He had severe post phlebitic syndrome. This time patient complains of 3 weeks of extensive swelling of his right lower extremity. The pain has worsened. Patient claims to be compliant with Xarelto which he has been taking as instructed. He states the pain in his right lower extremity is 10 out of 10 in intensity. Patient denies fevers no shaking no chills, no upper lower GI bleeding, diarrhea constipation, nausea vomiting. He went to his primary care physician's office today Dr. Mcqueen who instructed him to come emergently to the ER for further evaluation. He denies any chest pain or shortness of breath. Hospital Course The patient was resumed on his home medications, including Xarelto for anticoagulation. He had severe pain on admission and required frequent morphine. He reported it was R leg pain. However, about hospital day 3 he suddenly passed 4 large kidney stones each about 0.5 cm. Soon after he pain resolved and he required no pain meds. I ordered the stones sent for analysis but unfortunately it looks like there are no results; they may have been lost. [facility] offered the patient several housing options but he declined, and prefers to go back to his car. Home Meds Active Scripts Rivaroxaban* (Xarelto*) 20 Mg Tablet, 20 MG PO WITH DINNER, #30 TAB Prov:BRANDON MORLAES MD 08/30/18 Reported Medications Metformin Hcl* (Metformin Hcl*) 500 Mg Tablet, 500 MG PO WITH BREAKFAST DINNE, #60 TAB 06/26/18 Hydrochlorothiazide* (Hydrochlorothiazide*) 12.5 Mg Tablet, 12.5 MG PO DAILY, #30 TAB 06/26/18 Discontinued Scripts Azithromycin* (Zithromax*) 250 Mg Tablet, 250 MG PO .ZPACK DIRECTED for 5 Days, #6 TAB TAKE 500 MG (2 TABS) THE FIRST DAY THEN 250 MG (1 TAB) DAYS 2-5 Prov:ROBERT PLASENCIA MD 08/04/18 Albuterol Sulfate* (Proair HFA*) 8.5 Gm Hfa.aer.ad, 2 PUFF INH Q6H PRN for WHEEZING AND SOB, #1 INHALER Prov:ROBERT PLASENCIA MD 08/04/18 Doxycycline* (Vibramycin*) 100 Mg Tab, 100 MG PO BID, #10 TAB Prov:ESTELA ESCOTO NP 07/27/18 Follow-up Plan 1. Continue all medications as prescribed. I refilled another month of Eliquis, prescription was sent to the [facility] on [address] in [place]. 2. Return to [facility] ([facility]) three times weekly for wound dressing changes. 3. Take ibuprofen and acetaminophen as needed for pain. Primary Care Provider Not On Staff Doctor Time spent on discharge: > 30 minutes Pending Labs Laboratory Tests Test 08/29/18 17:08 08/29/18 20:44 08/30/18 02:10 08/30/18 08:23 Bedside 153 183 157 116 Glucose mg/dL (70-220) mg/dL (70-220) mg/dL (70-220) mg/dL (70-220) Test 08/30/18 09:17 08/30/18 09:18 08/30/18 12:39 White Blood 10.2 Count 10^3/ul (4.8-10 .8) Red Blood 5.16 Count 10^6/ul (4.70-6 .10) Hemoglobin 14.4 g/dl (14.0-18.0 ) Hematocrit 44.8 % (42.0-52.0) Mean 86.8 Corpuscular fl (82.0-101.0) Volume Mean 27.9 Corpuscular pg (29.0-33.0) Hemoglobin Mean 32.1 Corpuscular g/dl (32.0-37.0 Hemoglobin Conc ) ent Red Cell 13.5 Distribution % (11.5-14.5) Width Platelet Count 196 10^3/UL (140-41 5) Mean Platelet 9.6 Volume fl (7.4-10.4) Immature 0.900 Granulocytes % % (0.001-0.429) Neutrophils % 61.7 % (39.0-77.0) Lymphocytes % 24.5 % (15.0-51.0) Monocytes % 9.1 % (0.0-11.0) Eosinophils % 3.1 % (0.0-7.0) Basophils % 0.7 % (0.0-2.0) Nucleated Red 0.0 Blood Cells % /100WBC (0.0-0. 0) Immature 0.090 Granulocytes # 10^3/ul (0.0-0. 031) Neutrophils # 6.3 10^3/ul (1.6-7. 5) Lymphocytes # 2.5 10^3/ul (0.8-2. 9) Monocytes # 0.9 10^3/ul (0.3-0. 9) Eosinophils # 0.3 10^3/ul (0.0-0. 5) Basophils # 0.1 10^3/ul (0.0-0. 1) Nucleated Red 0.0 Blood Cells # 10^3/ul (0.0-0. 0) Sodium Level 141 mmol/L (135-14 4) Potassium 4.1 Level mmol/L (3.5-5. 1) Chloride Level 102 mmol/L (97-110 ) Carbon Dioxide 28 Level mmol/L (21-31) Anion Gap 11 (5-13) Blood Urea 29 Nitrogen mg/dl (7-20) Creatinine 1.38 mg/dl (0.61-1. 24) Est Glomerular 52 Filtrat mL/min (>60) Rate mL/min Glucose Level 145 mg/dl (70-220) Calcium Level 9.6 mg/dl (8.4-10. 2) Bedside 148 Glucose mg/dL (70-220) BRANDON MORALES MD Aug 30, 2018 17:01
[2018-08-30] MEDS: RIVAROXABAN 20 MG TABLET PO SCH (17:18)
== END 2018-08-30 18:00 | disposition home or self-care (01) | DRG 300 ==
LOC: E/R 15:17 → PP2 19:06 → 5EC 21:11
PROVIDERS: ADMIT Hospitalist; ATTEND Internal Medicine
DX: I82.511 Chronic embolism and thrombosis of right femoral vein (principal); L03.115 Cellulitis of right lower limb; I83.228 Varicose veins of left lower extremity with both ulcer of other part of lower extremity and inflammation; L97.829 Non-pressure chronic ulcer of other part of left lower leg with unspecified severity; I82.531 Chronic embolism and thrombosis of right popliteal vein; E11.42 Type 2 diabetes mellitus with diabetic polyneuropathy; I10 Essential (primary) hypertension; Z79.02 Long term (current) use of antithrombotics/antiplatelets; L50.8 Other urticaria; E66.9 Obesity, unspecified; Z68.33 Body mass index [BMI] 33.0-33.9, adult; Z59.0 Homelessness; D64.9 Anemia, unspecified; N20.0 Calculus of kidney
CPT/HCPCS: 80048; 80053; 80061; 81001; 82355; 82962; 83036; 83735; 84100; 84439; 84443; 84484; 85025; 85610; 85730; 93971; 96374; 96375; 97161; 97166; J0696; J1815; J2270; J2405

== ENCOUNTER 2018-09-20 11:04 | Emergency (ER) | payer OTHER ==
[~2018-09-20] VITALS: Ht 182.9 cm; Wt 111.0 kg
[~2018-09-20 11:04] MED LIST changes: -ALBU8.5H8 INH; +ALBU90AE INHALATION; +AMOX500C2 PO; -AZIT250T PO; -DOXY100T2 PO; +FURO20TA3 PO; +HYDR-3980 PO; +METF100010 PO; +NALO4SPR NS; +NAPR-688 PO; +TRAM50TA PO
[2018-09-20 11:10] VITALS: BP 164/92; PULSE 70; RESP 18; Ht 182.9 cm; Wt 111.0 kg
== END 2018-09-20 13:43 | disposition home or self-care (01) ==
LOC: FTE 11:04
DX: M19.041 Primary osteoarthritis, right hand (principal); I10 Essential (primary) hypertension; E11.9 Type 2 diabetes mellitus without complications; Z79.84 Long term (current) use of oral hypoglycemic drugs; Z86.718 Personal history of other venous thrombosis and embolism
CPT/HCPCS: 73590; 93971

== ENCOUNTER 2018-09-30 11:02 | Emergency (ER) | payer OTHER ==
[~2018-09-30] VITALS: Wt 90.0 kg
[2018-09-30 11:06] VITALS: BP 140/79; PULSE 89; RESP 18
[2018-09-30] MEDS ORDERED: ONDANSETRON (ODT) 4 MG TAB ODT STA (13:03)
[2018-09-30] MEDS ORDERED: HYDROCODONE/APAP (10/325) TAB PO ONE (13:30)
== END 2018-09-30 16:48 | disposition home or self-care (01) ==
LOC: E/R 11:02
DX: N20.0 Calculus of kidney (principal); M79.89 Other specified soft tissue disorders; I10 Essential (primary) hypertension; E11.9 Type 2 diabetes mellitus without complications; Z79.02 Long term (current) use of antithrombotics/antiplatelets; Z79.84 Long term (current) use of oral hypoglycemic drugs
CPT/HCPCS: 81003; 99283